=== PATIENT | male | born 1940 | race Caucasian/White ===

== ENCOUNTER 2018-05-26 07:39 | Day surgery (SDC) | payer OTHER ==
[~2018-05-26] VITALS: Ht 185.4 cm; Wt 101.3 kg
[~2018-05-26 07:39] MED LIST: ALBU90OI61 INH; ASPI81CH PO; ATOR40TA PO; BUDE10.22 INH; BUDE6HFA; BUDE6HFA INH; CHOL10002; CLOP75 PO; CLOTRIMAZOLE 1%; Calcium Carbon650 MG PO; FURO20 PO; Fruity C250 MG PO; GABA300 PO; LEVSOD75 PO; LISI20 PO; Lisinopril2.5 MG PO; MECL25 PO; METO50ER PO; OMEP20ER PO; OMEPRAZOLE BIC PO; PANT40 PO; PRED20 PO; ROPI1 PO; ROPI2 PO; SILD50TA PO; SPIR25 PO; Synthroid175 MCG PO; TERA5 PO; TIOT18 INH; TRIA80TC TOP; Terazosin HCl10 MG PO; Ventolin/Prove6.7 GM; Viagra100 MG PO; ferrous sulfate PO
[2018-05-26] MEDS ORDERED: Fruity C250 MG PO (08:40)
[2018-05-26] MEDS ORDERED: ASPI81CH PO (08:40)
[2018-05-26] MEDS ORDERED: Ferrous Sulfat325 M2 PO (08:41)
[2018-05-26] MEDS ORDERED: ATOR40TA PO (08:41)
[2018-05-26] MEDS ORDERED: METO100ER PO (08:42)
[2018-05-26] MEDS ORDERED: LISI5 PO (08:42)
[2018-05-26] MEDS ORDERED: PRAM.5 PO (08:43)
[2018-05-26] MEDS ORDERED: MYCO250 PO (08:45)
[2018-05-26] MEDS ORDERED: PANT40 PO (08:45)
[2018-05-26] MEDS ORDERED: ROPI2 PO (08:46)
[2018-05-26] MEDS ORDERED: SPIR25 PO (08:46)
--- NOTE | 2018-05-26 08:53 | NUR ---
05/26/18 0853 Charline Morrow V PT RESTING WITH HEAD ELEVATED IN BED, SIDE RAILS IN PLACE, CALL LIGHT WITHIN REACH, VSS, PT TEACHING COMPLETED. PT STATES HE IS COMFORTABLE AND DENIES PAIN, DISCOMFORT, AND QUESTIONS AT THIS TIME.
--- NOTE | 2018-05-26 10:10 | NUR ---
05/26/18 1010 Xochilt Hernández DISCUSSED DC INSTRUCTIONS W/PT, ANSWERED ALL QUESTIONS. PT IS NOW WAITING FOR RIDE TO ARRIVE.
== END 2018-05-26 10:10 | disposition home or self-care (01) ==
LOC: ORSCSDS 07:39
PROVIDERS: Ophthalmology
PROC: 08RJ3JZ Replacement of Right Lens with Synthetic Substitute, Percutaneous Approach (ICD-10-PCS; principal; 2018-05-26 09:30)
DX: H25.11 Age-related nuclear cataract, right eye (principal); I10 Essential (primary) hypertension; J44.9 Chronic obstructive pulmonary disease, unspecified; I25.2 Old myocardial infarction; Z79.899 Other long term (current) drug therapy
CPT/HCPCS: J2001; J2250; J3301; J7120; V2632

== ENCOUNTER 2018-06-16 06:04 | Day surgery (SDC) | payer OTHER ==
[~2018-06-16] VITALS: Ht 185.4 cm; Wt 103.5 kg
[~2018-06-16 06:04] MED LIST changes: +Ferrous Sulfat325 M2 PO; +LISI5 PO; +METO100ER PO; +MYCO250 PO; +PRAM.5 PO
--- NOTE | 2018-06-16 06:40 | NUR ---
06/16/18 0640 Ayse Quintero 1 IV ATTEMPT RIGHT HAND BY ORSC.NVP, COULDN'T FEED CATHETER. 1 IV ATTEMPT RIGHT WRSIT BY ORSC.KNM, COULDN'T FEED CATHETER. SUCCESSFUL IV PLACED IN RIGHT FOREARM BY ORSC.KNM. PT TOLERATED ALL ATTEMPTS WELL.
--- NOTE | 2018-06-16 07:54 | NUR ---
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
== END 2018-06-16 08:06 | disposition home or self-care (01) ==
LOC: ORSCSDS 06:04
PROVIDERS: Ophthalmology
PROC: 08RK3JZ Replacement of Left Lens with Synthetic Substitute, Percutaneous Approach (ICD-10-PCS; principal; 2018-06-16 07:30)
DX: H25.12 Age-related nuclear cataract, left eye (principal); I10 Essential (primary) hypertension; I25.2 Old myocardial infarction; K21.9 Gastro-esophageal reflux disease without esophagitis; J44.9 Chronic obstructive pulmonary disease, unspecified; J45.998 Other asthma; E66.9 Obesity, unspecified; Z68.30 Body mass index [BMI] 30.0-30.9, adult; Z79.82 Long term (current) use of aspirin; Z79.899 Other long term (current) drug therapy
CPT/HCPCS: J2001; J2250; J3301; J7120; V2632

== ENCOUNTER 2018-07-02 04:19 | Inpatient (IN) | payer MEDICARE ==
[~2018-07-02] VITALS: Ht 218.4 cm; Wt 93.5 kg
[2018-07-02 04:57] LABS: BASOPHILS ABSOLUTE AUTO 0.05 K/mm3 (0.00-0.23); BASOPHILS PERCENT AUTO 0 % (0-2); EOSINOPHILS ABSOLUTE AUTO 0.02 K/mm3 (0.00-0.68); EOSINOPHILS PERCENT AUTO 0 % (0-6); Hematocrit 38.1 % (37.0-53.0); Hemoglobin 11.5 g/dL (13.5-17.5); IMMATURE GRAN ABSOLUTE AUTO 0.33 K/mm3 (0.00-0.10); IMMATURE GRAN PERCENT AUTO 2 % (0-1); LYMPHOCYTES ABSOLUTE AUTO 1.49 K/mm3 (0.84-5.20); LYMPHOCYTES PERCENT AUTO 7 % (21-46); MONOCYTES ABSOLUTE AUTO 1.25 K/mm3 (0.16-1.47); MONOCYTES PERCENT AUTO 6 % (4-13); Mean Corpuscular HGB 31.9 pg (26.0-34.0); Mean Corpuscular HGB Conc 30.2 g/dL (31.5-36.5); Mean Corpuscular Volume 106 fL (80-100); Mean Platelet Volume 11.1 fL (9.1-12.4); NEUTROPHILS ABSOLUTE AUTO 17.65 K/mm3 (1.96-9.15); NEUTROPHILS PERCENT AUTO 85 % (41-73); NRBC ABSOLUTE 0.06 K/mm3 (0.00-0.02); NRBC Auto 0.3 /100 WBC (0.0-0.2); Platelet Count 236 K/mm3 (150-400); RDW Coefficient Variation 15.2 % (11.7-14.2); RDW Standard Deviation 58.4 fL (35.1-46.3); Red Blood Cell Count 3.61 M/mm3 (4.30-5.90); White Blood Cell Count 20.79 K/mm3 (4.00-11.30)
[2018-07-02] MEDS ORDERED: AMOX250 PO (04:58)
[2018-07-02] MEDS ORDERED: GUAI600T33 PO (05:00)
[2018-07-02] MEDS ORDERED: CODE30 PO (05:00)
[2018-07-02] MEDS ORDERED: Calcium Carbon650 MG PO (05:00)
[2018-07-02] MEDS ORDERED: LISI20 PO (05:01)
[2018-07-02] MEDS ORDERED: LEVSOD75 PO (05:01)
[2018-07-02] MEDS ORDERED: OLOP.1OPSO BOTHEYES (05:02)
[2018-07-02] MEDS ORDERED: PRAM.5 PO (05:02)
[2018-07-02] MEDS ORDERED: METO100ER PO (05:02)
[2018-07-02] MEDS ORDERED: PANT40 PO (05:02)
[2018-07-02] MEDS ORDERED: PRED20 PO (05:03)
[2018-07-02] MEDS ORDERED: TORS10 PO (05:03)
[2018-07-02] MEDS ORDERED: ASPI81CH PO (05:04)
[2018-07-02] MEDS ORDERED: Ferrous Sulfat325 MG PO (05:04)
[2018-07-02] MEDS ORDERED: ASCO500 PO (05:04)
[2018-07-02] MEDS ORDERED: PSYSENPA PO (05:05)
[2018-07-02] MEDS ORDERED: MYCO250 PO (05:05)
[2018-07-02 05:25] LABS: Albumin, Blood 3.7 g/dL (3.4-5.0); Albumin/Globulin Ratio 1.2 (0.8-1.8); Bilirubin, Total 0.9 mg/dL (0.1-1.0); Bun/Creatinine Ratio 27.7 (12.0-20.0); Calcium, Blood 8.9 mg/dL (8.5-10.1); Creatinine, Blood 1.84 mg/dL (0.60-1.20); Globulin, Blood 3.2 g/dL (2.2-4.0); Potassium, Blood 4.8 mmol/L (3.5-5.5); Total Protein, Blood 6.9 g/dL (6.4-8.2); Troponin I 0.032 ng/mL (0.000-0.040)
[2018-07-02 06:11] LABS: PCO2 Arterial 37.7 mmHg (35-45); PO2 Arterial 86.1 mmHg (80-100); pH Blood Arterial 7.45 (7.35-7.45)
--- NOTE | 2018-07-02 18:48 | NUR ---
PT ADMITTED 1500 TODAY. ADMIT DONE. PT STATES NO BM 2 WEEKS ABD FIRM. CALLED DR EARL, ORDERS FOR BOWEL PREP DONE. BROWN COW, MIRALAX, SENNA GIVEN. BSC PLACED. PT THINKS MAY HELP. PT STILL ON 4L O2 AND COARSE T/O. SPUTUM NEEDED. CUP AT BEDSIDE. ++NOTE: IS IV IN RT ANKLE++ NO OTHER CONCERNS AT THIS TIME. WILL PASS TO PREETI SANDOVAL. BED IN LOW POSTION, CALL LITE IN REACH, CALLS APPROP
--- NOTE | 2018-07-02 18:52 | NUR ---
1600 DR EARL CALLED RE LOW BP 95/47 AND STATUS OF L/R'S. OKAY ONE BAG ONLY WITH THE CHF HISTORY. CONTINUE TO MONITOR. 1830 BP 109/53. IVF RUNNING AT 100. WILL BE FOR ONE BAG ABOVE NOTED.
[2018-07-03 01:41] LABS: Adenovirus Not Detected (NOT DETECT); Bordetella pertussis Not Detected (NOT DETECT); Chlamydophila pneumoniae Not Detected (NOT DETECT); Coronavirus 229E Not Detected (NOT DETECT); Coronavirus HKU1 Not Detected (NOT DETECT); Coronavirus NL63 Not Detected (NOT DETECT); Coronavirus OC43 Not Detected (NOT DETECT); Human Metapneumovirus Not Detected (NOT DETECT); Human Rhinovirus/Enterovirus Not Detected (NOT DETECT); Influenza A Not Detected (NOT DETECT); Influenza A/2009-H1 Not Detected (NOT DETECT); Influenza A/H1 Not Detected (NOT DETECT); Influenza A/H3 Not Detected (NOT DETECT); Influenza B Not Detected (NOT DETECT); Mycoplasma pneumoniae Not Detected (NOT DETECT); Parainfluenza Virus 1 Not Detected (NOT DETECT); Parainfluenza Virus 2 Not Detected (NOT DETECT); Parainfluenza Virus 3 Not Detected (NOT DETECT); Parainfluenza Virus 4 Not Detected (NOT DETECT); Respiratory Syncytial Virus Not Detected (NOT DETECT)
--- NOTE | 2018-07-03 07:35 | NUR ---
SHIFT SUMMARY PT WAS UNABLE TO SLEEP DESPITE BEING TIRED. PT CONTINUED TO SIT ON SIDE OF BED. PT ONLY RECIEVED ONE LITER OF LR ORDERED. PT DENIED ANY SOB OR DIFFICULTY BREATHING. PT HAD NO COMPLAINTS OTHER THAN UNABLE TO SLEEP. PT IS CONCERNED ABOUT HIS EYE DROPS FROM HOME. HE STATES HE NEEDS THEM AND CAN NOT REMEMBER THE NAME. HIS IS GOING TO CALL AND GET NAME OF DROPS THIS AM. PT IS BREATHING EAST AND CALL LIGHT IN REACH.
--- NOTE | 2018-07-03 16:30 | NUR ---
INCENTIVE SPIROMETER GIVEN TO PT, PT DEMONSTRATED CORRECT USAGE. PT INSTRUCTED TO USE SEVERAL TIMES EVERY TWO HOURS FROM WAKING TO HOUR OF SLEEP
--- NOTE | 2018-07-03 18:32 | NUR ---
PT ON RA SINCE THIS MORNING, O2 SATS HOLDING IN THE 90'S WITHOUT DIFFICULTY. INCENTIVE SPIROMETER GIVEN TO PT AND HE IS USING APPROPRIATELY. NO C/O PAIN THIS SHIFT. NO ACUTE CHANGES NOTED, WILL CONTINUE TO MONITOR AND REPORT TO ONCOMING RN
--- NOTE | 2018-07-04 04:08 | NUR ---
SHIFT SUMMARY PT HAD SEVERAL SMALL BM'S THIS SHIFT. PT STILL COMPLAINS OF CONSTIPATION. SUPPOSITORY WAS ORDERED BY PROVIDER. LATER IN SHIFT PT BEGAN OF HAVING INCREASED BACK PAIN AND WAS TX PER EMAR. PT CONTINUED TO HAVE DISCOMFORT. PROVIDER CALLED AND ATIVAN WAS ORDERED FOR OT. PT WAS ABLE TO FALL ASLEEP. PT IS CURRENTLY SLEEPING AND BREATHING EASY. CALL LIGHT IN REACH.
[2018-07-04 08:35] LABS: BASOPHILS ABSOLUTE AUTO 0.01 K/mm3 (0.00-0.23); BASOPHILS PERCENT AUTO 0 % (0-2); EOSINOPHILS PERCENT AUTO 0 % (0-6); Hematocrit 35.1 % (37.0-53.0); Hemoglobin 10.9 g/dL (13.5-17.5); IMMATURE GRAN ABSOLUTE AUTO 0.14 K/mm3 (0.00-0.10); IMMATURE GRAN PERCENT AUTO 1 % (0-1); LYMPHOCYTES ABSOLUTE AUTO 0.43 K/mm3 (0.84-5.20); LYMPHOCYTES PERCENT AUTO 3 % (21-46); MONOCYTES ABSOLUTE AUTO 0.56 K/mm3 (0.16-1.47); MONOCYTES PERCENT AUTO 4 % (4-13); Mean Corpuscular HGB 32.2 pg (26.0-34.0); Mean Corpuscular HGB Conc 31.1 g/dL (31.5-36.5); Mean Corpuscular Volume 104 fL (80-100); Mean Platelet Volume 10.6 fL (9.1-12.4); NEUTROPHILS ABSOLUTE AUTO 12.58 K/mm3 (1.96-9.15); NEUTROPHILS PERCENT AUTO 92 % (41-73); Platelet Count 253 K/mm3 (150-400); RDW Coefficient Variation 14.7 % (11.7-14.2); RDW Standard Deviation 56.5 fL (35.1-46.3); Red Blood Cell Count 3.39 M/mm3 (4.30-5.90); White Blood Cell Count 13.72 K/mm3 (4.00-11.30)
[2018-07-04 08:43] LABS: Calcium, Blood 9.4 mg/dL (8.5-10.1); Creatinine, Blood 1.26 mg/dL (0.60-1.20); Potassium, Blood 4.9 mmol/L (3.5-5.5)
--- NOTE | 2018-07-04 17:58 | NUR ---
PT REPORTING SIGNIFICANT PAIN TO HIS UPPER BACK WHEN HE COUGHS, TEARING UP AFTER A COUGHING SPELL. ORDERS RECEIVED FROM DR EARL FOR 1 NORCO PO Q6H PRN PAIN. PT MEDICATED TWICE, HE REPORTS RELIEF THE FIRST TIME, NOT SO MUCH THE SECOND TIME AROUND. HE HAS STAYING ON ROOM AIR WITH SATS IN THE MID TO UPPER 90'S. LOOSE MOSIT SOUNDING COUGH, NON PRODUCTIVE AT THIS TIME. HE IS HOPING TO BE DISCHARGED HOME TOMORROW. NO ACUTE CHANGES NOTED THIS SHIFT, WILL CONTINUE TO MONITOR AND REPORT TO ONCOMING RN.
--- NOTE | 2018-07-05 04:25 | NUR ---
SHIFT SUMMARY PT CONTINUES TO HAVE EPISODES OF BACK PAIN. PT STATES IT COMES AND GOES WITH HIS COUGH. PT TX PER EMAR AND WAS ABLE TO SLEEP. PT DID WAKE UP WITH INCREASED COUGH AND WAS TX PER EMAR. PT IS SLEEPING AND BREATHING EASY. CALL LIGHT IN REACH.
[2018-07-05 06:16] LABS: BASOPHILS ABSOLUTE AUTO 0.01 K/mm3 (0.00-0.23); BASOPHILS PERCENT AUTO 0 % (0-2); EOSINOPHILS PERCENT AUTO 0 % (0-6); IMMATURE GRAN ABSOLUTE AUTO 0.06 K/mm3 (0.00-0.10); IMMATURE GRAN PERCENT AUTO 1 % (0-1); LYMPHOCYTES PERCENT AUTO 4 % (21-46); MONOCYTES PERCENT AUTO 6 % (4-13); Mean Corpuscular HGB 31.4 pg (26.0-34.0); Mean Corpuscular HGB Conc 30.3 g/dL (31.5-36.5); Mean Corpuscular Volume 104 fL (80-100); Mean Platelet Volume 10.5 fL (9.1-12.4); NEUTROPHILS ABSOLUTE AUTO 7.53 K/mm3 (1.96-9.15); NEUTROPHILS PERCENT AUTO 90 % (41-73); NRBC ABSOLUTE 0.02 K/mm3 (0.00-0.02); NRBC Auto 0.2 /100 WBC (0.0-0.2); Platelet Count 195 K/mm3 (150-400); RDW Coefficient Variation 14.6 % (11.7-14.2); RDW Standard Deviation 55.6 fL (35.1-46.3); Red Blood Cell Count 3.18 M/mm3 (4.30-5.90)
[2018-07-05 06:55] LABS: Bun/Creatinine Ratio 27.7 (12.0-20.0); Calcium, Blood 9.1 mg/dL (8.5-10.1); Creatinine, Blood 1.19 mg/dL (0.60-1.20); Potassium, Blood 5.2 mmol/L (3.5-5.5)
--- NOTE | 2018-07-05 13:26 | NUR ---
Per admit trigger, I met with Mr. Ozuna to offer prayer and spiritual support. he spoke at length about his frustration with the [place] health system. He also expressed concerns about his illness. He responded well to emotional affirmation, theraputic listening, and prayer. I will remain available.
--- NOTE | 2018-07-06 05:19 | NUR ---
SHIFT SUMMARY PATIENT HAS HAD AN UNEVENTFUL NIGHT. CONTINUES TO COUGH WHICH CAUSES BACK PAIN. REQUESTED NORCO TWICE THIS SHIFT WITH POSITIVE RESULTS. VITALS HAVE BEEN STABLE. PATIENT TRANSFERS SELF INDEPENDENTLY TO/FROM BSC. SEVERAL BM'S THIS SHIFT. PATIENT HAS BEEN APPROPRIATE WITH STAFF. WILL CONTINUE TO MONITOR.
--- NOTE | 2018-07-06 18:14 | NUR ---
SHIFT SUMMARY PT INDEPENDENT IN ROOM. HAS REQUESTED PAIN MEDS NEEDED FOR BACK PAIN DUE TO COUGHING FROM PNEUMONIA. ON RA AND SOB WITH EXERTION. HAD NAUSEA THIS MORNING WHICH PT REPORTS HE HAS OCCASIONALLY BUT NOT BAD THIS MORNING. ZOFRAN GIVEN AND PT RESTED FOR A WHILE AND IT RESOLVED.
--- NOTE | 2018-07-07 06:25 | NUR ---
*SHIFT SUMMARY* PATIENT IS ALERT AND ORIENTED. PATIENT IS ON ROOM AIR, AND DENIES THE NEED FOR CPAP AT NIGHT. PATIENT HAS SOB WITH EXERTION. PATIENT IS INDEPENDENT TO BATHROOM. PATIENT DISCUSSED WITH STAFF THAT HE IS EAGER TO GET HOME ONCE HE GETS POWER AT HIS HOUSE. PATIENT SLEPT WELL THROUGHOUT THE NIGHT. NO NEW CHANGES TO STATUS. CALL LIGHT WITHIN REACH, BED LOWERED AND LOCKED.
[2018-07-07] MEDS ORDERED: Augmentin 875-1 EACH PO (12:56)
[2018-07-07] MEDS ORDERED: BENZ100A PO (12:56)
[2018-07-07] MEDS ORDERED: DOXY100 PO (12:57)
[2018-07-07] MEDS ORDERED: ROBITUSSIN COU237 ML PO (12:57)
[2018-07-07] MEDS ORDERED: GUAI600T33 PO (12:58)
[2018-07-07] MEDS ORDERED: HYDR-86 PO (12:58)
[2018-07-07] MEDS ORDERED: LIDO700A20 TOP (12:58)
[2018-07-07] MEDS ORDERED: ACIDOPHILUS LA1 EACH PO (12:59)
[2018-07-07] MEDS ORDERED: PANT40 PO (12:59)
[2018-07-07] MEDS ORDERED: GENPREOPSU LEFTEYE (13:00)
--- NOTE | 2018-07-07 13:47 | NUR ---
Met pt. sitting up in his bed and on phone he reports doing well encouraged pt and prayed for him
--- NOTE | 2018-07-07 15:30 | NUR ---
DISCHARGE INSTRUCTIONS COMPLETED AND DISCUSSED WITH PT EXPRESSING UNDERSTANDING. SOMEONE FROM HOSPITAL ASSISTED PT IN OBTAINING MEDS FROM IN [facility] AND A RIDE ARRANGED TO GET HIM HOME. GAS ARRANGED WELL FOR PTS GENERATOR SO PT CAN FILL IT WHEN HE GETS HOME. PT HAS BEEN INDEPENDENT IN ROOM BUT REMAINS WEAK. REPORTS SOB AT BASELINE FOR HIM. TO [facility] VIA W/C WITH RIDE AT [facility] TO TAKE HIM HOME.
== END 2018-07-07 15:03 | disposition home health service (06) | DRG 871 ==
LOC: ER 04:19 → ERHOLD 06:09 → MEDS 14:40
PROVIDERS: Emergency Medicine; Internal Medicine; ADMIT Family Medicine
DX: A41.9 Sepsis, unspecified organism (principal); J18.9 Pneumonia, unspecified organism; J96.01 Acute respiratory failure with hypoxia; J44.1 Chronic obstructive pulmonary disease with (acute) exacerbation; J44.0 Chronic obstructive pulmonary disease with (acute) lower respiratory infection; N17.9 Acute kidney failure, unspecified; R65.20 Severe sepsis without septic shock; Y95 Nosocomial condition; G70.00 Myasthenia gravis without (acute) exacerbation; E86.0 Dehydration; D63.8 Anemia in other chronic diseases classified elsewhere; I50.9 Heart failure, unspecified; I25.10 Atherosclerotic heart disease of native coronary artery without angina pectoris; K21.9 Gastro-esophageal reflux disease without esophagitis; E03.9 Hypothyroidism, unspecified; Z95.5 Presence of coronary angioplasty implant and graft; Z88.1 Allergy status to other antibiotic agents; Z79.52 Long term (current) use of systemic steroids; Z79.899 Other long term (current) drug therapy; Z87.891 Personal history of nicotine dependence
CPT/HCPCS: 36415; 36600; 71046; 80048; 80053; 80202; 82803; 83605; 83735; 83880; 84145; 84484; 85025; 87040; 87070; 87205; 87486; 87581; 87633; 87798; 93005; 93010; 94010; 94640; 94667; 94668; 94760; 96365; 96366; 96367; 96372-59; 96375; 98960; 99285-25; J1650; J1956; J2405; J2543; J2930; J3370; J7050; J7120; J7517

== ENCOUNTER 2018-12-29 19:11 | Observation (INO) | payer OTHER ==
[~2018-12-29] VITALS: Ht 172.7 cm; Wt 84.8 kg
[~2018-12-29 19:11] MED LIST changes: +ACIDOPHILUS LA1 EACH PO; +AMOX250 PO; +ASCO500 PO; +Aspirin EC81 MG PO; +Augmentin 875-1 EACH PO; +BENZ100A PO; +BUME1 PO; +CODE30 PO; +DOCU100 PO; +DOXY100 PO; +Ferrous Sulfat325 MG PO; +GENPREOPSU LEFTEYE; +GUAI600T33 PO; +HYDR-86 PO; +IRON PO; +LIDO700A20 TOP; +OLOP.1OPSO BOTHEYES; +PSYSENPA PO; +ROBITUSSIN COU237 ML PO; +STRIVERDI RESPIM4 GM INH; +TORS10 PO
[2018-12-29 19:36] LABS: BASOPHILS PERCENT AUTO 0 % (0-2); EOSINOPHILS PERCENT AUTO 0 % (0-6); Hematocrit 27.8 % (37.0-53.0); Hemoglobin 8.8 g/dL (13.5-17.5); IMMATURE GRAN ABSOLUTE AUTO 0.08 K/mm3 (0.00-0.10); IMMATURE GRAN PERCENT AUTO 1 % (0-1); LYMPHOCYTES ABSOLUTE AUTO 0.27 K/mm3 (0.84-5.20); LYMPHOCYTES PERCENT AUTO 3 % (21-46); MONOCYTES ABSOLUTE AUTO 0.25 K/mm3 (0.16-1.47); MONOCYTES PERCENT AUTO 3 % (4-13); Mean Corpuscular HGB 31.9 pg (26.0-34.0); Mean Corpuscular HGB Conc 31.7 g/dL (31.5-36.5); Mean Corpuscular Volume 101 fL (80-100); Mean Platelet Volume 11.2 fL (9.1-12.4); NEUTROPHILS ABSOLUTE AUTO 7.58 K/mm3 (1.96-9.15); NEUTROPHILS PERCENT AUTO 93 % (41-73); Platelet Count 196 K/mm3 (150-400); RDW Coefficient Variation 14.3 % (11.7-14.2); RDW Standard Deviation 51.9 fL (35.1-46.3); Red Blood Cell Count 2.76 M/mm3 (4.30-5.90); White Blood Cell Count 8.18 K/mm3 (4.00-11.30)
[2018-12-29 19:51] LABS: Albumin, Blood 3.2 g/dL (3.4-5.0); Albumin/Globulin Ratio 1.3 (0.8-1.8); Bilirubin, Total 0.4 mg/dL (0.1-1.0); Bun/Creatinine Ratio 37.9 (12.0-20.0); Calcium, Blood 8.1 mg/dL (8.5-10.1); Creatinine, Blood 1.9 mg/dL (0.60-1.20); Globulin, Blood 2.5 g/dL (2.2-4.0); Potassium, Blood 3.9 mmol/L (3.5-5.5); Total Protein, Blood 5.7 g/dL (6.4-8.2)
--- NOTE | 2018-12-30 01:03 | NUR ---
PT ARRIVED TO THE FLOOR AROUND 0000. HE COMPLAINS OF 5/10 PAIN IN HIS RIGHT HAMSTRING. VITALS ARE STABLE AT THIS TIME, AND PT WAS TRANSFERRED TO THE BED A 1X. PT EDUCATED TO CALL IF HE NEEDS TO GET OOB AND WAS RECEPTIVE TO EDUCATION. NO OTHER COMPLAINTS AT THIS TIME.
--- NOTE | 2018-12-30 03:37 | NUR ---
SHIFT SUMMARY PT IS ALERT, ORIENTED, AND 1X W/ WALKER. PT AGREED NOT TO STAND WITHOUT ASSISTANCE DUE TO HIS DIZZINESS. PT HAS ADEQUATE URINE OUTPUT AND CONTINUES TO GET ORDERED HYDRATION. PT COMPLAINS OF RIGHT HAMSTRING PAIN AND STATED IT HAS BEED HAPPENING FOR A WHILE. MD AWARE. NO OTHER COMPLAINTS AT THIS TIME VSS. WILL CONTINUE TO MONITOR.
[2018-12-30 05:56] LABS: BASOPHILS ABSOLUTE AUTO 0.01 K/mm3 (0.00-0.23); BASOPHILS PERCENT AUTO 0 % (0-2); EOSINOPHILS ABSOLUTE AUTO 0.01 K/mm3 (0.00-0.68); EOSINOPHILS PERCENT AUTO 0 % (0-6); Hematocrit 25.7 % (37.0-53.0); IMMATURE GRAN ABSOLUTE AUTO 0.06 K/mm3 (0.00-0.10); IMMATURE GRAN PERCENT AUTO 1 % (0-1); LYMPHOCYTES PERCENT AUTO 15 % (21-46); MONOCYTES PERCENT AUTO 7 % (4-13); Mean Corpuscular HGB 31.7 pg (26.0-34.0); Mean Corpuscular HGB Conc 31.1 g/dL (31.5-36.5); Mean Corpuscular Volume 102 fL (80-100); NEUTROPHILS ABSOLUTE AUTO 6.41 K/mm3 (1.96-9.15); NEUTROPHILS PERCENT AUTO 77 % (41-73); Platelet Count 145 K/mm3 (150-400); RDW Coefficient Variation 14.1 % (11.7-14.2); RDW Standard Deviation 52.9 fL (35.1-46.3); Red Blood Cell Count 2.52 M/mm3 (4.30-5.90); White Blood Cell Count 8.29 K/mm3 (4.00-11.30)
[2018-12-30 06:20] LABS: Bun/Creatinine Ratio 48.3 (12.0-20.0); Calcium, Blood 7.9 mg/dL (8.5-10.1); Creatinine, Blood 1.43 mg/dL (0.60-1.20); Potassium, Blood 3.6 mmol/L (3.5-5.5)
[2018-12-30 14:45] LABS: Albumin, Blood 3.2 g/dL (3.4-5.0); Anion Gap 11 mmol/L (6-16); Blood Urea Nitrogen 57 mg/dL (8-24); Bun/Creatinine Ratio 49.6 (12.0-20.0); CO2, Blood 23 mmol/L (21-32); Calcium, Blood 8.1 mg/dL (8.5-10.1); Chloride, Blood 108 mmol/L (98-108); Creatinine, Blood 1.15 mg/dL (0.60-1.20); Glomerular Filtration Rate >60 (60-); Glucose, Blood 102 mg/dL (70-99); Phosphorus, Blood 3.2 mg/dL (2.5-4.9); Potassium, Blood 3.8 mmol/L (3.5-5.5); Sodium, Blood 142 mmol/L (136-145)
[2018-12-30] MEDS ORDERED: FERSU300 PO (16:43)
--- NOTE | 2018-12-30 18:22 | NUR ---
PATIENT DISCHARGED HOME WITH BROTHER WHO PICKED HIM UP. PATIENT WAS EXTREMELY ANXIOUS TO DISCHARGE DUE TO FAMILY ISSUES. PATIENT HAD ABRASIONS NOTED ON HIS ARMS. DRESSED WITH NON ADHESIVE PADS AND TEGADERM. ALSO DRESSED WITH MEPILEX. IV PULLED. SKIN INTACT, CATHETER INTACT. TELE D/C. ORTHO PERFORMED, NOTIFIED PROVIDER, NO SIGNIFICANT CHANGE TO NOTE. NO DIZZINESS UPON STANDING NOTED.
== END 2018-12-30 17:07 | disposition home or self-care (01) ==
LOC: ER 19:11 → MEDS 19:12
PROVIDERS: Emergency Medicine; Family Medicine; ADMIT Hospitalist
DX: N17.9 Acute kidney failure, unspecified (principal); R55 Syncope and collapse; I11.0 Hypertensive heart disease with heart failure; I50.22 Chronic systolic (congestive) heart failure; I25.10 Atherosclerotic heart disease of native coronary artery without angina pectoris; G70.00 Myasthenia gravis without (acute) exacerbation; D64.9 Anemia, unspecified; J44.9 Chronic obstructive pulmonary disease, unspecified; E03.9 Hypothyroidism, unspecified; Z87.891 Personal history of nicotine dependence; Z88.1 Allergy status to other antibiotic agents; Z79.899 Other long term (current) drug therapy; Z79.82 Long term (current) use of aspirin; Z79.51 Long term (current) use of inhaled steroids; Z79.52 Long term (current) use of systemic steroids
CPT/HCPCS: 36415; 73060; 80048; 80053; 80069; 85025; 93005; 93010; 94640; 94760; 96360; 96361; 97110; 97161; 99285-25; A9270-GY; G0378; J7030

== ENCOUNTER 2019-01-18 00:19 | Emergency (ER) | payer OTHER ==
[~2019-01-18] VITALS: Ht 175.3 cm; Wt 84.4 kg
[~2019-01-18 00:19] MED LIST changes: +FERSU300 PO
[2019-01-18] MEDS ORDERED: Cleocin HCl300 MG PO (00:55)
== END 2019-01-18 01:17 | disposition home or self-care (01) ==
LOC: ER 00:19
DX: S60.022A Contusion of left index finger without damage to nail, initial encounter (principal); Z88.1 Allergy status to other antibiotic agents; Z79.82 Long term (current) use of aspirin; Z79.899 Other long term (current) drug therapy; J44.9 Chronic obstructive pulmonary disease, unspecified; I50.9 Heart failure, unspecified; Z87.01 Personal history of pneumonia (recurrent); Z87.891 Personal history of nicotine dependence; W22.8XXA Striking against or struck by other objects, initial encounter
CPT/HCPCS: 73130; 96372; 99283-25; A9270; J1885

== ENCOUNTER 2019-02-09 11:38 | Inpatient (IN) | payer OTHER, MEDICARE ==
[~2019-02-09] VITALS: Ht 172.7 cm; Wt 79.3 kg
[~2019-02-09 11:38] MED LIST changes: +Cleocin HCl300 MG PO
[2019-02-09 12:12] LABS: PCO2 Arterial 27.5 mmHg (35-45)
[2019-02-09 12:13] LABS: pH Blood Arterial 7.09 (7.35-7.45)
[2019-02-09 12:14] LABS: PO2 Arterial >500 mmHg (80-100)
[2019-02-09 12:17] LABS: BASOPHILS ABSOLUTE AUTO 0.03 K/mm3 (0.00-0.23); BASOPHILS PERCENT AUTO 0 % (0-2); EOSINOPHILS PERCENT AUTO 0 % (0-6); Hematocrit 27.6 % (37.0-53.0); IMMATURE GRAN ABSOLUTE AUTO 0.44 K/mm3 (0.00-0.10); IMMATURE GRAN PERCENT AUTO 2 % (0-1); LYMPHOCYTES ABSOLUTE AUTO 0.47 K/mm3 (0.84-5.20); LYMPHOCYTES PERCENT AUTO 2 % (21-46); MONOCYTES ABSOLUTE AUTO 0.72 K/mm3 (0.16-1.47); MONOCYTES PERCENT AUTO 3 % (4-13); Mean Corpuscular HGB 32.5 pg (26.0-34.0); Mean Corpuscular Volume 112 fL (80-100); Mean Platelet Volume 12.5 fL (9.1-12.4); NEUTROPHILS ABSOLUTE AUTO 19.32 K/mm3 (1.96-9.15); NEUTROPHILS PERCENT AUTO 92 % (41-73); NRBC ABSOLUTE 0.03 K/mm3 (0.00-0.02); NRBC Auto 0.1 /100 WBC (0.0-0.2); Platelet Count 147 K/mm3 (150-400); RDW Coefficient Variation 17.5 % (11.7-14.2); RDW Standard Deviation 71.5 fL (35.1-46.3); Red Blood Cell Count 2.46 M/mm3 (4.30-5.90); White Blood Cell Count 20.98 K/mm3 (4.00-11.30)
[2019-02-09 12:32] LABS: Albumin, Blood 2.5 g/dL (3.4-5.0); Albumin/Globulin Ratio 0.8 (0.8-1.8); Bilirubin, Total 1.5 mg/dL (0.1-1.0); Bun/Creatinine Ratio 24.5 (12.0-20.0); Creatinine, Blood 2.12 mg/dL (0.60-1.20); Globulin, Blood 3.2 g/dL (2.2-4.0); Magnesium, Blood 2.4 mg/dL (1.6-2.4); Potassium, Blood 4.1 mmol/L (3.5-5.5); Total Protein, Blood 5.7 g/dL (6.4-8.2); Troponin I 0.219 ng/mL (0.000-0.040)
[2019-02-09 12:44] LABS: International Normalized Ratio 1.69; Prothrombin Time Results 17.1 Sec (9.7-11.5)
--- NOTE | 2019-02-09 15:11 | NUR ---
Echocardiogram using 0.6ml of Definity contrast performed.
[2019-02-09 15:57] LABS: Source, Urine Catheter
[2019-02-09 16:12] LABS: Appearance, Urine Turbid (Clear); Bilirubin, Urine Neg (Neg); Blood, Urine 5+ (Neg); Color, Urine Yellow (P-Yellow); Glucose Qualitative, Urine Neg (Neg); Ketones, Urine 2+ (Neg); Leukocyte Esterase, Urine 3+ (Neg); Nitrite, Urine Pos (Neg); Protein, Urine 4+ (Neg); Urobilinogen, Urine 1+ (Normal)
[2019-02-09 16:30] LABS: Red Blood Cells, Urine TNTC /hpf (0-2); White Blood Cells, Urine TNTC /hpf (0-5)
[2019-02-09 16:31] LABS: Bacteria Many /hpf; Squamous Epithelial Cells Few /hpf (Few)
[2019-02-09 18:27] LABS: PCO2 Arterial 41.2 mmHg (35-45); PO2 Arterial 99.4 mmHg (80-100); pH Blood Arterial 7.29 (7.35-7.45)
--- NOTE | 2019-02-09 20:13 | NUR ---
PT ADMITTED TO ICU AT 1530 FROM ER. PT ARRIVED ON MECH VENT W FENT GTT AT 50MCG/HR. PT NOT RESPONSIVE TO PAIN. DR ROSARIO CONSULTED AND IN UNIT AT TIME OF ADMIT. FENT GTT DC'D UPON ADMIT. NS AT 50CC/HR AND LATER CHNAGED BY DR ROSARIO TO LR AT 125. 1LITER BOLUS ASLO GIVEN PER DR ROSARIO. DR LINCOLN [facility] PT IN SINUS TACH WITH ECTOPY; PAC'S AND SOME PVC'S. RHYTHM APPEARS TO BE AFIB AT TIMES; RATE VARIES FROM 90 TO 150. RATE IMPROVED AFTER BOLUS. PT AWOKE AT 1700; RESTLESS, ATTEMPTED TO FOLLOW SIMPLE COMMAND. PROPOFOL STARTED AT 20MCG W GOOD EFFECT. PT'S S/O NOTIFIED AND UPDATED. DR ROSARIO ALSO UPDATED S/O. PT HAS NO CHILDREN PER S/O. DR LINCOLN CALLED R/T 6 BEAT RUN OF VT. AMIODARONE GTT ORDERED. REPORT GIVEN TO ONCOMING LORI
--- NOTE | 2019-02-09 20:23 | NUR ---
ASSUMED PT CARE AT 1915 PT INTUBATED AND SEDATED. VENT SETTINGS: AC 14, TV 450, PEEP 5, FIO2 30%; RR 14-20. PROPOFOL AT 20MCG/KG/MIN AND PT IS STILL ABLE TO WITHDRAWAL FROM NOXIOUS STIMULI. PT APPEARS TO BE IN SINUS TACHYCARDIA WITH MULITPLE PAC'S AND PVC'S. DR. GALLARDO ORDERED AMIODARONE BOLUS 150MG TO BE GIVEN OVER ONE HOUR; THEN 0.5MG/MIN CONTINUOUS AFTER THAT. ORDERS TO DISCONTINUE AMIODARONE IF BLOOD PRESSURES START TO DROP; BOLUS CURRENTLY INFUSING. LR ALSO INFUSING AT 125MLS/HR. LUNG SOUNDS REMAIN CLEAR T/O ALL LOBES. NO SPUTUM PRODUCED AFTER SUCTIONING; COUGH AND GAG REFLEX INTACT. EXTREMITIES ARE COOL TO THE TOUCH; BILATERAL KNEES AND HEELS ARE NOTED TO BE MOTTLED. HEELS ARE BLANCHABLE WITH AN INTACT SCAB NOTED TO LEFT HEEL. PT HAS SCATTERED BRUISING NOTED TO BUE'S AND EXCORIATION/REDNESS NOTED TO SCROTUM. NO FAMILY AT BEDSIDE AT THIS TIME. VSS REMAIN STABLE AT THIS TIME; WILL CONTINUE TO MONITOR.
--- NOTE | 2019-02-10 00:27 | NUR ---
DR. ROSARIO UPDATE GIVEN IN REGARDS TO BLOOD PRESSURE RUNNING ON THE LOWER SIDE; WITH MAP'S 60'S AND SYSTOLIC BP 70'S-80'S. DR. ROSARIO STATED SHE WOULD BE IN FOR CENTRAL LINE PLACEMENT AND TO GO AHEAD AN ORDER LEVOPHED.
--- NOTE | 2019-02-10 01:00 | NUR ---
DR. ROSARIO AT BEDSIDE
[2019-02-10 03:35] LABS: Hematocrit 20.3 % (37.0-53.0); Hemoglobin 6.3 g/dL (13.5-17.5); Mean Corpuscular HGB 32.3 pg (26.0-34.0); Mean Platelet Volume 12.4 fL (9.1-12.4); Platelet Count 79 K/mm3 (150-400); RDW Coefficient Variation 16.9 % (11.7-14.2); RDW Standard Deviation 64.1 fL (35.1-46.3); Red Blood Cell Count 1.95 M/mm3 (4.30-5.90); White Blood Cell Count 19.96 K/mm3 (4.00-11.30)
[2019-02-10 03:53] LABS: BAND PERCENT MAN 15 % (0-8); BASOPHILS PERCENT MAN 0 % (0-2); EOSINOPHILS PERCENT MAN 0 % (0-6); MONOCYTES PERCENT MAN 1 % (4-13); SEG NEUTROPHILS PERCENT MAN 84 % (41-73); TOTAL CELLS COUNTED 100
[2019-02-10 03:56] LABS: Albumin, Blood 2.1 g/dL (3.4-5.0); Albumin/Globulin Ratio 0.9 (0.8-1.8); Alk Phos 143 U/L (50-136); Anion Gap 13 mmol/L (6-16); Bilirubin, Total 1.4 mg/dL (0.1-1.0); Blood Urea Nitrogen 63 mg/dL (8-24); Bun/Creatinine Ratio 28.3 (12.0-20.0); CO2, Blood 21 mmol/L (21-32); Calcium, Blood 6.8 mg/dL (8.5-10.1); Chloride, Blood 103 mmol/L (98-108); Creatinine, Blood 2.23 mg/dL (0.60-1.20); Globulin, Blood 2.4 g/dL (2.2-4.0); Glomerular Filtration Rate 31 (60-); Glucose, Blood 107 mg/dL (70-99); Magnesium, Blood 1.9 mg/dL (1.6-2.4); Phosphorus, Blood 4.8 mg/dL (2.5-4.9); Potassium, Blood 3.9 mmol/L (3.5-5.5); Sodium, Blood 137 mmol/L (136-145); Total Protein, Blood 4.5 g/dL (6.4-8.2); Vancomycin, Random 15.5 ug/mL
[2019-02-10 03:58] LABS: EOSINOPHILS PERCENT AUTO 0 % (0-6); IMMATURE GRAN ABSOLUTE AUTO 0.72 K/mm3 (0.00-0.10); IMMATURE GRAN PERCENT AUTO 4 % (0-1); Mean Corpuscular Volume 104 fL (80-100); NEUTROPHILS PERCENT AUTO 94 % (41-73)
[2019-02-10 04:16] LABS: Alanine Aminotransfer (ALT/SGP 2648 U/L (12-78); Aspartate Aminotrans (AST/SGOT 3788 U/L (12-37)
[2019-02-10 04:57] LABS: PCO2 Arterial 35.3 mmHg (35-45); PO2 Arterial 101 mmHg (80-100); pH Blood Arterial 7.39 (7.35-7.45)
--- NOTE | 2019-02-10 06:16 | NUR ---
END OF SHIFT SUMMARY PT REMAINS INTUBATED AND SEDATED. PROPOFOL NOW AT 30MCG/KG/MIN AT 20MCG/KG/MIN PT WAS ABLE TO OPEN EYES, TRACK WITH EYES, NOD HEAD YES/NO TO QUESTIONS, AND RESPOND TO PAIN. VENT SETTINGS REMAIN UNCHANGED. CENTRAL LINE WAS PLACED BY DR. ROSARIO TO RIGHT IJ D/T BLOOD PRESSURES DECREASING AND NEEDING TO START LEVOPHED; PT TOLERATED PROCEDURE WELL. LEVOPHED CURRENTLY AT 3MCG/MIN. LR AT 125MLS/HR. PT HAS REMAINED IN SINUS TACHYCARDIA WITH PAC'S AND PVC'S T/O SHIFT; NO RUNS OF VTACH NOTED THIS SHIFT. AMIODARONE CONTINUES AT 0.5MG/MIN. OG REMAINS HOOKED TO LOW INTERMITTENT SUCTION WITH MODERATE AMOUNTS OF DARK BROWN WITH STREAKS OF RED AND UNDIGESTED FOOD NOTED TO CANISTER. HGB CAME BACK LOW AT 6.3; THEREFORE, DR. ROSARIO GAVE ORDERS FOR ONE UNIT OF PRBC'S AND TO RECHECK H&H 30 MINUTES AFTER PRBC'S HAVE INFUSED. NO BM NOTED THIS SHIFT. PATTEN CATH REMAINS PATENT AND DRAINING TO GRAVITY; TEA COLORED WITH RED SEDIMENT NOTED. PT CONTINUES TO BLEED FROM MEATUS AND SCROTUM; CATH CARE AND SKIN CARE PROVIDED. PT IS VERY EDEMATOUS TO BLE'S; MALOU HOSE AND SCD'S APPLIED. PINK HEEL BOOTIES APPLIED TO PROTECT HEELS FROM BREAKDOWN THEY APPEAR RED (BLANCHABLE), AND FRAGILE. WILL CONTINUE TO MONITOR UNTIL REPORT IS HANDED OFF TO ONCOMING RN.
--- NOTE | 2019-02-10 10:07 | NUR ---
PT SEDATED ON PROPOFOL AT 30MCG FOR MECH VENT. PT AROUSES TO VOICE, FOLLOWS DIRECTIONS AND NODS HEAD APPOPRIATELY. DENIES C/O PAIN. DR LINCOLN IN TO SEE PT THIS AM; UPDATE GIVEN. SCID INTEROGATED. DEVICE IN GOOD WORKING ORDER, WILL ONLY SHOCK FOR VFIB/OR SUSTAINED VT WITH RATE >200-220. AMIO GTT AT 0.5MG/MIN. LEVOPHED DECREASED FROM 3MCG TO 2MCG. BLOOD TRANSFUSION COMPLETED WITHOUT ANY ADVERSE REACTIONS. PT'S S/O UPDATED.
--- NOTE | 2019-02-10 11:28 | NUR ---
DR ROSARIO IN TO SEE PT. LABS DRAWN, NEW ORDERS PLACED. LEVOPHED REMAINS AT 2MCGS.
[2019-02-10 11:53] LABS: Hematocrit 24.3 % (37.0-53.0); Hemoglobin 7.7 g/dL (13.5-17.5)
--- NOTE | 2019-02-10 12:00 | NUR ---
NO CHANGES FROM PRIOR ASSESSMENT. PT APPEARS COMFORTABLE ON 30MCG OF PROPOFOL FOR MECH VENT. LEVOPHED AT 2MCG.
--- NOTE | 2019-02-10 12:54 | NUR ---
PT'S SIGNIFICANT OTHER PROVIDED WITH UPDATE ON PT CONDITION BY DR. ROSARIO OVER THE PHONE.
--- NOTE | 2019-02-10 15:18 | NUR ---
VITAL HIGH PROTEIN TUBE FEEDING STARTED AT 20CC/HR W GOAL RATE OF 60CC. PT STILL AROUSES TO VOICE, AND DENIES DISCOMFORT PER HEAD NODS.
--- NOTE | 2019-02-10 19:55 | NUR ---
LEVOPHED TURNED OFF AT 1330. LEVOPHED RESTARTED AT 2MCG AT 1700 FOR MAP <60. PT CONTINUED TO WAKE UP TO VOICE AND DENIED COMPLAINTS VIA HEAD NODS. REPORT GIVEN TO ISAAC SANDOVAL
--- NOTE | 2019-02-10 21:26 | NUR ---
Emmet of Care: Care assumed at 1900hr. Patient intubated and sedated with propofol at 30 mcg/kg/min. Patient easily roused to verbal stimuli, able to follow commands, and non head yes/no. Denies pain/discomfort, appears comfortable. Ventilator to AC 14/450/5/30%, O2-98-100%. Levophed at 2mcg/min, BP stable. Shortly after shift change, patient had 13 beat run of V-tach. Dr. Hudson ordered to D/C Levophed and start Hosea-synephrine gtt. Hosea-synephrine gtt started at 40mcg/min at approx 2000hr, BP remains stable. Central line to rt IJ patent and intact, infusing without difficulty. Power-glide to MAX patent and intact, SL at this time. Bruno cath paten and intact, drain clear dark yellow urine. Will continue to monitor for pain safety comfort.
[2019-02-11 03:47] LABS: Hematocrit 23.6 % (37.0-53.0); Hemoglobin 7.5 g/dL (13.5-17.5); Mean Corpuscular HGB 32.2 pg (26.0-34.0); Mean Corpuscular HGB Conc 31.8 g/dL (31.5-36.5); NRBC ABSOLUTE 0.02 K/mm3 (0.00-0.02); NRBC Auto 0.1 /100 WBC (0.0-0.2); Platelet Count 87 K/mm3 (150-400); RDW Coefficient Variation 17.2 % (11.7-14.2); RDW Standard Deviation 63.5 fL (35.1-46.3); Red Blood Cell Count 2.33 M/mm3 (4.30-5.90); White Blood Cell Count 20.58 K/mm3 (4.00-11.30)
[2019-02-11 03:48] LABS: Mean Corpuscular Volume 101 fL (80-100); Mean Platelet Volume 13.1 fL (9.1-12.4)
[2019-02-11 04:01] LABS: International Normalized Ratio 1.55; Prothrombin Time Results 15.8 Sec (9.7-11.5)
[2019-02-11 04:08] LABS: Albumin/Globulin Ratio 0.8 (0.8-1.8); Bilirubin, Total 1.8 mg/dL (0.1-1.0); Bun/Creatinine Ratio 32.8 (12.0-20.0); Creatinine, Blood 1.83 mg/dL (0.60-1.20); Globulin, Blood 2.5 g/dL (2.2-4.0); Magnesium, Blood 2.2 mg/dL (1.6-2.4); Phosphorus, Blood 4.5 mg/dL (2.5-4.9); Potassium, Blood 3.3 mmol/L (3.5-5.5); Total Protein, Blood 4.5 g/dL (6.4-8.2)
[2019-02-11 04:25] LABS: Troponin I 0.594 ng/mL (0.000-0.040)
[2019-02-11 04:38] LABS: BAND PERCENT MAN 12 % (0-8); BASOPHILS PERCENT MAN 0 % (0-2); EOSINOPHILS PERCENT MAN 0 % (0-6); LYMPHOCYTES ABSOLUTE MAN 0.41 K/mm3 (0.84-5.20); LYMPHOCYTES PERCENT MAN 2 % (21-46); MONOCYTES PERCENT MAN 1 % (4-13); NEUTROPHILS ABSOLUTE MAN 19.96 K/mm3 (1.96-9.15); SEG NEUTROPHILS PERCENT MAN 85 % (41-73); TOTAL CELLS COUNTED 100
--- NOTE | 2019-02-11 06:30 | NUR ---
Shift Summary: Patient remained calm and appeared comfortable on propofol at 30-35mcg/kg/min. Remains able to follow simple commands and nod head yes/no. Spontaneous breathing trial/sedation vacation this morning, tolerated well. RT Gopal left ventilator on spontaneous mode, with 100% tube compensation, PEEP-5, Propofol turned back on at 20mcg/kg/min. Patient appears calm and comfortable. Levophed gtt D/C'd at start of shift and Neosynephrine gtt started at 40mcg/min, titrated arianna to 20mcg/min throughout shift. Systolic BP's 90's, MAP's 60's-70's. Central line to rt IJ remains patent and intact, infusing without difficulty. Bruno cath remains patent and intact, draining clear yellow urine, 1,500ml output. Will continue to monitor until report to day shift RN.
[2019-02-11 07:14] LABS: Vancomycin, Random 13.2 ug/mL
--- NOTE | 2019-02-11 09:18 | NUR ---
ASSUMED CARE OF PT AT 0700. REPORT FROM ISAAC SANDOVAL. PT SEDATED AND INTUBATED. VENT SETTINGS, SPONT 5/30%, 100% TUBE COMPENSATION. LUNGS CLEAR. PT RESPONSES TO VERBAL STIMULI. FOLLOWS SIMPLE DIRECTIONS. GAG AND COUGH PRESENT. TOLERATING TUBE WELL. POWER GLIDE TO LUE, RIGHT IJ CENTRAL LINE. AMINODORONE 0.5 MG/MIN AND PROPOFOL 20 MG/KG/MIN INFUSING. HR 60-70, SR. PATTEN PATENT AND DRAINING TO GRAVITY. CLEAR YELLOW URINE. TUBE FEEDING INCREASED TO 60 ML/HR ORDERED, THIS IS GOAL. NO RESIDUALS. WILL CONTINUE TO MONITOR.
--- NOTE | 2019-02-11 10:50 | NUR ---
DR ROSARIO AT BEDSIDE FOR ASSESSMENT. PROPOFOL D/C'D AT 1027. PLAN FOR EXTUBATION. EXTUBATED AT 1035. PT ABLE TO MANAGE SECRETIONS. PLACED ON 2L O2 VIA NC. PT INSTRUCTED TO LIMIT SPEECH AT THIS TIME. PT c SLURRED SPEECH, DIFFICULT TO UNDERSTAND. CALL LIGHT IN REACH. WILL CONTINUE TO MONITOR.
--- NOTE | 2019-02-11 14:07 | NUR ---
PT LAYING IN BED. PT INTERMITTANTLY CONFUSED AND PULLING ON LINES. LINES CONCEALED AND PT REDIRECTED. PT FIXATED ON HEARING AID AND CALLING SO. CALL PLACED TO SO AND MESSAGE LEFT. PT STATES HE IS MORE COMFORTABLE c LIGHTS OFF D/T CATARACTS. VSS. WILL CONTINUE TO MONITOR.
--- NOTE | 2019-02-11 16:54 | NUR ---
PT GIVEN SMALL SIPS OF WATER, TOLERATED WELL. NO COUGHING OR CHOKING. SPEECH CLEAR. ABLE TO MANAGE SECRETIONS. LUNGS CLEAR. PT ON RA. DR ROSARIO UPDATED. IV FLUIDS D/C'D. FULL LIQUID DIET ORDERED. WILL CONTINUE TO MONITOR.
--- NOTE | 2019-02-11 18:07 | NUR ---
SHIFT SUMMARY PT RESTING IN BED, WATCHING TV. A&OX 3. PT EXTUBATED TODAY. LUNGS CLEAR. ON RA. VSS. SPEAKING IN CLEAR SENTANCES, MANAGING SECRETIONS. SWALLOW EVAL COMPLETE. PT TAKING SMALL SIPS OF WATER AND ENSURE DURING SHIFT. IV FLUIDS D/C'D. PT REMAINS ON AMINODORONE 0.5 MCG/MIN. HR 60-70'S. PT DID NOT REQUIRE PRESSORS THIS SHIFT. PT FOLLOWS COMMANDS, ANSWERS QUESTIONS APPROPRIATELY. GETS INTERMITTANTLY CONFUSED DURING CONVERSATION, EASILY REDIRECTABLE. SO UPDATED DURING SHIFT. REPORT TO ONCOMING NURSE.
--- NOTE | 2019-02-11 19:27 | NUR ---
ASSUMED PT CARE AT 1915 PT SITTING UP IN BED AWAKE AND ALERT. 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 STATES THAT THE STAFF RETRIEVED HIS PHONE OUT OF THE GARBAGE, BUT HE CAN'T GET AHOLD OF HIS AND HE IS MORE WORRIED ABOUT HER WELL BEING THAN HIS AT THE MOMENT. REASSURED PT THAT HIS HAD BEEN CONTACTED EARLIER IN THE DAY AND GIVEN AN UPDATE REGARDING HIM DOING BETTER AND THAT SHE IS MORE AT EASE WITH THAT. ALSO REASSURED PT THAT WE REACHED OUT TO IN REGARDS TO HEARING AIDS IN WHICH WE ARE STILL WAITING ON A PHONE CALL BACK. PT VERBALIZED UNDERSTANDING, BUT WOULD THEN GO BACK TO REPEATING HIS CONCERNS; WILL CONTINUE TO REORIENT AND REASSURE PT. CALL LIGHT IS WITHIN REACH. PT IS ON RA WITH BIOX LOW 90'S AND PT TENDS TO DIP TO HIGH 80'S WHEN HE GETS WORKED UP AND BECOMES A LITTLE SOB WITH TALKING; PLACED ON 2L VIA NC; BIOX 100% WITH GOOD WAVE FORM. PT UPSET THAT HE CAN'T GET OUT OF BED AND THAT HE IS 72 YEARS OLD AND SHOULD BE ABLE TO GET UP IF HE PLEASES. REDIRECTED PT IN WHICH HE WAS FINE WITH STAYING IN BED AT THE MOMENT. CALL LIGHT LEFT WITHIN REACH; VSS AT THE MOMENT. WILL CONTINUE TO MONITOR AND CHECK ON PT T/O SHIFT. NO FAMILY AT BEDSIDE AT THIS TIME.
--- NOTE | 2019-02-11 23:27 | NUR ---
UPDATE PT HAD A NON-SUSTAINED RUN OF VTACH; THREE BEAT RUN. PT WAS FIXATED ON HIS AND HER WELL BEING. ATTEMPTED REASSURANCE WITH STATING THAT HIS 'S SON IS STAYING WITH HER TO ENSURE HER COMFORT AND NEEDS ARE BEING MET. HOWEVER, THIS UPSET PT EVEN MORE; HIS HR INCREASED TO 118 WITH THE RUN OF VTACH. SOFTLY TOUCHED PT'S ARM AND GENTLY ASKED HIM TO TAKE A DEEP BREATH HE WAS GETTING WORKED UP AND HIS HR WAS STARTING TO INCREASE AGAIN; PT ABLE TO FOLLOW DIRECTION AND VERBALIZE UNDERSTANDING. PT STATED HE HAS 17 SOMETHING OR OTHER HID AROUND THE HOUSE AND DIDN'T WANT HIS STEP-SON FINDING THEM HE DOESN'T TRUST HIM. UNABLE TO IDENTIFY WHAT THE 17 SOMETHING OR OTHER WAS I DIDN'T WANT PT GETTING WORKED UP AGAIN. THEREFORE, JUST CONTINUED TO REDIRECT PT. LATER PT CALLED OUT ASKING ME TO CALL HIS DIE ENGRAVING SUPERVISOR FROM A [facility] [place], IN WHICH HE WASN'T ABLE TO RECALL THE NAME, IN ORDER FOR "HERBERT" TO COME IN FOR HIM TO GIVE HIS CONFESSIONS TO. HE STATES HE IS VERY WORRIED FOR HIS WELL-BEING AND IS AFRAID TO FALL ASLEEP HE DOESN'T KNOW IF HE WILL WAKE UP. REASSURED PT THAT HIS VITAL SIGNS ARE STABLE RIGHT NOW AND HE IS PROGRESSING FROM WHEN HE FIRST ADMITTED. ENCOURAGED PT THAT HE WAIT TIL MORNING TO MAKE PHONE CALLS SINCE IT IS LATE AT NIGHT; PT AGREED. REASSURED PT THAT HE IS BEING MONITORED BY STAFF ON AN ONGOING BASIS TO ENSURE PT FELT SAFE. WILL CONTINUE REDIRECTION AND REASSURANCE NEEDED ON A CONTINUAL BASIS.
[2019-02-12 04:11] LABS: Hemoglobin 8.5 g/dL (13.5-17.5); Mean Corpuscular HGB 32.2 pg (26.0-34.0); Mean Corpuscular HGB Conc 31.5 g/dL (31.5-36.5); Mean Corpuscular Volume 102 fL (80-100); NRBC ABSOLUTE 0.11 K/mm3 (0.00-0.02); NRBC Auto 0.5 /100 WBC (0.0-0.2); Platelet Count 87 K/mm3 (150-400); RDW Coefficient Variation 17.5 % (11.7-14.2); RDW Standard Deviation 64.5 fL (35.1-46.3); Red Blood Cell Count 2.64 M/mm3 (4.30-5.90); White Blood Cell Count 20.03 K/mm3 (4.00-11.30)
[2019-02-12 04:14] LABS: Mean Platelet Volume 13.3 fL (9.1-12.4)
[2019-02-12 04:26] LABS: BAND PERCENT MAN 12 % (0-8); BASOPHILS PERCENT MAN 0 % (0-2); EOSINOPHILS PERCENT MAN 0 % (0-6); LYMPHOCYTES PERCENT MAN 1 % (21-46); MONOCYTES PERCENT MAN 0 % (4-13); NEUTROPHILS ABSOLUTE MAN 19.82 K/mm3 (1.96-9.15); SEG NEUTROPHILS PERCENT MAN 87 % (41-73); TOTAL CELLS COUNTED 100
[2019-02-12 04:32] LABS: Albumin, Blood 2.2 g/dL (3.4-5.0); Albumin/Globulin Ratio 0.8 (0.8-1.8); Bilirubin, Total 1.6 mg/dL (0.1-1.0); Bun/Creatinine Ratio 38.2 (12.0-20.0); Calcium, Blood 7.5 mg/dL (8.5-10.1); Creatinine, Blood 1.52 mg/dL (0.60-1.20); Globulin, Blood 2.9 g/dL (2.2-4.0); Magnesium, Blood 2.2 mg/dL (1.6-2.4); Phosphorus, Blood 2.1 mg/dL (2.5-4.9); Potassium, Blood 3.9 mmol/L (3.5-5.5); Total Protein, Blood 5.1 g/dL (6.4-8.2)
[2019-02-12 05:05] LABS: PCO2 Arterial 30.8 mmHg (35-45); PO2 Arterial 98.7 mmHg (80-100); pH Blood Arterial 7.46 (7.35-7.45)
--- NOTE | 2019-02-12 06:16 | NUR ---
END OF SHIFT SUMMARY PT HAS BEEN AWAKE ALL NIGHT; DR. ROSARIO ORDERED A ONE TIME DOSE OF AMBIEN THAT WAS UNEFFECTIVE FOR PT. HE REMAINS CONFUSED AND FORGETFUL AT BASELINE, BUT HE IS ABLE TO MAKE HIS BASIC NEEDS KNOWN. 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 AROUND 0130 PT STARTED HAVING NON-SUSTAINED, THREE BEAT RUNS OF VTACH; BP'S REMAINED STABLE. DR. ROSARIO NOTIFIED AT 0155 WHEN PT HAD 5 EPISODES OF THE NON-SUSTAINED, THREE BEAT RUNS OF VTACH WITH STABLE BP'S. DR. ROSARIO WAS CURIOUS TO WHAT CARDIOLOGY'S INPUT WAS; INFORMED THAT THERE WASN'T A NOTE ENTERED SINCE THE . NO NEW ORDERS FROM DR. ROSARIO. PT HAS REMAINED STABLE T/O NIGHT; WILL PASS OFF TO DAY SHIFT IN REGARDS TO REACHING OUT TO CARDIOLOGY TODAY. LUNG SOUNDS HAVE REMAINED CLEAR T/O; PT HAS REMAINED ON 2L VIA NC WITH OXYGEN SATURATIONS GREATER THAN 91%. ABDOMEN REMAINS MODERATELY DISTENDED WITH HYPOACTIVE BT; NO BM SINCE ADMIT. PATTEN CATH REMAINS PATENT AND DRAINING DARK, YELLOW URINE TO GRAVITY. KNEE HIGH COMPRESSION STOCKINGS IN PLACE TO BILATERAL LE'S. PT HAS PREFERRED REMAINING UPRIGHT TO AID WITH BREATHING; PT TENDS TO BECOMES SOB VERY EASILY. HE IS VERY ANXIOUS TO GET UP TO CHAIR TODAY. VSS AT THIS TIME; WILL CONTINUE TO MONITOR UNTIL REPORT IS HANDED OFF TO DAY SHIFT RN.
--- NOTE | 2019-02-12 08:41 | NUR ---
ASSUMED CARE AT 0700. REPORT FROM KAYLIN SANDOVAL. PT RESTING IN BED. INTERMITTANTLY CONFUSED BUT EASILY REDIRECTABLE. PT ON O2 AT 2L VIA NC. LUNGS CLEAR. INCREASED WORK OF BREATHING, TACHYPNEIC, LABORED RESP c EXERTION. ABD DISTENDED, SLIGHT MOTTLING NOTED. PT DENIES PAIN. SCLERA EDEMA NOTED. AMINODORONE CONTINUED AT 0.5 MG/MIN. INCREASED ECTOPY NOTED DURING WARP YARN SORTER AND THIS AM. JOSE ALBERTO, CARDIOLOGY, CONSULTED AND WILL SEE PT TODAY. NO NEW ORDERS FROM JOSE ALBERTO AT THIS TIME. DR DANIEL TO SEE PT, WILL DIURESIS TODAY AND CHANGE ANTIBIOTICS. PT ABLE TO HELP c REPOSITIONING, FEEDS SELF. APPETITE INCREASING. CALL LIGHT IN REACH. WILL CONTINUE TO MONITOR.
--- NOTE | 2019-02-12 09:52 | NUR ---
PT c INCREASED WORK OF BREATHING, TACHYPNIC, ACCESSORY MUSCLES USED. DR DIAZ CONSULTED. BIPAP ORDERED, RT NOTIFIED. BIPAP IN PLACE. PT TOLERATING WELL. HR INCREASED TO 100'S. WILL CONTINUE TO MONITOR SOB AND DIURESIS.
--- NOTE | 2019-02-12 10:41 | NUR ---
DR DIAZ AND DR ABRAMS AT BEDSIDE FOR ASSESSMENT. BIPAP REMOVED AT THIS TIME. SOB IMPROVED. PT SPEAKING IN FULL SENTANCES. PER DR DIAZ, BIPAP PLACED AT PT COMFORT, WILL ATTEMPT TO SIT IN RECLINER TODAY. EFRAIN IN TO VISIT c PT.
--- NOTE | 2019-02-12 11:30 | NUR ---
Call back - Pt given space to divulge thoughts and emotions re: . Exploration of spiritual pain. Pt requests sacrament of the sick with rn l and d. It appears pt's spiritual pain will not be alleviated until this is fulfilled. Father Arnol contacted and agrees to provide sacrament for the pt. Verbal prayer was extended to the pt with supplemental pastoral children's counselor. Pt verbalized gratitude.
[2019-02-12 12:28] LABS: Albumin, Blood 2.2 g/dL (3.4-5.0); Albumin/Globulin Ratio 0.8 (0.8-1.8); Bilirubin, Indirect 0.3 mg/dL (0.1-0.7); Bilirubin, Total 1.3 mg/dL (0.1-1.0); Globulin, Blood 2.9 g/dL (2.2-4.0); Total Protein, Blood 5.1 g/dL (6.4-8.2)
--- NOTE | 2019-02-12 12:40 | NUR ---
BEDBATH COMPLETE. ASSISTED PT TO DANGLE AT BEDSIDE. MAX ASSIST REQUIRED. PT UNABLE TO SUPPORT UPPER BODY WEIGHT. EXTREME SOB c EXERTION, REQUIRING BIPAP. ONCE BACK TO BED, LIFT USED TO MOVE PT TO RECLINER. REQUESTING BIPAP BE TAKEN OFF AT THIS TIME. PT TIRED c EXERTION. APPEARS TO FALL ASLEEP DURING CARE. CALL LIGHT IN REACH. VSS.
--- NOTE | 2019-02-12 17:58 | NUR ---
SHIFT SUMMARY PT REMAIN ORIENTED DURING SHIFT, AT TIMES CONFUSED, EASILY REDIRECTABLE AND COOPERATIVE c CARE. PT CONTINUES ON AMINODORONE DRIP AT 0.5 MG/MIN. SEEN BY CARDIOLOGY TODAY. ADDITIONAL PO CARDIAC MEDS ADDED. WILL F/U TOMORROW FOR AMINODORONE DRIP. RATE REMAINED BELOW 100 DURING SHIFT. CONTINUES TO DENY CP OR PRESSURE. SHORT RUNS OF 3-6 BEATS MD MYKE AWARE. PT NOTED TO BE SOB THIS AM, PLACED ON BIPAP INTERMITTANTLY DURING SHIFT. PT TOLERATES WELL. RESP RATE AND WORK OF BREATHING IMPROVED POST BIPAP USE. ON 2L NC c BREAKS. LUNGS CLEAR. INITIATED DIURESIS TODAY. 1400ML OF URINE OUT. PT c SMALL FULL LIQUID SNACKS THROUGHOUT DAY. PT UP TO BEDSIDE CHAIR c LIFT. VSS THROUGHOUT SHIFT. REPORT TO ONCOMING NURSE.
--- NOTE | 2019-02-12 23:46 | NUR ---
START OF SHIFT/PT FATIGUE: REPORT FROM GERI SANDOVAL. PT REPOSITIONED AT THAT TIME. VSS. PT SATS 100% AND O2 TITRATED FROM 2L TO 1L. PT LATER REQUESTED, "THE PILL" TO HELP HIM SLEEP. PT GIVEN SCHEDULED CELLCEPT AND AMBIEN. PT CONTINUES TO C/O NOT BEING ABLE TO FALL ASLEEP. PT REPOSITIONED TO STATED PREFERRED POSITION TO SLEEP. PT ALSO GIVEN CUP OF CHAMOMILE TEA. PT VERBALIZES GRATITUDE FOR ALL THE HELP FROM STAFF. PT ALSO TALKED ABOUT HIS FRUSTRATION WITH HIS ILLNESS AND TRYING TO CONTINUE TO CONTINUE ACTIVITY AT HOME IN ADDITION TO HELPING HIS . PT STATED WANTS TO BE ABLE TO GO BACK HOME. PT TRYING TO EXERCISE LEGS IN BED AND, "PLAYS GAMES" WITH HIS EMPTY CUPS ON SIDE TABLE. PT SIPS TEA AND WATER FROM CUPS AND REQUESTS PUDDING ON OCCASION. WILL CONTINUE TO MONITOR AND IF UPHOLSTERY ESTIMATOR CALLED WILL REQUEST A CHANGE IN SLEEP AID MEDICATION.
--- NOTE | 2019-02-13 01:08 | NUR ---
UPDATE: PT USING BED CONTROLS T/O NOC. PT NOT ABLE TO REMEMBER IF HE IS FALLING ASLEEP AND UNSURE OF WHAT IS KEEPING HIM AWAKE. PT OTHERWISE QUIET. VSS. USING PERSONAL LIGHT ON OCCASION. NOC ASSESSMENT UNCHANGED FROM PREVIOUS ASSESSMENT OTHER THAN PT CLOSING EYES DURING THEN FALLING ASLEEP PRIOR TO IV MED GIVEN. PT CURRENTLY CONTINUING TO SLEEP. VSS. WILL CONTINUE TO MONITOR.
--- NOTE | 2019-02-13 02:58 | NUR ---
PT SLEEPING SOUNDLY. VSS. SKIN PWD.
[2019-02-13 03:52] LABS: BASOPHILS ABSOLUTE AUTO 0.03 K/mm3 (0.00-0.23); BASOPHILS PERCENT AUTO 0 % (0-2); EOSINOPHILS PERCENT AUTO 0 % (0-6); Hematocrit 24.6 % (37.0-53.0); Hemoglobin 7.7 g/dL (13.5-17.5); IMMATURE GRAN PERCENT AUTO 6 % (0-1); LYMPHOCYTES ABSOLUTE AUTO 0.36 K/mm3 (0.84-5.20); LYMPHOCYTES PERCENT AUTO 2 % (21-46); MONOCYTES ABSOLUTE AUTO 0.56 K/mm3 (0.16-1.47); MONOCYTES PERCENT AUTO 4 % (4-13); Mean Corpuscular HGB 32.5 pg (26.0-34.0); Mean Corpuscular HGB Conc 31.3 g/dL (31.5-36.5); Mean Corpuscular Volume 104 fL (80-100); NEUTROPHILS PERCENT AUTO 89 % (41-73); NRBC ABSOLUTE 0.16 K/mm3 (0.00-0.02); Platelet Count 88 K/mm3 (150-400); RDW Coefficient Variation 17.4 % (11.7-14.2); RDW Standard Deviation 65.4 fL (35.1-46.3); Red Blood Cell Count 2.37 M/mm3 (4.30-5.90); White Blood Cell Count 16.15 K/mm3 (4.00-11.30)
[2019-02-13 04:07] LABS: Anion Gap 7 mmol/L (6-16); Blood Urea Nitrogen 54 mg/dL (8-24); Bun/Creatinine Ratio 38.8 (12.0-20.0); CO2, Blood 27 mmol/L (21-32); Calcium, Blood 7.4 mg/dL (8.5-10.1); Chloride, Blood 106 mmol/L (98-108); Creatinine, Blood 1.39 mg/dL (0.60-1.20); Glomerular Filtration Rate 53 (60-); Glucose, Blood 142 mg/dL (70-99); Phosphorus, Blood 2.6 mg/dL (2.5-4.9); Potassium, Blood 3.4 mmol/L (3.5-5.5); Sodium, Blood 140 mmol/L (136-145)
--- NOTE | 2019-02-13 07:30 | NUR ---
ASSUMED CARE / DR PUENTE: REPORT RECEIVED FROM JOEL Franz RN. ASSUMED CARE OF THIS PT AT APPROX 0700. ON ASSESSMENT, THE PT IS RESTING QUIETLY. HE STS BEING TIRED & THAT HE HAS NOT RESTED WELL IN NUMEROUS DAYS. PT CURRENTLY ON 2L NC W/ O2 SATS > 92%, LS ARE DIM T/O W/ EXPIRATORY WHEEZES NOTED. MONITOR SHOWS SR W/ BBB, PACs & PVCs, HR 60-70s. AMIO DRIP PER EMAR. BP STABLE. PT HAS NO GI COMPLAINTS, TEMP PATTEN PATENT/ DRAINING FOR STRICT I&O DURING DIURESIS. PROVIDER AT BEDSIDE TO SEE PT. 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 NO OTHER CHANGES AT THIS TIME. WILL CONTINUE TO MONITOR & UPDATE NEEDED.
--- NOTE | 2019-02-13 08:40 | NUR ---
DR DIAZ: PROVIDER AT BEDSIDE, STS HE WILL PLACE ORDERS TO RESUME SOME OF PT's CARDIAC MEDS. NO OTHER CHANGES AT THIS TIME. WILL CONTINUE TO MONITOR & UPDATE NEEDED.
--- NOTE | 2019-02-13 17:49 | NUR ---
DR ABRAMS: CALL TO PROVIDER TO REQUEST CLARIFICATION ON END TIME OF AMIODARONE DRIP. HE STS THAT HE SPOKE W/ DR PUENTE ABOUT ORDERING PO AMIO THIS AM. NOTIFIED PROVIDER THAT NO ORDERS HAD BEEN PLACED AT THIS TIME & HE REQUESTS THIS RN TO PLACE ORDERS FOR PO AMIO TO START TONIGHT. ORDERS PLACED. WILL CONTINUE TO MONITOR & UPDATE NEEDED.
--- NOTE | 2019-02-13 18:20 | NUR ---
SHIFT SUMMARY: NO ACUTE CHANGES SINCE PRIOR UPDATES. PT REMAINS A&O, PLEASANT & COOPERATIVE. CURRENTLY ON 1L NC W/ O2 SATS > 92%. MONITOR SHOWS SR W/ BBB & PACs W/ HR 70s. BP STABLE. BT x4, PT STS HE FEELS LIKE HE MAY NEED TO HAVE A BM THIS EVENING. HE HAS HAD NO DOCUMENTED BM SINCE ADMISSION & STS AT HOME HE GOES "5-6 DAYS" W/O HAVING A BM NORMALLY. HE IS TOLERATING PO INTAKE OF FULL LIQUIDS WELL W/ NO NAUSEA & IS HAVING NO DIFFICULTY SWALLOWING FOOD/ FLUIDS AT THIS TIME. WILFRIDO PATTEN PATENT/ DRAINING FOR STRICT I&O. SKIN OVERALL FRAGILE/ BRUISED T/O. WILL CONTINUE TO MONITOR & REPORT OFF TO ONCOMING RN.
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
--- NOTE | 2019-02-14 01:09 | NUR ---
PT TOLERATING CPAP BUT IN SHORT INCREMENTS. PT SPOKE WITH SPOUSE ON PHONE AND SINCE THEN HAS SEEMED MORE RELAXED. PT, AT TIMES, VERBALIZES CONCERNS AT HOME AND SOUNDS DEPRESSED BUT OTHERWISE COOPERTIVE AND APPRECIATIVE OF CARE. VSS.
[2019-02-14 05:00] LABS: BASOPHILS ABSOLUTE AUTO 0.04 K/mm3 (0.00-0.23); BASOPHILS PERCENT AUTO 0 % (0-2); EOSINOPHILS PERCENT AUTO 0 % (0-6); Hemoglobin 8.2 g/dL (13.5-17.5); IMMATURE GRAN ABSOLUTE AUTO 1.29 K/mm3 (0.00-0.10); IMMATURE GRAN PERCENT AUTO 7 % (0-1); LYMPHOCYTES ABSOLUTE AUTO 0.58 K/mm3 (0.84-5.20); LYMPHOCYTES PERCENT AUTO 3 % (21-46); MONOCYTES ABSOLUTE AUTO 0.82 K/mm3 (0.16-1.47); MONOCYTES PERCENT AUTO 4 % (4-13); Mean Corpuscular HGB 31.8 pg (26.0-34.0); Mean Corpuscular HGB Conc 30.4 g/dL (31.5-36.5); Mean Corpuscular Volume 105 fL (80-100); NEUTROPHILS ABSOLUTE AUTO 16.29 K/mm3 (1.96-9.15); NEUTROPHILS PERCENT AUTO 86 % (41-73); NRBC ABSOLUTE 0.28 K/mm3 (0.00-0.02); NRBC Auto 1.5 /100 WBC (0.0-0.2); Platelet Count 125 K/mm3 (150-400); RDW Coefficient Variation 17.4 % (11.7-14.2); Red Blood Cell Count 2.58 M/mm3 (4.30-5.90); White Blood Cell Count 19.02 K/mm3 (4.00-11.30)
[2019-02-14 05:06] LABS: Mean Platelet Volume 13.4 fL (9.1-12.4)
[2019-02-14 05:17] LABS: Albumin, Blood 2.2 g/dL (3.4-5.0); Albumin/Globulin Ratio 0.9 (0.8-1.8); Bilirubin, Direct 0.7 mg/dL (0.0-0.3); Bilirubin, Indirect 0.5 mg/dL (0.1-0.7); Bilirubin, Total 1.2 mg/dL (0.1-1.0); Bun/Creatinine Ratio 38.6 (12.0-20.0); Calcium, Blood 7.7 mg/dL (8.5-10.1); Creatinine, Blood 1.27 mg/dL (0.60-1.20); Globulin, Blood 2.5 g/dL (2.2-4.0); Phosphorus, Blood 2.8 mg/dL (2.5-4.9); Potassium, Blood 3.8 mmol/L (3.5-5.5); Total Protein, Blood 4.7 g/dL (6.4-8.2)
--- NOTE | 2019-02-14 06:05 | NUR ---
PT ONTO BEDPAN X2. NO BM. ONLY PASSING FLATUS.
--- NOTE | 2019-02-14 09:00 | NUR ---
ASSUMED CARE: REPORT RECEIVED FROM JOEL Franz RN. ASSUMED CARE OF THIS PT AT APPROX 0700. ON ASSESSMENT, THE PT IS A&O. HE STS FEELING VERY FATIGUED THIS AM & IT IS REPORTED THAT HE DID NOT SLEEP LAST NIGHT. LS ARE DIM IN BASES, PT ON RA W/ O2 SATS > 92%. MONITOR SHOWS SR W/ BBB & PACs, HR 70-80s. BP STABLE. NO GI/ COMPLAINTS, DIURESIS PER EMAR. Q2H TURNS STRONGLY ENCOURAGED FOR BLANCHABLE REDNESS TO COCCYX, PT OFTEN REFUSES TO BE REPOSITIONED ON EITHER SIDE. WILL CONTINUE TO MONITOR & UPDATE NEEDED.
--- NOTE | 2019-02-14 11:50 | NUR ---
DR SILVER: PROVIDER AT BEDSIDE TO SEE PT. THIS RN REQUESTS FOR PT/OT ORDERS TO BE PLACED PT IS QUITE DECONDITIONED & FEELING VERY WEAK AT THIS TIME. ORDERS PLACED. WILL CONTINUE TO MONITOR & UPDATE NEEDED.
--- NOTE | 2019-02-14 12:24 | NUR ---
DR CAMPUZANO: PROVIDER AT BEDSIDE TO SEE PT. STS HE WOULD LIKE THE PT's CENTRAL LINE TO R IJ TO BE REMOVED TODAY. ALSO STS HE WILL LIKELY SIGN OFF THE PT's CASE AT THIS TIME. WILL CONTINUE TO MONITOR & UPDATE NEEDED.
[2019-02-14 12:32] LABS: Percent Saturation 21.4 % (20.0-50.0)
--- NOTE | 2019-02-14 13:45 | NUR ---
CENTRAL LINE REMOVAL: CL TO R IJ HAS BEEN REMOVED. AREA CLEANSED W/ CHLORHEXIDINE & SUTURES REMOVED, MANUAL PRESSURE HELD BY THIS RN & AREA COVERED W/ CLEAR OCCLUSIVE TEGADERM DRESSING. VSS. WILL CONTINUE TO MONITOR & UPDATE NEEDED.
--- NOTE | 2019-02-14 18:04 | NUR ---
SHIFT SUMMARY: NO ACUTE CHANGES SINCE PRIOR UPDATES. PT REMAINS A&O, PLEASANT & COOPERATIVE. PT's IS CONCERNED THAT "HE DOESN'T SOUND LIKE HIMSELF." THE PT DOES EXIBIT SOME PARANOIA REGARDING HIS 's SON, TOM, R/T TOM BEING IN THEIR HOME W/O THE PT THERE. ALTHOUGH HE HAS GIVEN THIS RN PERMISSION TO SPEAK W/ TOM NEEDED. NOEMI, MANAGER OF COMPENSATION RN, UNDERSTANDS THIS DYNAMIC & IS WORKING W/ FAMILY. LS ARE DIM IN BASES, PT ON RA W/ O2 SATS > 92%. MONITOR SHOWS SR W/ BBB & PACs, HR 90-100s. BP STABLE. PT HAS NO GI COMPLAINTS, HAD SMALL/ SMEAR BM THIS SHIFT. TEMP SANDOR PATENT/ DRAINING FOR STRICT I&O. SKIN OVERALL FRAGILE. WILL CONTINUE TO MONITOR & REPORT OFF TO ONCOMING RN.
--- NOTE | 2019-02-15 03:27 | NUR ---
SHIFT SUMMARY PT. AGAIN DID NOT SLEEP THROUGH NIGHT, MAYBE AN HOUR IN TOTAL. ATTEMPTED MULTIPLE TIMES REDIRECTION, BREATHING EXERCISES, VISUALIZATION EXERCISES, ATTEMPTED TO PUT IN CONTACT WITH FAMILY, BUT UNABLE TO HEAR OVER PHONE DUE TO LACK OF HEARING AID. DID GIVE X1 AMBIEN @ 21:30, SEEMS INEFFECTIVE. SYMPTOMS EVIDENT, PT. TRYING TO EXIT BED, STATES HE WAS HEADING HOME AROUND 01:00, TRYING TO "FILE" KLEENEXES, BROKEN CUP NOTED IN GOWN POCKET. CONTACTED FAMILY MEMBER TOM YEPEZ, PER PT. REQUEST GAVE INSTRUCTIONS TO BRING GLASSES, R. SIDE HEARING AID, BATTERIES, AND SPA MANAGER. PER TOM'S STATEMENT, WILL "ATTEMPT TO BRING ITEMS TO HOSPITAL TOMORROW MORNING" VSS. NO C/O PAIN THRU NIGHT. WILL CONTINUE TO MONITOR.
[2019-02-15 04:07] LABS: BASOPHILS ABSOLUTE AUTO 0.05 K/mm3 (0.00-0.23); BASOPHILS PERCENT AUTO 0 % (0-2); EOSINOPHILS PERCENT AUTO 0 % (0-6); Hemoglobin 9.1 g/dL (13.5-17.5); IMMATURE GRAN ABSOLUTE AUTO 1.36 K/mm3 (0.00-0.10); IMMATURE GRAN PERCENT AUTO 7 % (0-1); LYMPHOCYTES ABSOLUTE AUTO 0.77 K/mm3 (0.84-5.20); LYMPHOCYTES PERCENT AUTO 4 % (21-46); MONOCYTES ABSOLUTE AUTO 1.04 K/mm3 (0.16-1.47); MONOCYTES PERCENT AUTO 5 % (4-13); Mean Corpuscular HGB 32.3 pg (26.0-34.0); Mean Corpuscular HGB Conc 30.3 g/dL (31.5-36.5); Mean Corpuscular Volume 106 fL (80-100); Mean Platelet Volume 13.5 fL (9.1-12.4); NEUTROPHILS ABSOLUTE AUTO 16.49 K/mm3 (1.96-9.15); NEUTROPHILS PERCENT AUTO 84 % (41-73); NRBC ABSOLUTE 0.18 K/mm3 (0.00-0.02); NRBC Auto 0.9 /100 WBC (0.0-0.2); Platelet Count 147 K/mm3 (150-400); RDW Coefficient Variation 17.9 % (11.7-14.2); RDW Standard Deviation 66.4 fL (35.1-46.3); Red Blood Cell Count 2.82 M/mm3 (4.30-5.90); White Blood Cell Count 19.71 K/mm3 (4.00-11.30)
[2019-02-15 04:24] LABS: Albumin, Blood 2.4 g/dL (3.4-5.0); Anion Gap 6 mmol/L (6-16); Blood Urea Nitrogen 47 mg/dL (8-24); Bun/Creatinine Ratio 38.5 (12.0-20.0); CO2, Blood 31 mmol/L (21-32); Calcium, Blood 8.1 mg/dL (8.5-10.1); Chloride, Blood 106 mmol/L (98-108); Creatinine, Blood 1.22 mg/dL (0.60-1.20); Glomerular Filtration Rate >60 (60-); Glucose, Blood 117 mg/dL (70-99); Phosphorus, Blood 3.5 mg/dL (2.5-4.9); Potassium, Blood 3.8 mmol/L (3.5-5.5); Sodium, Blood 143 mmol/L (136-145)
--- NOTE | 2019-02-15 08:30 | NUR ---
INITIAL ASSESSMENT PATIENT RESTING QUIETLY IN BED UPON ENTERING ROOM. PATIENT VERY [place]. PATIENT A AND O TO SELF, PERSON, PLACE, FAMILY, FOLLOWING DIRECTIONS. PATIENT CONFUSED AND FORGETFUL AT TIMES. PATIENT ANXIOUS AND IRRITABLE THIS AM. PATIENT WANTING TO GO HOME TO . PUPILS REACT SLUGGLISHLY TO LIGHT. L SCLERAL EDEMA NOTED. SCLERAL YELLOW. PATIENT VERY WEAK. PATIENT SATTING 90% AND GREATER ON RA. LUNGS CLEAR IN UPPER LOBES AND DIMINISHED IN LOWER LOBES. SHALLOW BREATHS NOTED. PATIENT HAS NONPRODUCTIVE COUGH. PATIENT IN ST WITH BBB, FREQUENT PACS AND OCCASIONAL PVCS. HR IN THE LOW 100S. SBP IN THE 120S. PATIENT HAS AICD. SCDS IN PLACE. ABDOMEN MILDLY DISTENDED, FIRM, WITH HYPOACTIVE BS. PATIENT'S HAD SMEAR DOCUMENTED YESTERDAY. PATIENT STATES THAT IT IS NORMAL FOR HIM TO HAVE 1 BM EVERY 5-6 DAYS. PATIENT ON FULL LIQUID DIET WITH NO STRAWS. POOR APPETITE. TEMP PROBE PATTEN IN PLACE- DRAINING GOOD AMOUNT OF YELLOW COLORED URINE. SKIN IS FRAGILE AND COOL. SCATTERED BRUISING NOTED. SKIN TEARS NOTED. PG FLUSHED AND SALINE LOCKED. BED LOW, CALL LIGHT IN REACH. WILL CONTINUE TO MONITOR PATIENT FREQUENTLY THROUGHOUT SHIFT.
--- NOTE | 2019-02-15 09:04 | NUR ---
PT HERE TO WORK WITH PATIENT.
--- NOTE | 2019-02-15 10:23 | NUR ---
DR. SILVER HERE TO SEE PATIENT. DOCTOR INFORMED THAT PATIENT IS UPSET THIS AM. STATES THAT HE WANTS TO GO HOME TO HIS . PATIENT STATES THAT HE WILL CONTINUE TO GET BETTER THERE. PATIENT INFORMED BY NURSE THAT IT IS DOCTORS DECISION AND THAT THEY WILL NOT WANT TO SEND HIM HOME UNTIL IT IS SAFE TO DO SO. PATIENT CONTINUED TO BE AGRUMENTATIVE AND DEMANDING THIS AM.
--- NOTE | 2019-02-15 11:44 | NUR ---
SPIRITUAL CARE IN TO SPEAK WITH PATIENT. PATIENT HAS NO COMPLAINTS OF PAIN OR DISCOMFORT AT THIS TIME. VITAL SIGNS STABLE. NO ACUTE CHANGES TO NOTE ON AT THIS TIME. WILL CONTINUE TO MONITOR.
--- NOTE | 2019-02-15 15:09 | NUR ---
SHIFT SUMMARY PATIENT REMAINED REMAINED CONFUSED AND FORGETFUL AT TIMES. PATIENT HAS BECOME LESS IRRITABLE SHIFT HAS PROGRESSED BUT STILL REMAINS ANXIOUS TO GET HOME TO HIS . PATIENT HAS REMAINED AFEBRILE. PATIENT HAS HAD NO COMPLAINTS OF PAIN THIS SHIFT. PATIENT HAS REMAINED SATTING 90% AND GREATER ON RA. PATIENT HAS REMAINED IN SR TO ST WITH BBB, FREQUENT PACS AND OCCASIONAL PVCS. PATIENT HAS AICD. HR AND BP HAVE BEEN STABLE. PATIENT DID NOT HAVE BM THIS SHIFT. PATIENT TOLERATING FULL LIQUID DIET WELL- POOR APPETITE. PATIENT HAS HAD ADEQUATE OUTPUT FROM PATTEN. NO CHANGE IN SKIN. PATIENT UP TO CHAIR THIS SHIFT. PT WORKED WITH PATIENT. PATIENT REMAINS VERY WEAK AND DECONDITIONED. NURSE, JENNIFER MARTIN, ASSUMING PATIENT CARE. REPORT GIVEN.
--- NOTE | 2019-02-15 15:14 | NUR ---
ASSUMED CARE REPORT FROM LORI RICHEY. PATIENT REPOSITIONED IN BED, JABARI CARE PERFORMED, BANDAID ON SKIN TEAR LEFT UPPER ARM. SOUP REWARMED AND PLACED IN CUP TO FACILITATE EATING IT. PATIENT IS VERY SLEETMUTE.
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
--- NOTE | 2019-02-15 19:03 | NUR ---
PATIENT ASKED TO KEEP CATHETER UNTIL MORNING BECAUSE HE JUST RECEIVED LASIX AND DOESN'T WANT TO GET UP DURING THE NIGHT.
--- NOTE | 2019-02-15 23:42 | NUR ---
ASSUMED CARE OF PATIENT AT [facility] FROM JENNIFER Chow RN. PATIENT ALERT AND ORIENTED X4; HARD OF HEARING. PATIENT SITTING IN CHAIR DURING BEDSIDE REPORT AND PATIENT KEPT STATING HE WANTED TO GO HOME; WORRIED ABOUT . PATIENT DENIES PAIN, NUMBNESS, TINGLING, DIZZINESS AND NAUSEA. PATIENT LATER REQUESTED TO BE TRANSFERRED BACK TO BED; DECONDITIONED AND WEAK; EDEMA. URINARY CATH IN PLACE; INCOTNINENT OF SMEAR. SR BBB W/ PAC'S ON HEART MONITOR; OXYGEN SATURAITON ABOVE 90% ON ROOM AIR. PG S/L TO MAX. PATIENT CURRENTLY RESTING IN BED; CALL LIGHT IN REACH; BED IN LOWEST POSISTION; BED ALARM ON; WILL CONTINUE TO MONITOR AND ASSESS UNTIL END OF SHIFT.
[2019-02-16 04:14] LABS: BASOPHILS ABSOLUTE AUTO 0.02 K/mm3 (0.00-0.23); BASOPHILS PERCENT AUTO 0 % (0-2); EOSINOPHILS ABSOLUTE AUTO 0.01 K/mm3 (0.00-0.68); EOSINOPHILS PERCENT AUTO 0 % (0-6); Hematocrit 30.6 % (37.0-53.0); Hemoglobin 9.1 g/dL (13.5-17.5); IMMATURE GRAN ABSOLUTE AUTO 0.92 K/mm3 (0.00-0.10); IMMATURE GRAN PERCENT AUTO 5 % (0-1); LYMPHOCYTES ABSOLUTE AUTO 0.92 K/mm3 (0.84-5.20); LYMPHOCYTES PERCENT AUTO 5 % (21-46); MONOCYTES ABSOLUTE AUTO 0.75 K/mm3 (0.16-1.47); MONOCYTES PERCENT AUTO 4 % (4-13); Mean Corpuscular HGB Conc 29.7 g/dL (31.5-36.5); Mean Corpuscular Volume 108 fL (80-100); Mean Platelet Volume 12.7 fL (9.1-12.4); NEUTROPHILS PERCENT AUTO 85 % (41-73); NRBC ABSOLUTE 0.08 K/mm3 (0.00-0.02); NRBC Auto 0.5 /100 WBC (0.0-0.2); Platelet Count 147 K/mm3 (150-400); RDW Coefficient Variation 18.9 % (11.7-14.2); RDW Standard Deviation 68.8 fL (35.1-46.3); Red Blood Cell Count 2.84 M/mm3 (4.30-5.90); White Blood Cell Count 17.52 K/mm3 (4.00-11.30)
[2019-02-16 04:29] LABS: Albumin, Blood 2.5 g/dL (3.4-5.0); Anion Gap 5 mmol/L (6-16); Blood Urea Nitrogen 42 mg/dL (8-24); Bun/Creatinine Ratio 36.5 (12.0-20.0); CO2, Blood 34 mmol/L (21-32); Calcium, Blood 8.1 mg/dL (8.5-10.1); Chloride, Blood 104 mmol/L (98-108); Creatinine, Blood 1.15 mg/dL (0.60-1.20); Glomerular Filtration Rate >60 (60-); Glucose, Blood 97 mg/dL (70-99); Phosphorus, Blood 3.2 mg/dL (2.5-4.9); Potassium, Blood 4.1 mmol/L (3.5-5.5); Sodium, Blood 143 mmol/L (136-145)
--- NOTE | 2019-02-16 05:56 | NUR ---
PATIENT SLEPT ABOUT EIGHT HOURS LAST NIGHT. PATIENT CONFUSED OFF AND ON THROUGHOUT THE NIGHT. VSS. NO OTHER ACUTE CHANGES TO REPORT. WILL CONTINUE TO MONITOR AND ASSESS UNTIL END OF SHIFT.
--- NOTE | 2019-02-16 07:42 | NUR ---
NURSING ICU DAYSHIFT: Assumed care of pt at approx 0700. A/O, reported forgetful at times, pleasant and cooperative w/care. TLINGIT & HAIDA and speech is mumbled at times though able to communicate needs w/o difficulty. Appears sad about current medical status and inability to care for w/dementia at home, appears anxious for discharge. Denies any pain/discomfort at rest. Skin is fragile w/scattered bruising, redness to pressure areas, boby area red. Cardiac monitoring in place, NSR w/BBB and PAC's, no c/o CP/pressure, BP stable, trace BLE edema. L/S fairly cta t/o w/dim bases, denies dyspnea, O2 sat 98% on RA, c/o cough producing cream colored sputum. Abd mildly distended/firm, pt states this is normal, BT+, c/o intermittent nausea though appetite is intact, incontinent of urine, attends in place. PG present in LUE, s/l. No s/s of acute distress at this time. Discussed w/pt what needs will be required at home, pt states he will be able to care for self and spouse though safety concerns remain present. Will discuss therapy plan w/PT/OT today. Pt denies any current needs or questions, call light in reach. Awaiting rounding from PMD, cont to monitor for any changes.
--- NOTE | 2019-02-16 07:42 | NUR ---
NURSING PCU DAYSHIFT: Assumed care of pt at approx 0700. A/O, reported forgetful at times, pleasant and cooperative w/care. AUGUSTINE and speech is mumbled at times though able to communicate needs w/o difficulty. Appears sad about current medical status and inability to care for w/dementia at home, appears anxious for discharge. Denies any pain/discomfort at rest. Skin is fragile w/scattered bruising, redness to pressure areas, boby area red. Cardiac monitoring in place, NSR w/BBB and PAC's, no c/o CP/pressure, BP stable, trace BLE edema. L/S fairly cta t/o w/dim bases, denies dyspnea, O2 sat 98% on RA, c/o cough producing cream colored sputum. Abd mildly distended/firm, pt states this is normal, BT+, c/o intermittent nausea though appetite is intact, incontinent of urine, attends in place. PG present in LUE, s/l. No s/s of acute distress at this time. Discussed w/pt what needs will be required at home, pt states he will be able to care for self and spouse though safety concerns remain present. Will discuss therapy plan w/PT/OT today. Pt denies any current needs or questions, call light in reach. Awaiting rounding from PMD, cont to monitor for any changes.
--- NOTE | 2019-02-16 13:15 | NUR ---
Pt. is sitting up in bed and the therapist in the room attending the pt. with his needs offered some prayers.
--- NOTE | 2019-02-16 17:50 | NUR ---
NURSING ICU DAYSHIFT SUMMARY: No significant changes noted t/o the shift. VS remained stable, respiratory and cardiac status unchanged. Worked w/PT/OT, tolerated fairly well with the use of gait belt and FWW though continues to experience weakness and requires assistance w/transfers and ADL's. Spent majority of the afternoon OOB in a chair. Remains cooperative though continues to be forgetful at times. Spoke with s/o over the phone. Update provided, s/o verbalized understanding of discharge plan and with SNF placement as pt weakness is too great at this time. S/O requested [facility] for placement if possible d/t good personal experience at the facility in the past, wild animal caretaker notified of request. Pt currently sitting up in chair working on PT/OT exercises demonstrated earlier in shift. Appears in good spirits though continues to state wish for discharge home. Continues to c/o "feeling full" and "hiccups" along w/belching after PO intake, PMD notified. Denies any other current questions/needs, call light in reach, cont to monitor until rpt is given to NOC RN.
--- NOTE | 2019-02-16 23:11 | NUR ---
ASSUMED PT CARE FROM LORI HARRY PT SITTING UP IN BED ALERT AND ORIENTED X4; ABLE TO MAKE HIS NEEDS KNOWN. NOTED TO BE FORGETFUL AND CONFUSED AT TIMES. NO FAMILY AT BEDSIDE. PT IS CURRENTLY SALINE LOCKED. MEDS GIVEN CRUSHED IN APPLESAUCE; PT TOLERATED WELL. PT NOTED TO BE INCONTINENT OF URINE; NEEDS FREQUENT CHECKS AND ATTEND MANAGEMENT. DENIES PAIN. CALL LIGHT LEFT WITHIN REACH.
--- NOTE | 2019-02-16 23:31 | NUR ---
REPORT GIVEN TO LORI JACOBS
--- NOTE | 2019-02-17 00:35 | NUR ---
0015 PT TO ROOM 337 PER BED FROM ICU WITH ALL BELONGINGS.
--- NOTE | 2019-02-17 03:05 | NUR ---
PATIENT TRANSFERRED FROM [facility] DUE TO FREQUENT BED ALARMS SOUNDING OFF HE ATTEMPTS TO GET OUT OF BED, AND IS A FALL RISK. HE IS CONFUSED, ORIENTED ONLY TO SELF. PATIENT LAYING IN BED ON ARRIVAL. STATES NAME BUT DOES NOT KNOW WHERE HE IS. ENCOURAGED TO USE CALL LIGHT, BED ALARM IS ON, BED IN LOWER POSITION.
[2019-02-17 05:13] LABS: BASOPHILS ABSOLUTE AUTO 0.03 K/mm3 (0.00-0.23); BASOPHILS PERCENT AUTO 0 % (0-2); EOSINOPHILS ABSOLUTE AUTO 0.01 K/mm3 (0.00-0.68); EOSINOPHILS PERCENT AUTO 0 % (0-6); Hematocrit 31.4 % (37.0-53.0); Hemoglobin 9.3 g/dL (13.5-17.5); IMMATURE GRAN PERCENT AUTO 5 % (0-1); LYMPHOCYTES PERCENT AUTO 5 % (21-46); MONOCYTES ABSOLUTE AUTO 0.53 K/mm3 (0.16-1.47); MONOCYTES PERCENT AUTO 4 % (4-13); Mean Corpuscular HGB 32.4 pg (26.0-34.0); Mean Corpuscular HGB Conc 29.6 g/dL (31.5-36.5); Mean Corpuscular Volume 109 fL (80-100); Mean Platelet Volume 12.8 fL (9.1-12.4); NEUTROPHILS ABSOLUTE AUTO 11.04 K/mm3 (1.96-9.15); NEUTROPHILS PERCENT AUTO 86 % (41-73); NRBC ABSOLUTE 0.03 K/mm3 (0.00-0.02); NRBC Auto 0.2 /100 WBC (0.0-0.2); Platelet Count 137 K/mm3 (150-400); RDW Coefficient Variation 19.1 % (11.7-14.2); RDW Standard Deviation 72.9 fL (35.1-46.3); Red Blood Cell Count 2.87 M/mm3 (4.30-5.90); White Blood Cell Count 12.91 K/mm3 (4.00-11.30)
[2019-02-17 05:36] LABS: Anion Gap 6 mmol/L (6-16); Blood Urea Nitrogen 35 mg/dL (8-24); Bun/Creatinine Ratio 33.7 (12.0-20.0); CO2, Blood 33 mmol/L (21-32); Calcium, Blood 8.2 mg/dL (8.5-10.1); Chloride, Blood 105 mmol/L (98-108); Creatinine, Blood 1.04 mg/dL (0.60-1.20); Glomerular Filtration Rate >60 (60-); Glucose, Blood 102 mg/dL (70-99); Potassium, Blood 4.1 mmol/L (3.5-5.5); Sodium, Blood 144 mmol/L (136-145)
--- NOTE | 2019-02-17 07:22 | NUR ---
CONFIRMED VIDEO MONITORING CALLED [employer] MANAGER BRIANNA TO CONFIRM VIDEO MONITORING
--- NOTE | 2019-02-17 10:49 | NUR ---
Met pt. in bed relaxed and seems to be doing much better offered prayers and spiritual support.
--- NOTE | 2019-02-17 16:30 | NUR ---
SHIFT SUMMARY PT IS 1 PERSON ASSIST W/FWW AND GAIT BELT (USE VERBAL CUES) TODAY. PLAN IS FOR DC TO [facility] TOMORROW. [facility], AND [facility]. IV ANTIBIOTICS HAVE BEEN ADMINISTERED ORDERED. PICC LINE FLUSHES BUT DOES NOT DRAW. HE IS [place]. HE SEEMS TO BE IN A NEGATIVE MOOD TODAY - HE STATED HE'S TIRED OF BEING SICK. WHEN HE REFUSES TO MOVE, WE HAVE TO USE POSITIVE REINFORCING LANGUAGE TO CONVINCE HIM THAT HE IS - IN FACT - ABLE TO MOVE.
--- NOTE | 2019-02-18 02:11 | NUR ---
PATIENT'S SUNNI CALLED FOR AN UPDATE. UPDATED REQUESTED.
--- NOTE | 2019-02-18 04:14 | NUR ---
SHIFT SUMMARY PATIENT HAD AN UNEVENTFUL NIGHT; SPENT SOME TIME SITTING UPRIGHT IN BEDSIDE CHAIR AND THE REST OF THE NIGHT ASLEEP IN BED. DENIES PAIN AND DISCOMFORT. VITALS STABLE. NO ACUTE CHANGES NOTED ON THIS SHIFT. WILL CONTINUE TO MONITOR AND PROVIDE CARE NEEDED.
[2019-02-18 05:45] LABS: BASOPHILS ABSOLUTE AUTO 0.02 K/mm3 (0.00-0.23); BASOPHILS PERCENT AUTO 0 % (0-2); EOSINOPHILS ABSOLUTE AUTO 0.03 K/mm3 (0.00-0.68); EOSINOPHILS PERCENT AUTO 0 % (0-6); Hematocrit 31.1 % (37.0-53.0); Hemoglobin 9.3 g/dL (13.5-17.5); IMMATURE GRAN ABSOLUTE AUTO 0.22 K/mm3 (0.00-0.10); IMMATURE GRAN PERCENT AUTO 2 % (0-1); LYMPHOCYTES ABSOLUTE AUTO 0.61 K/mm3 (0.84-5.20); LYMPHOCYTES PERCENT AUTO 6 % (21-46); MONOCYTES ABSOLUTE AUTO 0.49 K/mm3 (0.16-1.47); MONOCYTES PERCENT AUTO 5 % (4-13); Mean Corpuscular HGB 32.1 pg (26.0-34.0); Mean Corpuscular HGB Conc 29.9 g/dL (31.5-36.5); Mean Corpuscular Volume 107 fL (80-100); Mean Platelet Volume 12.2 fL (9.1-12.4); NEUTROPHILS ABSOLUTE AUTO 9.34 K/mm3 (1.96-9.15); NEUTROPHILS PERCENT AUTO 87 % (41-73); Platelet Count 120 K/mm3 (150-400); RDW Coefficient Variation 18.6 % (11.7-14.2); RDW Standard Deviation 69.1 fL (35.1-46.3); White Blood Cell Count 10.71 K/mm3 (4.00-11.30)
[2019-02-18 06:06] LABS: Anion Gap 3 mmol/L (6-16); Blood Urea Nitrogen 29 mg/dL (8-24); Bun/Creatinine Ratio 31.2 (12.0-20.0); CO2, Blood 38 mmol/L (21-32); Calcium, Blood 8.1 mg/dL (8.5-10.1); Chloride, Blood 101 mmol/L (98-108); Creatinine, Blood 0.93 mg/dL (0.60-1.20); Glomerular Filtration Rate >60 (60-); Glucose, Blood 83 mg/dL (70-99); Potassium, Blood 3.8 mmol/L (3.5-5.5); Sodium, Blood 142 mmol/L (136-145)
--- NOTE | 2019-02-18 17:16 | NUR ---
PT HAS BEEN WITHDRAWN DURING THIS SHIFT. PT ALERT WHEN AWAKE, BUT DROWSY THROUGHOUT THE SHIFT. PT UP IN CHAIR FOR BREAKFAST THEN BACK TO BED FOR THE REST OF THE SHIFT. PT RESTING IN BED WITH CALL LIGHT IN REACH. WILL CONTINUE TO MONITOR.
--- NOTE | 2019-02-18 18:45 | NUR ---
PT NOTED TO HAVE INCREASED BLE EDEMA THIS EVENING. PT REFUSED HIS ORAL FUROSEMIDE DUE TO DIFFICULTY SWOLLOWING. DR CHAMPIONTRATE NOTIFIED. ORDER CHANGED TO IV LASIX.
[2019-02-19 05:02] LABS: BASOPHILS ABSOLUTE AUTO 0.01 K/mm3 (0.00-0.23); BASOPHILS PERCENT AUTO 0 % (0-2); EOSINOPHILS ABSOLUTE AUTO 0.02 K/mm3 (0.00-0.68); EOSINOPHILS PERCENT AUTO 0 % (0-6); Hematocrit 32.1 % (37.0-53.0); Hemoglobin 9.6 g/dL (13.5-17.5); IMMATURE GRAN ABSOLUTE AUTO 0.14 K/mm3 (0.00-0.10); IMMATURE GRAN PERCENT AUTO 2 % (0-1); LYMPHOCYTES ABSOLUTE AUTO 0.44 K/mm3 (0.84-5.20); LYMPHOCYTES PERCENT AUTO 5 % (21-46); MONOCYTES ABSOLUTE AUTO 0.42 K/mm3 (0.16-1.47); MONOCYTES PERCENT AUTO 5 % (4-13); Mean Corpuscular HGB Conc 29.9 g/dL (31.5-36.5); Mean Corpuscular Volume 107 fL (80-100); Mean Platelet Volume 11.7 fL (9.1-12.4); NEUTROPHILS PERCENT AUTO 89 % (41-73); Platelet Count 119 K/mm3 (150-400); RDW Coefficient Variation 18.1 % (11.7-14.2); RDW Standard Deviation 68.2 fL (35.1-46.3); White Blood Cell Count 9.13 K/mm3 (4.00-11.30)
[2019-02-19 05:37] LABS: Anion Gap 5 mmol/L (6-16); Blood Urea Nitrogen 25 mg/dL (8-24); Bun/Creatinine Ratio 24.5 (12.0-20.0); CO2, Blood 35 mmol/L (21-32); Chloride, Blood 102 mmol/L (98-108); Creatinine, Blood 1.02 mg/dL (0.60-1.20); Glomerular Filtration Rate >60 (60-); Glucose, Blood 88 mg/dL (70-99); Potassium, Blood 4.1 mmol/L (3.5-5.5); Sodium, Blood 142 mmol/L (136-145)
--- NOTE | 2019-02-19 06:17 | NUR ---
SHIFT SUMMARY PATIENT REFUSED MEDICATIONS FOR THIS RN DURING 2100 MED PASS STATING THAT IT DIDNT MATTER IF HE TOOK THEM OR NOT. PATIENT APPEARED WITHDRAWN AND DEPRESSED. PATEINT INCONTINENT OF BLADDER AND REQUIRED A LINEN CHANGE. PATIENT CLEANED OFF AND LINENS CHANGED. AFTERWARD PATIENT APPEARED LESS WITHDRAWN. PATIENT B/P ON THE LOWER SIDE OVERNIGHT AT 98/54. NURSE RECHECKED AND CONFIRMED. BLE EDEMA APPEARS TO HAVE GONE DOWN SFROM 3+ TO 2+. PATIENT STATED THAT HE HAD BEEN DEPRESSED THAT IT WAS HIS BIRTHDAY BUT THAT HE HAD DECIDED TO GET OVER IT. PATIENT ABLE TO TURN SELF IN BED WITH MINIMAL ASSIST AND VERBAL CUES. WILL CONTINUE TO MONITOR AND REPORT TO ONCOMING SHIFT.
--- NOTE | 2019-02-19 15:05 | NUR ---
BROTHER AND SISTER IN LAW FROM [place] CALLED TO CHECK ON PT. SISTER IN LAW REPORTS PT HAS ALZHEIMERS AND LAST THEY HEARD HER SONS WERE WORKING ON PLACEMENT FOR HER. SHE REPORTS THAT ZANDRA WAS NOT TAKING VERY GOOD CARE OF HIMSELF PRIOR TO COMING TO THE HOSPITAL. [facility] AT THIS [facility]. SON IN LAW TOM ALSO CALLED AND MESSAGE LEFT TO BRING IN [place]ALLET, PHONE AND DENTURES PER HIS REQUEST.
--- NOTE | 2019-02-19 15:18 | NUR ---
PT SBP THIS AM OF 102, PER DR RODNEY HOLD CARDIAC MEDS FOR SBP LESS THAN 90, MEDS GIVEN. PT WAS SLIGHTLY DIZZY UPON STANDING. BP THIS AFTERNOON OF 77/53, DR RODNEY NOTIFIED. 500ML BOLUS ORDERED AND CARDIAC MEDS PARAMETERS CHANGED TO HOLD FOR SBP LESS THAN 110.
--- NOTE | 2019-02-19 17:37 | NUR ---
SHIFT SUMMARY- PT A/OX3, 1 ASSIST UP TO CHAIR. PT DENIES ANY PAIN T/O THE DAY. PT ON RA, LS COARSE WITH OCC PRODUCTIVE COUGH. 3+ BLE EDEMA NOTED. PT INCONT AT TIMES, NEEDS ASSISTANCE WITH URINAL. BRUISING T/O. PT HYPOTENSIVE AT 77/53 THIS AFTERNOON, 500ML BOLUS GIVEN. PT REPORTS DIZZINESS UPON STANDING. PT WITH VERY POOR APETITE, REPORTS THROAT IS SORE. MESSAGE LEFT WITH SON IN LAW TO BRING IN TEETH FOR PT TO EAT. PT DEPRESSED, SPOKE WITH PT IN LENGTH ABOUT FEAR OF THIS HAPPENING AGAIN AND NOT SEEING HIS AND CATS AGAIN. PT [facility]GE [facility]. NO OTHER ACUTE CHANGES THIS SHIFT.
--- NOTE | 2019-02-19 22:45 | NUR ---
SPOKE TO ANALYST MARKET INTELLIGENCE PHYSICIAN ABOUT PATIENTS B/P OF 78/37. PHYSICIAN ORDERED FOR 500 ML BOLUS TO BE GIVEN OVER 4 HOURS. ORDERS PUT IN AND FLUIDS STARTED AT 125ML/HR. LUNG SOUNDS COARSE WITH EXP. WHEEZE IN BASES. WILL CONTINUE TO MONITOR B/P AND LUNG SOUNDS.
--- NOTE | 2019-02-19 22:47 | NUR ---
Patient wanted his dentures, he stated they were in personal belonging bags. I assisted him and we found them. Patient also found a wad of chin rubberbanded together, he didn't want to put it back. He has the wad of chin with him, somewhere in his bed. I am concerned he may loose it. I am cleaning his dentures as the solution in the denture cup with thick. Pt also wants Fixadent for his dentures and does Not like the hospital denture paste. Patient is sitting bedside.
--- NOTE | 2019-02-20 05:31 | NUR ---
SHIFT SUMMARY PATIENT APPEARS MORE LUCID AND UPBEAT THAN PREVIOUS NIGHT. PATIENT STATES HE JUST NEEDS TO DEAL WITH IT AND IS TIRED OF BEING SO WEAK. HELD ALL CARDIAC MEDS D/T LOW BLOOD PRESSURE. SPOKE TO DIRECTOR OF HEALTH CARE MARKETING PHYSICIAN AND A 500ML BOLUS GIVEN OVER 4 HOURS WAS ORDERED. PATIENT BLOOD PRESSURE RESPONDED WELL TO BOLUS. PATIENT SOUNDS SLIGHTLY CONGESTED AFTER BOLUS BUT SWELLING OF EXTREMITIES UNCHANGED. PATIENT UP 1-2 PERSON ASSIST TO CHAIR. INCONTINENT OF BLADDER. LINENS CHANGED. WILL CONTINUE TO MONITOR AND REPORT TO ONCOMING SHIFT.
--- NOTE | 2019-02-20 08:10 | NUR ---
PT PLEASANT COOP A/O. DENIES PIAN. H/R IRREG, NO MURMER NOTED. NO TELE. HAS PACER/DEFIB LOCATED ON LEFT OUTER TRUNK. MIDLINE. LUNGS CLEAR, RESP EASY UNLABORED. ON R.A. BT X4 STATES LAST BM 3 DAYS, STATES BUT NOT EATING MUCH. VOIDS PER BSC. 1 ASST. EDEMA LEGS +3, ARMS NONPITTING.
--- NOTE | 2019-02-20 12:11 | NUR ---
SPOKE TO DR RODNEY RE BP MEDS. OKAY GIVE AMIODORONE, METOPROLOL LASIX HOLD LISINOPRIL. D/C CELLCEPT
--- NOTE | 2019-02-20 15:14 | NUR ---
PT C/O SMALL DRIBBLING WITH NO GOOD URINE OUTPUT. FEELS LIKE HAS TO URINATE. BLADDER SCAN DISCOVERS 936 FLUID AFTER UR[address]ATION. [address] DR RODNEY. PATTEN CATH PLACED FOR RETENTION. STERILE TECHNIQUE MAINTINED DURING INSERTION. 900 FLUID OUT AT INSERTION. PT DENIES PAIN OR DISCOMFORT DURING AND AFTER INSERTION. BED IN LOW POSITION, CALL LITE IN REACH, CALLS APPRP
--- NOTE | 2019-02-20 17:44 | NUR ---
PT PLEASANT TODAY. PLACED PATTEN CATH FOR >900 IN BLADDER. PT FEELS FEET IMPROVING SOME. STATES FEELS SLOW IMPROVEMENT. FEET UP ON PILLOWS THIS AFT WITH PBC PLACED. BED IN LOW POSITION, CALL LITE IN REACH, CALLS APPROP
--- NOTE | 2019-02-21 03:56 | NUR ---
SHIFT SUMMARY AOX4. LS COARSE IN BASES. SOB W/ACTIVITY. NO C/O PAIN OR NAUSEA. COUGHING UP MODERATE AMOUNT OF THICK MUÑOZ SPUTUM. MEPILEX TO ELBOWS, COCCYX, AND HEELS. PT REFUSED TO WEAR HEEL BOOTS AT NIGHT, TOO HOT. 1 ASSIST TO BSC. 2+ EDEMA IN BLE AND CASH CLERK IN BUE. POWERGLIDE IN MAX IS SL. SCDS OFF DURING THE NIGHT B/C PT COULDN'T SLEEP AND THEY WERE TOO HOT. PATTEN HAS CLEAR YELLOW OUTPUT. PILLS WHOLE IN APPLESAUCE. BP MEDICATIONS HELD. BP 143/116, RECHECKED AND BP WAS 101/47 SO BP MEDICATIONS WERE OUTSIDE VS PARAMETER. PT AND OT. [facility] OR HOME WITH HOME HEALTH WHEN READY, UNSURE OF WHEN THAT WILL BE.
[2019-02-21 05:56] LABS: BASOPHILS ABSOLUTE AUTO 0.02 K/mm3 (0.00-0.23); BASOPHILS PERCENT AUTO 0 % (0-2); EOSINOPHILS ABSOLUTE AUTO 0.01 K/mm3 (0.00-0.68); EOSINOPHILS PERCENT AUTO 0 % (0-6); Hemoglobin 8.9 g/dL (13.5-17.5); IMMATURE GRAN ABSOLUTE AUTO 0.09 K/mm3 (0.00-0.10); IMMATURE GRAN PERCENT AUTO 1 % (0-1); LYMPHOCYTES PERCENT AUTO 6 % (21-46); MONOCYTES ABSOLUTE AUTO 0.76 K/mm3 (0.16-1.47); MONOCYTES PERCENT AUTO 7 % (4-13); Mean Corpuscular HGB 31.9 pg (26.0-34.0); Mean Corpuscular HGB Conc 29.7 g/dL (31.5-36.5); Mean Corpuscular Volume 108 fL (80-100); Mean Platelet Volume 11.6 fL (9.1-12.4); NEUTROPHILS ABSOLUTE AUTO 9.08 K/mm3 (1.96-9.15); NEUTROPHILS PERCENT AUTO 86 % (41-73); Platelet Count 132 K/mm3 (150-400); RDW Coefficient Variation 17.5 % (11.7-14.2); RDW Standard Deviation 66.5 fL (35.1-46.3); Red Blood Cell Count 2.79 M/mm3 (4.30-5.90); White Blood Cell Count 10.56 K/mm3 (4.00-11.30)
--- NOTE | 2019-02-21 08:00 | NUR ---
PT PLEASANT COOP A/O. DENIES PAIN. LEGS STILL BLE +3, ARMS NON PITTING. H/R IRREG, NO MURMER NOTED. AICD LOCATED LEFT RIB AREA. NO TELE. LUNGS CLEAR UPPER, COARSE WHEEZY LOWER. MUÑOZ SPUTUM MODERATE WITH COUGH. ON R.A. RESP EASY, UNLABORED. BT X4 ALST BM 2-3 DAYS PER PT. ABD HERNIA PER PT. VOIDS PATTEN CATH. YELLOW FLUID DRAINING. FEET ON PILLOWS BED IN LOW OPSITION, CALL LITE IN REACH, CALLS APPROP
--- NOTE | 2019-02-21 09:32 | NUR ---
PER CALL TO DR RODNEY RE B/P, HOLD CARDIAC MEDS, GIVE LASIX
--- NOTE | 2019-02-21 12:12 | NUR ---
IN TO SEE PT LAST HOUR. REQUESTED RECHECK B/P AT NOON. GIVE AMIODORONE IF BP > 95.
--- NOTE | 2019-02-21 12:44 | NUR ---
DR RODNEY OKAYED SOFT BITE CARDIAC DIET
--- NOTE | 2019-02-21 14:29 | NUR ---
1400 IN CAME TO ROOM. JUST STRUGGLING BREATHING, CALLED RT. STATES PRESENTS STRIDOR. LIKELY ASPIRATED SOME ON LIQUID. PT DID HAVE BREATHING TX. O2 AVAIL IF NEED. CALLED DR RODNEY, PT ANX. ORDERS GIVEN FOR ATIVAN. VSS. O2 > 94% SAT WITH PT TO GET TO FOCUS ON RESP AND RELAXATION.
--- NOTE | 2019-02-21 15:53 | NUR ---
PT IN BED RESTING, EYES CLOSED, DID NOT AWAKEN. RESP EASY, UNLABORED AT THIS TIME .
--- NOTE | 2019-02-21 16:37 | NUR ---
Mr. Ozuna was working very hard to breathe and RT had been diligently working to provide relief. His is currently in the ED and this appears to be adding to his anxiety. I provided prayer, but there was too much else going on in the room for much more than this. Yash is Confucianist and has made it clear to me in the past that he prefers Father Arnol. Informed him that Father will be here tomorrow.
--- NOTE | 2019-02-21 18:39 | NUR ---
PT PLEASANT TODAY. DID HAVE RESP ISSUES TODAY. MOSTLY APPEARS ANX OVER BEING ADMITTED. TRYING TO GET HER TO SAME FLOOR, NOW IN #[id number]. UNSUCCESSFUL SO FAR. PT BREATHING BETTER LEILANI AFTER SEEING THIS LIBAN. NO OTHER CONCERNS AT THIS TIME. BED IN LOW POSITION, CALL LITE IN [facility], CALLS APPROP
--- NOTE | 2019-02-22 04:39 | NUR ---
SHIFT SUMMARY AOX4. LS COARSE IN BASES. SOB W/ACTIVITY. NO C/O NAUSEA OR PAIN. NO PRNS GIVEN. PT STILL COUGHING UP MUÑOZ SPUTUM. MEPILEX TO ELBOWS, HEELS, AND COCCYX. WEARS HEEL BOOTS ON AND OFF. 1 ASSIST TO BSC. 3+ EDEMA IN BLE, PARALEGAL LEGAL SECRETARY IN UPPER EXT. PG IN MAX IS SL AND DOESN'T DRAW BLOOD. PATTEN HAS CLEAR YELLOW OUTPUT. CAME TO VISIT FROM HER ROOM LAST NIGHT, CALMED PT DOWN. PILLS WITH APPLESAUCE. BP 103/65 SO BP MEDS HELD D/T BEING OUTSIDE VS PARAMETER. [facility] WITH [facility] HEALTH. UNSURE OF WHEN THAT WILL BE.
[2019-02-22] MEDS ORDERED: FURO20 PO (11:13)
[2019-02-22] MEDS ORDERED: METO25 PO (11:15)
[2019-02-22] MEDS ORDERED: ACET325 PO (11:17)
[2019-02-22] MEDS ORDERED: Amiodarone HCl200 MG PO (11:18)
[2019-02-22] MEDS ORDERED: BENMENLOZ PO (11:18)
[2019-02-22] MEDS ORDERED: LORA.5 PO (11:19)
[2019-02-22] MEDS ORDERED: CEFP200 PO (11:19)
[2019-02-22] MEDS ORDERED: ONDA4ODT SL (11:20)
[2019-02-22] MEDS ORDERED: POTA10T PO (11:20)
[2019-02-22] MEDS ORDERED: TRAZ50 PO (11:22)
[2019-02-22] MEDS ORDERED: Florastor250 MG PO (11:22)
[2019-02-22] MEDS ORDERED: PRED20 (11:22)
--- NOTE | 2019-02-22 13:26 | NUR ---
PT TRANSFERED TO [facility] AT 1200 TODAY. PT WAS TRANSPORTED BY STRETCHER. PT AOX3 AND COOPERATIVE OF CARE. PT WAS UP IN CHAIR FOR BREAKFAST AND READY TO GO TO [facility]. PT HAD MONEY KEEP IN HOSPITAL SAFE RETURNED PRIOR TO DISCHARGE. REPORT WAS GIVEN TO [facility] AFTER PT LEFT NO ONE WOULD ANSWER THE PHONE OR CALL BACK. PACKET WITH SCRIPTS SENT WITH PT. NO DISTRESS NOTED.
--- NOTE | 2019-02-22 13:58 | NUR ---
Pt. is doing better and is transfered to Rehab,prayed for the pt.
== END 2019-02-22 12:05 | DRG 871 ==
LOC: ER 11:38 → ICUW 14:56 → ICUE 14:56 → MEDS 02-17 00:10 → ENPENDDIS 02-22 11:30 → EDPENDDIS 02-22 11:30 → MEDS 02-22 12:05
PROVIDERS: Emergency Medicine; Family Medicine; Internal Medicine; Internal Medicine Critical Care Medicine; ADMIT Internal Medicine
PROC: 0BH17EZ Insertion of Endotracheal Airway into Trachea, Via Natural or Artificial Opening (ICD-10-PCS; 2019-02-09)
PROC: 5A1945Z Respiratory Ventilation, 24-96 Consecutive Hours (ICD-10-PCS; 2019-02-09)
PROC: 5A2204Z Restoration of Cardiac Rhythm, Single (ICD-10-PCS; 2019-02-09)
PROC: 02HV33Z Insertion of Infusion Device into Superior Vena Cava, Percutaneous Approach (ICD-10-PCS; principal; 2019-02-10)
DX: A41.51 Sepsis due to Escherichia coli [E. coli] (principal); K72.00 Acute and subacute hepatic failure without coma; J96.01 Acute respiratory failure with hypoxia; I50.23 Acute on chronic systolic (congestive) heart failure; R65.21 Severe sepsis with septic shock; J69.0 Pneumonitis due to inhalation of food and vomit; I50.22 Chronic systolic (congestive) heart failure; N17.9 Acute kidney failure, unspecified; I47.2 Ventricular tachycardia; E87.1 Hypo-osmolality and hyponatremia; E87.2 Acidosis; I42.9 Cardiomyopathy, unspecified; N10 Acute pyelonephritis; J44.9 Chronic obstructive pulmonary disease, unspecified; G70.00 Myasthenia gravis without (acute) exacerbation; I25.10 Atherosclerotic heart disease of native coronary artery without angina pectoris; E03.9 Hypothyroidism, unspecified; Z87.891 Personal history of nicotine dependence; Z79.82 Long term (current) use of aspirin; I34.0 Nonrheumatic mitral (valve) insufficiency; I95.9 Hypotension, unspecified; D69.6 Thrombocytopenia, unspecified; I11.0 Hypertensive heart disease with heart failure
CPT/HCPCS: 31500; 31720; 36415; 36430; 36556; 36600; 51702; 71045; 76770; 80048; 80053; 80069; 80076; 80202; 81001; 82248; 82728; 82803; 82947; 83540; 83550; 83605; 83735; 83880; 84100; 84132; 84484; 85014; 85018; 85025; 85610; 85730; 86850; 86900; 86901; 86923; 87040; 87070; 87077; 87086; 87186; 87205; 92960; 93005; 93010; 93260; 94002; 94003; 94640; 94660; 94760; 96365-59; 96366-59; 96368; 96376-59; 97110; 97116; 97162; 97166; 97530; 97535; 99291-25; 99292; A9270-GY; C1751; C8929; C9113; J0282; J0696; J1650; J1720; J1940; J1956; J2370; J2543; J2704; J3010; J3370; J3480; J7030; J7040; J7050; J7060; J7120; J7512; J7517; P9016; Q9957

== ENCOUNTER 2019-03-17 00:13 | Emergency (ER) | payer OTHER ==
[~2019-03-17] VITALS: Ht 172.7 cm; Wt 79.4 kg
[~2019-03-17 00:13] MED LIST changes: +ACET325 PO; +Amiodarone HCl200 MG PO; +BENMENLOZ PO; +CEFP200 PO; +Florastor250 MG PO; +LEVSOD112 PO; +LORA.5 PO; +METO25 PO; +ONDA4ODT SL; +POTA10T PO; +PRED20; +TRAZ50 PO
[2019-03-17] MEDS ORDERED: FURO40 PO (00:30)
[2019-03-17] MEDS ORDERED: LEVSOD100 PO (00:33)
[2019-03-17] MEDS ORDERED: Florastor250 MG PO (00:36)
[2019-03-17] MEDS ORDERED: GUAI600T33 PO (00:36)
[2019-03-17] MEDS ORDERED: Pacerone400 MG PO (00:37)
[2019-03-17 00:38] LABS: BASOPHILS ABSOLUTE AUTO 0.03 K/mm3 (0.00-0.23); BASOPHILS PERCENT AUTO 1 % (0-2); EOSINOPHILS ABSOLUTE AUTO 0.06 K/mm3 (0.00-0.68); EOSINOPHILS PERCENT AUTO 1 % (0-6); Hematocrit 26.6 % (37.0-53.0); IMMATURE GRAN ABSOLUTE AUTO 0.05 K/mm3 (0.00-0.10); IMMATURE GRAN PERCENT AUTO 1 % (0-1); LYMPHOCYTES PERCENT AUTO 21 % (21-46); MONOCYTES ABSOLUTE AUTO 0.61 K/mm3 (0.16-1.47); MONOCYTES PERCENT AUTO 10 % (4-13); Mean Corpuscular HGB 32.8 pg (26.0-34.0); Mean Corpuscular HGB Conc 30.1 g/dL (31.5-36.5); Mean Corpuscular Volume 109 fL (80-100); Mean Platelet Volume 10.3 fL (9.1-12.4); NEUTROPHILS ABSOLUTE AUTO 4.16 K/mm3 (1.96-9.15); NEUTROPHILS PERCENT AUTO 67 % (41-73); Platelet Count 136 K/mm3 (150-400); RDW Coefficient Variation 16.2 % (11.7-14.2); RDW Standard Deviation 65.7 fL (35.1-46.3); Red Blood Cell Count 2.44 M/mm3 (4.30-5.90); White Blood Cell Count 6.21 K/mm3 (4.00-11.30)
[2019-03-17] MEDS ORDERED: Midodrine HCl5 MG PO (00:38)
[2019-03-17] MEDS ORDERED: MIDO5 PO (00:39)
[2019-03-17] MEDS ORDERED: CEPACOL SORE T1 EACH MM (00:41)
[2019-03-17] MEDS ORDERED: BISA10S PR (00:42)
[2019-03-17] MEDS ORDERED: Milk Of Ma400 MG/5 M PO (00:43)
[2019-03-17 00:52] LABS: Alanine Aminotransfer (ALT/SGP 24 U/L (12-78); Albumin, Blood 2.6 g/dL (3.4-5.0); Alk Phos 84 U/L (50-136); Anion Gap 5 mmol/L (6-16); Aspartate Aminotrans (AST/SGOT 20 U/L (12-37); Bilirubin, Total 0.6 mg/dL (0.1-1.0); Blood Urea Nitrogen 16 mg/dL (8-24); Bun/Creatinine Ratio 14.8 (12.0-20.0); CO2, Blood 29 mmol/L (21-32); Calcium, Blood 7.9 mg/dL (8.5-10.1); Chloride, Blood 107 mmol/L (98-108); Creatinine, Blood 1.08 mg/dL (0.60-1.20); Globulin, Blood 2.7 g/dL (2.2-4.0); Glomerular Filtration Rate >60 (60-); Glucose, Blood 85 mg/dL (70-99); Potassium, Blood 3.9 mmol/L (3.5-5.5); Sodium, Blood 141 mmol/L (136-145); Total Protein, Blood 5.3 g/dL (6.4-8.2); Troponin I 0.016 ng/mL (0.000-0.040)
== END 2019-03-17 02:51 | disposition home or self-care (01) ==
LOC: ER 00:13
PROVIDERS: Emergency Medicine
DX: R07.9 Chest pain, unspecified (principal); L89.152 Pressure ulcer of sacral region, stage 2; J44.9 Chronic obstructive pulmonary disease, unspecified; I50.9 Heart failure, unspecified; Z87.891 Personal history of nicotine dependence; Z88.1 Allergy status to other antibiotic agents; Z88.8 Allergy status to other drugs, medicaments and biological substances; Z79.899 Other long term (current) drug therapy; Z79.82 Long term (current) use of aspirin
CPT/HCPCS: 71046; 80053; 83880; 84484; 85025; 93005; 93010; 99285-25; A9270-GY

== ENCOUNTER 2019-05-17 12:42 | Inpatient (IN) | payer OTHER, MEDICARE, SELFPAY ==
[~2019-05-17] VITALS: Ht 172.7 cm; Wt 68.6 kg
[~2019-05-17 12:42] MED LIST changes: +ALBU90OI INH; -ALBU90OI61 INH; +BISA10S PR; +CEPACOL SORE T1 EACH MM; +FEROSUL220 MG/51 PT; -FERSU300 PO; +FURO40 PO; +LEVSOD100 PO; +MIDO5 PO; +Midodrine HCl5 MG PO; +Milk Of Ma400 MG/5 M PO; +Pacerone400 MG PO
[2019-05-17 13:42] LABS: BASOPHILS ABSOLUTE AUTO 0.01 K/mm3 (0.00-0.23); BASOPHILS PERCENT AUTO 0 % (0-2); EOSINOPHILS ABSOLUTE AUTO 0.01 K/mm3 (0.00-0.68); EOSINOPHILS PERCENT AUTO 0 % (0-6); Hemoglobin 10.1 g/dL (13.5-17.5); IMMATURE GRAN ABSOLUTE AUTO 0.04 K/mm3 (0.00-0.10); IMMATURE GRAN PERCENT AUTO 1 % (0-1); LYMPHOCYTES PERCENT AUTO 8 % (21-46); MONOCYTES ABSOLUTE AUTO 0.41 K/mm3 (0.16-1.47); MONOCYTES PERCENT AUTO 7 % (4-13); Mean Corpuscular HGB 29.9 pg (26.0-34.0); Mean Corpuscular HGB Conc 30.6 g/dL (31.5-36.5); Mean Corpuscular Volume 98 fL (80-100); Mean Platelet Volume 10.5 fL (9.1-12.4); NEUTROPHILS ABSOLUTE AUTO 5.15 K/mm3 (1.96-9.15); NEUTROPHILS PERCENT AUTO 84 % (41-73); Platelet Count 156 K/mm3 (150-400); RDW Coefficient Variation 17.5 % (11.7-14.2); RDW Standard Deviation 62.8 fL (35.1-46.3); Red Blood Cell Count 3.38 M/mm3 (4.30-5.90); White Blood Cell Count 6.12 K/mm3 (4.00-11.30)
[2019-05-17 13:54] LABS: Alanine Aminotransfer (ALT/SGP 14 U/L (12-78); Albumin, Blood 2.7 g/dL (3.4-5.0); Albumin/Globulin Ratio 0.9 (0.8-1.8); Alk Phos 97 U/L (50-136); Anion Gap 12 mmol/L (6-16); Aspartate Aminotrans (AST/SGOT 18 U/L (12-37); Bilirubin, Total 1.1 mg/dL (0.1-1.0); Blood Urea Nitrogen 29 mg/dL (8-24); Bun/Creatinine Ratio 32.8 (12.0-20.0); CO2, Blood 26 mmol/L (21-32); Calcium, Blood 8.2 mg/dL (8.5-10.1); Chloride, Blood 102 mmol/L (98-108); Creatinine, Blood 0.88 mg/dL (0.60-1.20); Glomerular Filtration Rate >60 (60-); Glucose, Blood 68 mg/dL (70-99); Potassium, Blood 2.8 mmol/L (3.5-5.5); Sodium, Blood 140 mmol/L (136-145); Total Protein, Blood 5.7 g/dL (6.4-8.2)
[2019-05-17 14:39] LABS: Bilirubin, Urine Neg (Neg); Blood, Urine 1+ (Neg); Glucose Qualitative, Urine Neg (Neg); Ketones, Urine 1+ (Neg); Nitrite, Urine Neg (Neg); Protein, Urine 1+ (Neg); Urobilinogen, Urine NORM (Normal); pH, Urine 6.5 (5.0-8.0)
[2019-05-17 15:03] LABS: Appearance, Urine Clear (Clear); Color, Urine Yellow (P-Yellow)
[2019-05-17 15:08] LABS: Leukocyte Esterase, Urine 1+ (Neg)
[2019-05-17 15:09] LABS: Bacteria Few /hpf; Hyaline Casts 0-2 /lpf (0-2); Squamous Epithelial Cells Few /hpf (Few)
--- NOTE | 2019-05-17 18:17 | NUR ---
PT ARRIVED FROM ED VIA GURNEY WITH IVF AND POTASSIUM RIDER INFUSING. TRANSFERRED TO BED USING SLIDER SHEET. VS AND WEIGHT OBTAINED, PT ORIENTED TO ROOM AND CALL SYSTEM. COMFORTABLE AND WATCHING TV AT THIS TIME. CALL LYNN IN REACH.
[2019-05-18] MEDS ORDERED: ELIQUIS5 MG PO (00:18)
[2019-05-18] MEDS ORDERED: ELIQUIS5 MG PT (00:21)
[2019-05-18] MEDS ORDERED: METO50 PO (00:25)
[2019-05-18] MEDS ORDERED: MIRT15 PO (00:27)
[2019-05-18] MEDS ORDERED: MYCO250 PO (00:32)
--- NOTE | 2019-05-18 00:36 | NUR ---
BEGINNING SHIFT SUMMARY ASSUMED CARE OF PT AT 1900. PT WAS LYING IN BED RESTING. PT IS A/O X4, PT IS A GOOD HISTORIAN. HEART SOUNDS REGULAR, PT HAS IMPLANTED PACEMAKER ON L ABDOMEN, ON TELE AT SINUS WITH BBB AT 60. INSPIRATORY AND EXPIRATORY WHEEZES HEARD ON AUSCALTATION, PT DENIES SOB/ DYSPNEA. PT IS GETTIN POTASSIUM IV DUE TO HYPOKALEMIA, REPEAT LAB AFTER FIRST BAG SHOWED LITTLE PROGRESS, 2.8 TO 2.7, HOSPITALIST CALLED, SAID TO ORDER LABS AFTER ALL THE BAGS ARE COMPLETED AND TO REPORT BACK. PT STATED THAT HE LOST OVER 40LB OVER THE PAST COUPLE MONTHS DUE TO ONLY BEING ABOUT TO EAT A COUPLE TABLESPOONS OF FOOD A DAY, PT REFUSED ALL ORAL MEDICATIONS DUE TO RISK OF CHOKING. PT IS EXPECTED TO GO INTO SURGERY IN THE AM FOR PEG TUBE INCERSION. CALL LIGHT IN REACH, BED IN LOWEST POSITION, WILL CONTINUE TO MONITOR.
[2019-05-18] MEDS ORDERED: PRED20 PO (00:37)
[2019-05-18] MEDS ORDERED: PRAM.5 PO (00:37)
[2019-05-18 01:39] LABS: BASOPHILS PERCENT AUTO 0 % (0-2); EOSINOPHILS ABSOLUTE AUTO 0.01 K/mm3 (0.00-0.68); EOSINOPHILS PERCENT AUTO 0 % (0-6); Hematocrit 29.6 % (37.0-53.0); Hemoglobin 9.2 g/dL (13.5-17.5); IMMATURE GRAN ABSOLUTE AUTO 0.01 K/mm3 (0.00-0.10); IMMATURE GRAN PERCENT AUTO 0 % (0-1); LYMPHOCYTES ABSOLUTE AUTO 0.48 K/mm3 (0.84-5.20); LYMPHOCYTES PERCENT AUTO 12 % (21-46); MONOCYTES ABSOLUTE AUTO 0.26 K/mm3 (0.16-1.47); MONOCYTES PERCENT AUTO 6 % (4-13); Mean Corpuscular HGB 30.1 pg (26.0-34.0); Mean Corpuscular HGB Conc 31.1 g/dL (31.5-36.5); Mean Corpuscular Volume 97 fL (80-100); Mean Platelet Volume 11.2 fL (9.1-12.4); NEUTROPHILS ABSOLUTE AUTO 3.39 K/mm3 (1.96-9.15); NEUTROPHILS PERCENT AUTO 82 % (41-73); Platelet Count 124 K/mm3 (150-400); RDW Coefficient Variation 17.4 % (11.7-14.2); RDW Standard Deviation 61.5 fL (35.1-46.3); Red Blood Cell Count 3.06 M/mm3 (4.30-5.90); White Blood Cell Count 4.15 K/mm3 (4.00-11.30)
[2019-05-18 01:50] LABS: Anion Gap 9 mmol/L (6-16); Blood Urea Nitrogen 24 mg/dL (8-24); Bun/Creatinine Ratio 34.4 (12.0-20.0); CO2, Blood 26 mmol/L (21-32); Calcium, Blood 7.4 mg/dL (8.5-10.1); Chloride, Blood 107 mmol/L (98-108); Glomerular Filtration Rate >60 (60-); Glucose, Blood 71 mg/dL (70-99); Magnesium, Blood 1.2 mg/dL (1.6-2.4); Sodium, Blood 142 mmol/L (136-145)
[2019-05-18 01:54] LABS: International Normalized Ratio 1.14; Prothrombin Time Results 12.1 Sec (9.7-11.5)
--- NOTE | 2019-05-18 06:32 | NUR ---
END SHIFT SUMMARY HOSPITALIST NOTIFIED OF POTASSIUM LEVEL AT 3.0 AFTER 60 MEQ OF POTASSIUM, DR. EDWARD ORDERED ANOTHER 40MEQ TO BE ADMINISTERED BEFORE SURGURY TODAY. PT FELL ASLEEP EARLY THIS MORNING. PT IS CURRENTLY SLEEPING, PT REFUSED MORNING MEDICATES DUE TO ASPIRATION RISK. PT HAS BEEN NPO SINCE 0200. CALL LIGHT IN REACH, BED IN LOWEST POSTION, WILL CONTINUE TO MONITOR UNTIL DAYSHIFT NURSE ARRIVES.
--- NOTE | 2019-05-18 13:20 | NUR ---
History, Chart, Medications and Allergies reviewed before start of procedure.
--- NOTE | 2019-05-18 17:56 | NUR ---
PT. LYING QUIETLY NS INFUSING, ASKS WHEN IS DINNER, INFORM HIM THAT HE CAN'T EAT BECAUSE HE CAN'T SWALLOW AND THAT HIS TUBE FEEDINGS WILL START AT EIGHT. PT. HAS NOT GOTTEN OUT OF BED TODAY BECAUSE HE SAYS HE'S TO WEAK. PT. HAS REFUSED ALL MEDS TODAY BECAUSE HE SAAYS " I CAN'T SWALLOW AND I HAVE LOST 40 POUNDS."
--- NOTE | 2019-05-19 01:36 | NUR ---
BEGINNING SHIFT SUMMARY ASSUMED CARE OF PT AT 1900. PT WAS LYING IN BED RESTING. PT APOLIGIZED TO DAYSHIFT NURSE ABOUT BEING FUSTRATED EARLIER DUE TO BEING NPO STATUS. SPEECH THERAPY IN THE AM. PT IS A/O X4, PT IS HAVING DIFFICULTY COPING WITH CONDITION T/O THE SHIFT. PT C/O TENDERNESS IN HIS ABDOMEN, PEGTUBE SITE IS FREE OF REDNESS, SCANT DISCHARGE AT SITE, NUTRITION INFUSING, 30ML RESIDUAL AFTER 3 HOURS, MEDICATIONS CHANGED TO COMPENSATE NPO STATUS. HEART SOUNDS IRREGULAR, TELE REPORTS SINUS WITH BBB @ 67, 3+ PITTING EDEMA BLE, DENIES CP AT THIS TIME. LUNG SOUNDS DIMINISHED WITH EXPIRATORY WHEEZING AT BASES, DENIES SOB/DYSPNEA AT THIS TIME. CONDOM CATHETER PLACED FOR PT COMFORT. PT IS CURRENTLY SLEEPING, CALL LIGHT IN REACH, BED IN LOWEST POSTION, WILL CONTINUE TO MONITOR.
--- NOTE | 2019-05-19 05:33 | NUR ---
END SHIFT SUMMARY PT SLEPT LITTLE LAST NIGHT. PT IS UNCOMFORTABLE SITTING AT 30 DEGREE POSITION WHILE BEING CONTINUEOUSLY FED THROUGH THE FEEDING TUBE. RISIDUAL CHECK AT 0430, PT HAD MORE THAN 60ML, THIS NURSE WILL HOLD OFF INCREASING THE FEEDING AND WILL NOTIFY DAYSHIFT NURSE TO ADJUST ACCORDINGLY. PT IS CURRENTLY SLEEPING, CALL LIGHT IN REACH, BED IN LOWEST POSTION, WILL CONTINUE TO MONITOR NTIL DAYSHIFT NURSE ARRIVES.
[2019-05-19 05:39] LABS: Alanine Aminotransfer (ALT/SGP 11 U/L (12-78); Albumin, Blood 2.3 g/dL (3.4-5.0); Albumin/Globulin Ratio 0.8 (0.8-1.8); Alk Phos 94 U/L (50-136); Anion Gap 9 mmol/L (6-16); Aspartate Aminotrans (AST/SGOT 15 U/L (12-37); Bilirubin, Total 0.9 mg/dL (0.1-1.0); Blood Urea Nitrogen 19 mg/dL (8-24); Bun/Creatinine Ratio 25.5 (12.0-20.0); CO2, Blood 24 mmol/L (21-32); Calcium, Blood 7.5 mg/dL (8.5-10.1); Chloride, Blood 107 mmol/L (98-108); Creatinine, Blood 0.75 mg/dL (0.60-1.20); Globulin, Blood 2.9 g/dL (2.2-4.0); Glomerular Filtration Rate >60 (60-); Glucose, Blood 121 mg/dL (70-99); Magnesium, Blood 2.3 mg/dL (1.6-2.4); Phosphorus, Blood 3.7 mg/dL (2.5-4.9); Potassium, Blood 3.8 mmol/L (3.5-5.5); Sodium, Blood 140 mmol/L (136-145); Total Protein, Blood 5.2 g/dL (6.4-8.2)
--- NOTE | 2019-05-19 13:53 | NUR ---
Pt. in bed resting , may go to Rehab today prayed for pt.
--- NOTE | 2019-05-19 18:12 | NUR ---
SHIFT SUMMARY- PT A/O. PT REFUSING PHYSICAL THERAPY AND OT. HE SAID HE WILL WORK WITH THEM TOMORROW HE IS JUST SORE FROM SURGERY. PT SAID HE WOULD BE WILLING TO GO TO REHAB IF NECESSARY TO REGAIN HIS STRENGTH. PT CONTINUE ON TUBE FEEDINGS AND IS TOLERATING WELL WITH NO RESIDUAL.
--- NOTE | 2019-05-19 19:23 | NUR ---
Several meeting with pt to review his care needs and a plan pt fatigued, and some discomfort. He is agitated and worried about his . Review of pt with care managers speech therapist and nursing. [facility] pt did not want to do PT or OT today to fatigued. was agreeable to try tomorrow. will review polst with patient
--- NOTE | 2019-05-19 23:03 | NUR ---
BEGINNING SHIFT SUMMARY ASSUMED CARE OF PT AT 1900. PT IS A/O X4 PT IS HAVING DIFFICULTY COPING WITH HIS CONDITION. HEART SOUNDS IRREGULAR, LUNG SOUNDS DIMINISHED. PT DENIES SOB/DYSPNEA/CP AT THIS TIME. PT HAS 3+ PITTING EDEMA IN BLE'S. PT BOTTOM HIS SLIGHTY RED, MEPILEX DRESSING APPLIED. PT DOES NOT TOLERATE WELL HAVING HIS HEAD AT 30 DEGREES DUE TO CONTNIOUS FEEDINGS, COMPENSATED BY BEING ON HIS SIDE WHILE AT 30 DEGREES. PT STATED THAT HE WANTED SOMETHING ORDERED FOR SLEEP, NOTIFIED AND ORDERED [facility], PT HAS BEEN SLEEPING AND DIDNT NEED IT. PT IS CURRENTLY SLEEPING STILL, CALL LIGHT IN REACH, BED IN LOWEST POSTION, WILL CONTINUE TO MONITOR.
--- NOTE | 2019-05-20 04:38 | NUR ---
END SHIFT SUMMARY PT C/O PAIN IN HIS ABDOMEN FROM THE PEG TUBE, MEDICATED PER EMAR AND REPOSITIONED. LESS THAN 10ML OF RESIDUAL IN PEG TUBE BEFORE MEDICATION ADMINISTRATION. CALL LIGHT IN REACH, BED IN LOWEST POSTION, WILL CONTINUE TO MONITOR UNTIL DAYSHIFT NURSE ARRIVES.
[2019-05-20 05:46] LABS: Magnesium, Blood 1.9 mg/dL (1.6-2.4)
[2019-05-20 05:47] LABS: Anion Gap 7 mmol/L (6-16); Blood Urea Nitrogen 20 mg/dL (8-24); Bun/Creatinine Ratio 30.2 (12.0-20.0); CO2, Blood 25 mmol/L (21-32); Calcium, Blood 7.4 mg/dL (8.5-10.1); Chloride, Blood 108 mmol/L (98-108); Creatinine, Blood 0.66 mg/dL (0.60-1.20); Glomerular Filtration Rate >60 (60-); Glucose, Blood 142 mg/dL (70-99); Phosphorus, Blood 1.7 mg/dL (2.5-4.9); Potassium, Blood 3.9 mmol/L (3.5-5.5); Sodium, Blood 140 mmol/L (136-145)
--- NOTE | 2019-05-20 09:22 | NUR ---
Met with Yash this morning briefly before PT/OT worked with him. 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 He states he has had HH support from [facility] in the past and feels that this would be beneficial again once he completes his stay at rehab. Spoke with him about POLST form. He states he is interested in filling this form out prior to being discharged to rehab however PT would like to work with him this morning. Pt agreeable to fill out POLST form once he is finished working with PT/OT.
[2019-05-20] MEDS ORDERED: Docusate S50 MG/5 ML PT (12:01)
[2019-05-20] MEDS ORDERED: THERA1 EACH PT (12:02)
--- NOTE | 2019-05-20 17:44 | NUR ---
SHIFT SUMMARY- PT A/O, PLESANT AND COOPERATIVE. PT DISCONTINUED CONTINIOUS TUBE FEEDINGS, SWITCHED TO BOLUS FEEDING SCHEDULE EVERY TWO HOUR. GAVE TWO HALF CARTON FEEDINGS AND ONE WHOLE CARTON FEEDING WITH NO RESIDUAL. PT SWITCHED TO MECHANICAL SOFT DIET PER SPEECH THERAPY AND IS TOLERATING WELL. PT WAS HOPEFUL TO BE TRANSFERED TO A SNF TODAY, BUT THERE WERE NO AVAILABLE BEDS AND DIETARY WANTED TO MONITOR BOLUS FEEDINGS.
[2019-05-21 06:30] LABS: Anion Gap 7 mmol/L (6-16); Blood Urea Nitrogen 21 mg/dL (8-24); CO2, Blood 23 mmol/L (21-32); Chloride, Blood 111 mmol/L (98-108); Glomerular Filtration Rate >60 (60-); Glucose, Blood 87 mg/dL (70-99); Magnesium, Blood 1.6 mg/dL (1.6-2.4); Phosphorus, Blood 1.9 mg/dL (2.5-4.9); Potassium, Blood 3.8 mmol/L (3.5-5.5); Sodium, Blood 141 mmol/L (136-145)
--- NOTE | 2019-05-21 08:01 | NUR ---
SHIFT SUMMARY: PT NAUSEATED IN BEGINNING OF SHIFT AFTER EVENING BOLUS FEED. GIVEN ZOFRAN PER EMAR. ABD DISTENDED WITH TYMPANIC BOWEL TONES. PT FEELING MUCH BETTER THIS MORNING. GIVEN MORNING BOLUS OF 1/2 CARTION WHICH PT TOLERATED WELL. BBB ON TELE WITH HR AT 59. AWAITING SNF PLACEMENT.
--- NOTE | 2019-05-21 16:44 | NUR ---
SHIFT SUMMARY PT TOLERATING LITTLE PO INTAKE. TUBE FEEDS TOLERATING WELL. LAST FEED WAS 3/4 CAN. PT STATES HE DOESN'T FEEL TOO FULL ANYMORE. PT MEDICATED FOR PAIN TWICE THIS SHIFT. PT PLANNED TO DC TO SNF. AWAITING BED. CONT FLUIDS DC'ED. OT POTASSIUM PHOSPHORUS INFUSING CURRENTLY. PT RECIEVED BED BATH THIS SHIFT. NO OTHER CHANGES IN ASSESSMENT AT THIS TIME. VSS. WILL CONTINUE TO MONITOR UNTIL TURNOVER IS COMPLETE.
--- NOTE | 2019-05-22 00:26 | NUR ---
RESTING. TUBE FEEDING TOLERATED. COSMETIC COUNSELOR REPORTS NSR,BBB AT 75. DENIES PAIN, SOB, AND N/V. REQUESTED SLEEP AID AND TRAZADONE 50 MG PO GIVEN FOR INSOMNIA PER EMAR. CALL LIGHT IN REACH.
--- NOTE | 2019-05-22 04:43 | NUR ---
SHIFT SUMMARY PATIENT HAD NO ACUTE CHANGES OBSERVED. AXOX 3 AND BEDREST. PEG TUBE FEEDINGS TOLERATED WELL. DENIES PAIN, SOB, AND N/V. PIV REMAINS INTACT. ROCK WOOL APPLICATOR REPORTS NSR,BBB @75. TRAZADONE 50 MG GIVEN FOR INSOMNIA PER EMAR. COOPERATIVE WITH CARE. CALL LIGHT IN REACH. BED IN LOWEST POSITION. WILL CONTINUE TO MONITOR UNTIL DAY SHIFT NURSE ASSUMES CARE.
[2019-05-22 05:48] LABS: Albumin, Blood 2.1 g/dL (3.4-5.0); Anion Gap 5 mmol/L (6-16); Blood Urea Nitrogen 19 mg/dL (8-24); Bun/Creatinine Ratio 25.1 (12.0-20.0); CO2, Blood 27 mmol/L (21-32); Calcium, Blood 7.7 mg/dL (8.5-10.1); Chloride, Blood 106 mmol/L (98-108); Creatinine, Blood 0.76 mg/dL (0.60-1.20); Glomerular Filtration Rate >60 (60-); Glucose, Blood 94 mg/dL (70-99); Phosphorus, Blood 3.2 mg/dL (2.5-4.9); Potassium, Blood 4.8 mmol/L (3.5-5.5); Sodium, Blood 138 mmol/L (136-145)
--- NOTE | 2019-05-22 06:11 | NUR ---
BOLUS FEEDING OF 140mL WITH 90 mL RESIDUALS PRIOR TO FEEDING. TOLERATED WELL. CALL LIGHT IN REACH.
--- NOTE | 2019-05-22 07:30 | NUR ---
PT OFF O2 PT TAKEN OFF O2 PRIOR TO AM VITALS. PT SATING AT 97-99 ON RA. WILL CONTINUE TO MONITOR.
--- NOTE | 2019-05-22 09:40 | NUR ---
0900 DANIEL HELD PT STATES HE IS FEELING FULL. 190 RESIDUAL REINSTILLED. MEDS GIVEN WITH WATER FLUSHES. WILL CONTINUE TO MONITOR.
--- NOTE | 2019-05-22 16:42 | NUR ---
SHIFT SUMMARY PT HAS WEAK PRODUCTIVE COUGH. IS AND FLUTTER VALVE STARTED THIS SHIFT. CHEST XRAY TAKEN. PT HYPOTENSIVE. MIDODRINE GIVEN ORDERED. OTHER VITALS STABLE. PT MEDICATED FOR PAIN ONCE THIS SHIFT. PT TOLERTATING LITTLE PO INTAKE. PEG TUBE FOR SUPPLIMENTATION. NO OTHER CHANGES IN ASSESSMENT AT THIS TIME. WILL CONTINUE TO MONITOR UNTIL TURNOVER IS COMPLETE.
--- NOTE | 2019-05-22 22:08 | NUR ---
PATIENT REQUEST MEDICATION FOR INSOMNIA. TRAZADONE 50 MG GIVEN PER EMAR. MEDICATIONS CRUSHED AND THROUGH PEG TUBE. DENIES PAIN, SOB, AND N/V. CALL LIGHT IN REACH.
--- NOTE | 2019-05-23 04:08 | NUR ---
SHIFT SUMMARY PATIENT HAD NO ACUTE CHANGES OBSERVED. AXOX 3 AND BEDREST AT NIGHT. PEG TUBE FOR CRUSHED MEDICATION AND SUPPLEMENTS. TOLERATED WELL. PIV REMAINS INTACT. IV ABX INFUSED. VSS/AFBERILE. DENIES PAIN, SOB, AND N/V. TRAZADONE 50 MG GIVEN FOR INSOMNIA. COOPERATIVE WITH CARE. CALL LIGHT IN REACH. BED IN LOWEST POSITION. WILL CONTINUE TO MONITOR UNTIL DAY SHIFT NURSE ASSUMES CARE.
[2019-05-23 05:28] LABS: BASOPHILS PERCENT AUTO 0 % (0-2); EOSINOPHILS PERCENT AUTO 0 % (0-6); Hemoglobin 8.3 g/dL (13.5-17.5); IMMATURE GRAN ABSOLUTE AUTO 0.05 K/mm3 (0.00-0.10); IMMATURE GRAN PERCENT AUTO 1 % (0-1); LYMPHOCYTES PERCENT AUTO 8 % (21-46); MONOCYTES ABSOLUTE AUTO 0.36 K/mm3 (0.16-1.47); MONOCYTES PERCENT AUTO 7 % (4-13); Mean Corpuscular HGB 29.7 pg (26.0-34.0); Mean Corpuscular HGB Conc 29.6 g/dL (31.5-36.5); NEUTROPHILS ABSOLUTE AUTO 4.42 K/mm3 (1.96-9.15); NEUTROPHILS PERCENT AUTO 85 % (41-73); Platelet Count 126 K/mm3 (150-400); RDW Coefficient Variation 18.1 % (11.7-14.2); RDW Standard Deviation 67.1 fL (35.1-46.3); Red Blood Cell Count 2.79 M/mm3 (4.30-5.90); White Blood Cell Count 5.23 K/mm3 (4.00-11.30)
[2019-05-23 05:31] LABS: Mean Corpuscular Volume 100 fL (80-100)
[2019-05-23 05:55] LABS: Albumin, Blood 2.1 g/dL (3.4-5.0); Anion Gap 7 mmol/L (6-16); Blood Urea Nitrogen 18 mg/dL (8-24); Bun/Creatinine Ratio 22.2 (12.0-20.0); CO2, Blood 28 mmol/L (21-32); Calcium, Blood 8.1 mg/dL (8.5-10.1); Chloride, Blood 103 mmol/L (98-108); Creatinine, Blood 0.81 mg/dL (0.60-1.20); Glomerular Filtration Rate >60 (60-); Glucose, Blood 97 mg/dL (70-99); Phosphorus, Blood 2.7 mg/dL (2.5-4.9); Potassium, Blood 4.8 mmol/L (3.5-5.5); Sodium, Blood 138 mmol/L (136-145)
--- NOTE | 2019-05-23 06:25 | NUR ---
BOLUS TUBE FEEDING 180 mL WITH LESS THAN 20 mL RESIDUAL. TOLERATED WELL. REPORTED BACK PAIN AND FENTANYL 25 MCG IV GIVEN PER EMAR. CALL LIGHT IN REACH.
--- NOTE | 2019-05-23 09:16 | NUR ---
05/23/19 0916 Gretta Carter (LATE ENTRY) 05/18/19 1313 History, Chart, Medications and Allergies reviewed before start of procedure. PATIENT CONFIRMS NPO STATUS AND AGREES WITH SCHEDULED PROCEDURE. MONITOR INTACT WITH CONTINUOUS PULSE OXIMETRY AND INTERMITTENT BP.O2 VIA N/C INTACT THROUGHOUT SEDATION/PROCEDURE. 3-LEAD EKG REVIEWED WITH PHYSICIAN PRIOR TO START OF PROCEDURE. MAC PROVIDED BY DR. GARZA.
[2019-05-23] MEDS ORDERED: Vsl#3 Capsule1 EACH PO (11:29)
[2019-05-23] MEDS ORDERED: AMOCLA875 PT (11:30)
--- NOTE | 2019-05-23 14:37 | NUR ---
PATIENT WILL BE DISCHARGING TO [facility] FOR REHAB. IV REMOVED.
--- NOTE | 2019-05-23 16:32 | NUR ---
SHIFT SUMMARY PATIENTS DISCHARGE PLACED ON HOLD. IV ACCESS ALREADY DISCONTINUED SO DR CANTU PROVIDED ORDERS TO CHANGE IV MEDICATIONS TO MEDICATIONS ORDERED FOR TRANSFER. CHANGES MADE. PATIENT DISAPPOINTED ABOUT NOT MAKING THE TRANSFER TODAY, HOWEVER IS STILL VERY PLEASANT AND COOPERATIVE. VITALS ARE STABLE. CONTINUES ON IV ABX WITHOUT ANY S/SX OF ADVERSE REACTIONS NOTED OR REPORTED. PATIENT CALLS FOR STAFF ASSIST NEEDED. WILL CONTINUE TO MONITOR AND PROVIDE CARE NEEDED.
--- NOTE | 2019-05-24 06:39 | NUR ---
pt tolerating tube feed via gtube placed 05/18/19. room air denies sob. [employer] awaiting placement at SNF. Underlying myasthenia gravis.
--- NOTE | 2019-05-24 13:02 | NUR ---
Pt. is lying in bed resting he reports to be doing well encouraged pt. and prayed for him.
--- NOTE | 2019-05-24 16:37 | NUR ---
Permission Patient consented care on 05/24/19 at 1630. Patient was alert and oriented x4.
--- NOTE | 2019-05-24 19:17 | NUR ---
HE IS RESTING ON HIS L SIDE IN BED. HE TRIES TO EAT BUT IT IS DIFFICULT FOR HIM TO EAT LARGE AMTS FOR A FEW DIFERENT REASONS. TUBE FEEDING ORDERS CHANGED THIS AFTERNOON. HE MOST LIKELY DID NOT GET ENOUGH CALORIES TODAY. NO RESIDUALS THOUGH. HE IS ALSO FRUSTRATED ABOUT WHEN AND WHERE HE'LL GO FROM HERE. HE AMBULATED THE SARAVIA WITH OT AND LATER WITH PT. HE SAT UP A LOT. HE HAS LOWER LEG EDEMA. CONDOM CATH STAYED IN PLACE TODAY. NO OTHER PROBLEMS.
--- NOTE | 2019-05-25 07:32 | NUR ---
79 year old Male [employer] appears older than actual age. Has Myasthenia Gravis on antirejection rx cellcept. PT has aspiration pneumonia and on room air. PT not up out of bed, has new powerchair from [facility]. Pt was in rehab after prolonged recent prolonged illness and had been home with for less than 1 month before return to hospital. He had peg tube placed 05/18/19 here and has 4 time daily bolus of Jevity 1.5 samm and tolerated 1 bolus at 2030. He has meds crushed via tube. Pt has pacemaker of unknown staus, fullcode. 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 PT very weak deconditioned, immobile was to sit up during and after tube feeds. Has condom cath drains large amts of alberto cloudy urine. PT has placement pending at [facility] and said he had outstanding bill at [facility], was to be covered by [facility] and insurance. DC planning involved.
--- NOTE | 2019-05-25 13:34 | NUR ---
Pt. resting pastoral visit taken care nof .
--- NOTE | 2019-05-25 17:41 | NUR ---
PT ARRIVED TO THE UNIT VIA WHEEL CHAIR. PT TO RECIEVE ULTRASOUND OF THE LEG WHICH WILL DETERMINE TREATMENT. PT ORIENTATED TO THE ROOM. REPORTS NO NEEDS AT THIS TIME
--- NOTE | 2019-05-25 17:43 | NUR ---
SHIFT SUMMARY- PT A/O PLESANT AND COOPERATIVE. PT RECIEVING FEEDING BOLUS THROUGH PEG TUBE. PT TOLERATING FEEDINGS WELL WITH NO RESIDUAL. PEG TUBE DRESSING CLEANED AND CHANGED. PT AWAITING DISCHARGE SCHEDULED FOR TOMORROW TO SNF.
--- NOTE | 2019-05-25 23:58 | NUR ---
PATIENT TOLERATED CRUSHED MEDICATION THROUGH PEG TUBE. REPORTED INSOMNIA AND TRAZADONE 50 MG GIVEN PER EMAR. CALL LIGHT IN REACH.
--- NOTE | 2019-05-26 04:07 | NUR ---
SHIFT SUMMARY PATIENT HAD NO ACUTE CHANGES OBSERVED. AXOX 3 AND BEDREST. CONDOM CATHETER DRAINING. MEDS CRUSHED VIA PEG TUBE AND SUPPLEMENT NUTRITION PER ORDERS. TOLERATED WELL. REPORTED INSOMNIA AND TRAZADONE 50 MG GIVEN PER EMAR. REPORTED ANXIETY LATER IN SHIFT AND ATIVAN GIVEN PER EMAR. PATIENT ABLE TO GO BACK TO SLEEP. NO IV ACCESS. BM THIS SHIFT. VSS/AFBERILE. DENIES SOB AND N/V. CALL LIGHT IN REACH. BED IN LOWEST POSITION. WILL CONTINUE TO MONITOR UNTIL DAY SHIFT NURSE ASSUMES CARE.
--- NOTE | 2019-05-26 12:46 | NUR ---
DISCHARGE PT STABLE TRANSFERING TO [facility] IN [facility], REPORT CALLED TO SULAIMAN SANDOVAL AT [facility]. PT TRANSPORTED BY MEDICAL TRANSPORT VIA GURNEY. BELONGINS SENT BY PT.
--- NOTE | 2019-05-26 13:01 | NUR ---
Pt. is doing well and may go to Rehab today offered prayers
== END 2019-05-26 11:43 | DRG 56 ==
LOC: ER 12:42 → MEDS 16:42 → ENPENDDIS 05-23 11:31 → MEDS 05-26 11:43
PROVIDERS: Emergency Medicine; Internal Medicine; Surgery; ADMIT Internal Medicine
PROC: 3E0G76Z Introduction of Nutritional Substance into Upper GI, Via Natural or Artificial Opening (ICD-10-PCS; 2019-05-18)
PROC: 0DH68UZ Insertion of Feeding Device into Stomach, Via Natural or Artificial Opening Endoscopic (ICD-10-PCS; principal; 2019-05-18 12:45)
DX: G70.00 Myasthenia gravis without (acute) exacerbation (principal); E43 Unspecified severe protein-calorie malnutrition; J69.0 Pneumonitis due to inhalation of food and vomit; I50.22 Chronic systolic (congestive) heart failure; Z79.82 Long term (current) use of aspirin; J44.9 Chronic obstructive pulmonary disease, unspecified; Z87.891 Personal history of nicotine dependence; E87.6 Hypokalemia; Z90.49 Acquired absence of other specified parts of digestive tract; E83.39 Other disorders of phosphorus metabolism; E83.42 Hypomagnesemia; E03.9 Hypothyroidism, unspecified; I25.10 Atherosclerotic heart disease of native coronary artery without angina pectoris; I95.89 Other hypotension
CPT/HCPCS: 36415; 71046; 80048; 80053; 80069; 81001; 83735; 84100; 84132; 85025; 85610; 85730; 87086; 92526; 92610; 93005; 93010; 94640; 94667; 94760; 96365; 97110; 97116; 97162; 97166; 97530; 97535; 99285-25; C1769; C9113; J1644; J2250; J2405; J2543; J2704; J3010; J3475; J3480; J7030; J7050; J7060; J7120; J7512; J7517

== ENCOUNTER 2019-06-02 17:31 | Emergency (ER) | payer OTHER, MEDICARE, SELFPAY ==
[~2019-06-02] VITALS: Ht 172.7 cm; Wt 64.0 kg
[~2019-06-02 17:31] MED LIST changes: +AMOCLA875 PT; +Docusate S50 MG/5 ML PT; +ELIQUIS5 MG PO; +ELIQUIS5 MG PT; +METO50 PO; +MIRT15 PO; +THERA1 EACH PT; +Vsl#3 Capsule1 EACH PO
== END 2019-06-02 20:45 | disposition home or self-care (01) ==
LOC: ER 17:31
DX: K40.90 Unilateral inguinal hernia, without obstruction or gangrene, not specified as recurrent (principal); J44.9 Chronic obstructive pulmonary disease, unspecified; I50.9 Heart failure, unspecified; Z79.899 Other long term (current) drug therapy; Z87.891 Personal history of nicotine dependence
CPT/HCPCS: 76870; 99284-25

== ENCOUNTER 2020-01-18 17:02 | Emergency (ER) | payer OTHER, MEDICARE, SELFPAY ==
[~2020-01-18] VITALS: Ht 172.7 cm; Wt 74.8 kg
[2020-01-18 17:45] LABS: BASOPHILS ABSOLUTE AUTO 0.04 K/mm3 (0.00-0.23); BASOPHILS PERCENT AUTO 1 % (0-2); EOSINOPHILS ABSOLUTE AUTO 0.06 K/mm3 (0.00-0.68); EOSINOPHILS PERCENT AUTO 1 % (0-6); Hematocrit 44.7 % (37.0-53.0); Hemoglobin 13.7 g/dL (13.5-17.5); IMMATURE GRAN ABSOLUTE AUTO 0.03 K/mm3 (0.00-0.10); IMMATURE GRAN PERCENT AUTO 0 % (0-1); LYMPHOCYTES ABSOLUTE AUTO 1.05 K/mm3 (0.84-5.20); LYMPHOCYTES PERCENT AUTO 13 % (21-46); MONOCYTES ABSOLUTE AUTO 0.97 K/mm3 (0.16-1.47); MONOCYTES PERCENT AUTO 12 % (4-13); Mean Corpuscular HGB 32.3 pg (26.0-34.0); Mean Corpuscular HGB Conc 30.6 g/dL (31.5-36.5); Mean Corpuscular Volume 105 fL (80-100); NEUTROPHILS ABSOLUTE AUTO 5.76 K/mm3 (1.96-9.15); NEUTROPHILS PERCENT AUTO 73 % (41-73); NRBC ABSOLUTE 0.02 K/mm3 (0.00-0.02); NRBC Auto 0.3 /100 WBC (0.0-0.2); Platelet Count 132 K/mm3 (150-400); RDW Standard Deviation 69.1 fL (35.1-46.3); Red Blood Cell Count 4.24 M/mm3 (4.30-5.90); White Blood Cell Count 7.91 K/mm3 (4.00-11.30)
[2020-01-18 18:03] LABS: Alanine Aminotransfer (ALT/SGP 196 U/L (12-78); Albumin, Blood 3.4 g/dL (3.4-5.0); Albumin/Globulin Ratio 1.1 (0.8-1.8); Alk Phos 79 U/L (50-136); Anion Gap 5 mmol/L (6-16); Aspartate Aminotrans (AST/SGOT 132 U/L (12-37); Bilirubin, Total 2.3 mg/dL (0.1-1.0); Blood Urea Nitrogen 43 mg/dL (8-24); Bun/Creatinine Ratio 40.2 (12.0-20.0); CO2, Blood 27 mmol/L (21-32); Calcium, Blood 9.2 mg/dL (8.5-10.1); Chloride, Blood 111 mmol/L (98-108); Creatinine, Blood 1.07 mg/dL (0.60-1.20); Glomerular Filtration Rate >60 (60-); Glucose, Blood 123 mg/dL (70-99); Potassium, Blood 4.5 mmol/L (3.5-5.5); Sodium, Blood 143 mmol/L (136-145); Total Protein, Blood 6.4 g/dL (6.4-8.2)
== END 2020-01-18 18:55 | disposition home or self-care (01) ==
LOC: ER 17:02
PROVIDERS: Emergency Medicine
DX: K94.22 Gastrostomy infection (principal); I25.10 Atherosclerotic heart disease of native coronary artery without angina pectoris; J44.9 Chronic obstructive pulmonary disease, unspecified
CPT/HCPCS: 36415; 80053; 83690; 85025; 93005; 93010; 99283-25

== ENCOUNTER 2020-03-03 13:09 | Emergency (ER) | payer OTHER, MEDICARE ==
[~2020-03-03] VITALS: Ht 167.6 cm; Wt 52.2 kg
[~2020-03-03 13:09] MED LIST changes: +MULTI VITAMIN1 EACH PO; -THERA1 EACH PT
[2020-03-03 13:42] LABS: BASOPHILS ABSOLUTE AUTO 0.05 K/mm3 (0.00-0.23); BASOPHILS PERCENT AUTO 1 % (0-2); EOSINOPHILS ABSOLUTE AUTO 0.09 K/mm3 (0.00-0.68); EOSINOPHILS PERCENT AUTO 2 % (0-6); Hematocrit 45.4 % (37.0-53.0); Hemoglobin 14.2 g/dL (13.5-17.5); IMMATURE GRAN ABSOLUTE AUTO 0.02 K/mm3 (0.00-0.10); IMMATURE GRAN PERCENT AUTO 0 % (0-1); LYMPHOCYTES PERCENT AUTO 17 % (21-46); MONOCYTES ABSOLUTE AUTO 0.45 K/mm3 (0.16-1.47); MONOCYTES PERCENT AUTO 9 % (4-13); Mean Corpuscular HGB 32.4 pg (26.0-34.0); Mean Corpuscular HGB Conc 31.3 g/dL (31.5-36.5); Mean Corpuscular Volume 104 fL (80-100); Mean Platelet Volume 10.6 fL (9.1-12.4); NEUTROPHILS ABSOLUTE AUTO 3.69 K/mm3 (1.96-9.15); NEUTROPHILS PERCENT AUTO 71 % (41-73); Platelet Count 91 K/mm3 (150-400); RDW Coefficient Variation 19.3 % (11.7-14.2); RDW Standard Deviation 73.7 fL (35.1-46.3); Red Blood Cell Count 4.38 M/mm3 (4.30-5.90)
[2020-03-03 13:57] LABS: Alanine Aminotransfer (ALT/SGP 21 U/L (12-78); Albumin/Globulin Ratio 0.9 (0.8-1.8); Alk Phos 78 U/L (50-136); Anion Gap 5 mmol/L (6-16); Aspartate Aminotrans (AST/SGOT 21 U/L (12-37); Bilirubin, Total 2.5 mg/dL (0.1-1.0); Blood Urea Nitrogen 25 mg/dL (8-24); Bun/Creatinine Ratio 28.4 (12.0-20.0); CO2, Blood 27 mmol/L (21-32); Calcium, Blood 8.9 mg/dL (8.5-10.1); Chloride, Blood 111 mmol/L (98-108); Creatinine, Blood 0.88 mg/dL (0.60-1.20); Globulin, Blood 3.3 g/dL (2.2-4.0); Glomerular Filtration Rate >60 (60-); Glucose, Blood 74 mg/dL (70-99); Potassium, Blood 3.8 mmol/L (3.5-5.5); Sodium, Blood 143 mmol/L (136-145); Total Protein, Blood 6.3 g/dL (6.4-8.2)
[2020-03-03 16:24] LABS: Source, Urine Clean Catch
[2020-03-03 16:56] LABS: Appearance, Urine Clear (Clear); Blood, Urine 1+ (Neg); Color, Urine Amber (P-Yellow); Glucose Qualitative, Urine Neg (Neg); Ketones, Urine 1+ (Neg); Leukocyte Esterase, Urine Neg (Neg); Nitrite, Urine Neg (Neg); Protein, Urine 2+ (Neg); Specific Gravity, Urine 1.025 (1.003-1.022); Urobilinogen, Urine 3+ (Normal)
[2020-03-03 17:12] LABS: Bilirubin, Urine 2+ (Neg)
[2020-03-03 17:14] LABS: Bacteria Rare /hpf; Squamous Epithelial Cells Rare /hpf (Few); White Blood Cells, Urine 0-2 /hpf (0-5)
== END 2020-03-03 18:30 | disposition home or self-care (01) ==
LOC: ER 13:09
PROVIDERS: Emergency Medicine
DX: R53.1 Weakness (principal); Z87.39 Personal history of other diseases of the musculoskeletal system and connective tissue; Z93.1 Gastrostomy status; J44.9 Chronic obstructive pulmonary disease, unspecified; F32.9 Major depressive disorder, single episode, unspecified; I25.10 Atherosclerotic heart disease of native coronary artery without angina pectoris; I50.9 Heart failure, unspecified; K21.9 Gastro-esophageal reflux disease without esophagitis; Z88.1 Allergy status to other antibiotic agents; Z79.899 Other long term (current) drug therapy; Z79.52 Long term (current) use of systemic steroids; Z79.01 Long term (current) use of anticoagulants; Z95.5 Presence of coronary angioplasty implant and graft; Z87.891 Personal history of nicotine dependence; Z95.810 Presence of automatic (implantable) cardiac defibrillator
CPT/HCPCS: 36415; 71046; 80053; 81001; 82947; 83605; 85025; 87070; 87075; 87077; 87147; 87186; 87205; 93005; 93010; 96374; 99285-25; J2405

== ENCOUNTER 2020-03-16 17:02 | Emergency (ER) | payer OTHER, MEDICARE ==
[~2020-03-16] VITALS: Ht 172.7 cm; Wt 49.9 kg
[2020-03-16 19:41] LABS: Source, Urine Catheter
[2020-03-16 19:48] LABS: Blood, Urine 5+ (Neg); Glucose Qualitative, Urine Neg (Neg); Ketones, Urine 1+ (Neg); Leukocyte Esterase, Urine 2+ (Neg); Nitrite, Urine Neg (Neg); Protein, Urine 3+ (Neg); Urobilinogen, Urine 2+ (Normal)
[2020-03-16 19:58] LABS: Appearance, Urine Cloudy (Clear); Bilirubin, Urine 2+ (Neg); Color, Urine Brown (P-Yellow)
[2020-03-16 20:00] LABS: Bacteria Few /hpf; Red Blood Cells, Urine TNTC /hpf (0-2)
[2020-03-16 20:01] LABS: Squamous Epithelial Cells Not Seen /hpf (Few)
[2020-03-16 21:06] LABS: BASOPHILS ABSOLUTE AUTO 0.02 K/mm3 (0.00-0.23); BASOPHILS PERCENT AUTO 0 % (0-2); EOSINOPHILS ABSOLUTE AUTO 0.04 K/mm3 (0.00-0.68); EOSINOPHILS PERCENT AUTO 1 % (0-6); Hematocrit 42.1 % (37.0-53.0); Hemoglobin 13.2 g/dL (13.5-17.5); IMMATURE GRAN ABSOLUTE AUTO 0.02 K/mm3 (0.00-0.10); IMMATURE GRAN PERCENT AUTO 0 % (0-1); LYMPHOCYTES ABSOLUTE AUTO 0.74 K/mm3 (0.84-5.20); LYMPHOCYTES PERCENT AUTO 15 % (21-46); MONOCYTES ABSOLUTE AUTO 0.37 K/mm3 (0.16-1.47); MONOCYTES PERCENT AUTO 8 % (4-13); Mean Corpuscular HGB Conc 31.4 g/dL (31.5-36.5); Mean Corpuscular Volume 102 fL (80-100); Mean Platelet Volume 10.2 fL (9.1-12.4); NEUTROPHILS ABSOLUTE AUTO 3.66 K/mm3 (1.96-9.15); NEUTROPHILS PERCENT AUTO 76 % (41-73); Platelet Count 78 K/mm3 (150-400); RDW Coefficient Variation 19.5 % (11.7-14.2); Red Blood Cell Count 4.13 M/mm3 (4.30-5.90); White Blood Cell Count 4.85 K/mm3 (4.00-11.30)
== END 2020-03-17 01:17 | disposition home or self-care (01) ==
LOC: ER 17:02
PROVIDERS: Emergency Medicine
DX: T83.83XA Hemorrhage due to genitourinary prosthetic devices, implants and grafts, initial encounter (principal); J44.9 Chronic obstructive pulmonary disease, unspecified; I50.9 Heart failure, unspecified; I25.10 Atherosclerotic heart disease of native coronary artery without angina pectoris; K21.9 Gastro-esophageal reflux disease without esophagitis; F32.9 Major depressive disorder, single episode, unspecified; Z95.5 Presence of coronary angioplasty implant and graft; Z87.891 Personal history of nicotine dependence; Z88.1 Allergy status to other antibiotic agents; Z79.899 Other long term (current) drug therapy; Z79.52 Long term (current) use of systemic steroids; Z79.01 Long term (current) use of anticoagulants
CPT/HCPCS: 36415; 51702; 81001; 85025; 87086; 99284

== ENCOUNTER 2020-05-01 10:38 | Inpatient (IN) | payer OTHER, MEDICARE ==
[~2020-05-01] VITALS: Ht 172.7 cm; Wt 78.9 kg
[2020-05-01 11:11] LABS: BASOPHILS ABSOLUTE AUTO 0.03 K/mm3 (0.00-0.23); BASOPHILS PERCENT AUTO 0 % (0-2); EOSINOPHILS PERCENT AUTO 0 % (0-6); Hematocrit 32.9 % (37.0-53.0); Hemoglobin 10.2 g/dL (13.5-17.5); IMMATURE GRAN ABSOLUTE AUTO 0.05 K/mm3 (0.00-0.10); IMMATURE GRAN PERCENT AUTO 0 % (0-1); LYMPHOCYTES ABSOLUTE AUTO 0.38 K/mm3 (0.84-5.20); LYMPHOCYTES PERCENT AUTO 3 % (21-46); MONOCYTES PERCENT AUTO 7 % (4-13); Mean Corpuscular HGB 34.3 pg (26.0-34.0); Mean Corpuscular Volume 111 fL (80-100); Mean Platelet Volume 9.5 fL (9.1-12.4); NEUTROPHILS ABSOLUTE AUTO 11.27 K/mm3 (1.96-9.15); NEUTROPHILS PERCENT AUTO 89 % (41-73); Platelet Count 128 K/mm3 (150-400); RDW Coefficient Variation 17.2 % (11.7-14.2); RDW Standard Deviation 69.9 fL (35.1-46.3); Red Blood Cell Count 2.97 M/mm3 (4.30-5.90); White Blood Cell Count 12.63 K/mm3 (4.00-11.30)
[2020-05-01 11:25] LABS: Alanine Aminotransfer (ALT/SGP 19 U/L (12-78); Alk Phos 62 U/L (50-136); Anion Gap 7 mmol/L (6-16); Aspartate Aminotrans (AST/SGOT 19 U/L (12-37); Bilirubin, Total 2.6 mg/dL (0.1-1.0); Blood Urea Nitrogen 28 mg/dL (8-24); Bun/Creatinine Ratio 38.2 (12.0-20.0); CO2, Blood 26 mmol/L (21-32); Calcium, Blood 8.6 mg/dL (8.5-10.1); Chloride, Blood 105 mmol/L (98-108); Creatinine, Blood 0.73 mg/dL (0.60-1.20); Glomerular Filtration Rate >60 (60-); Glucose, Blood 91 mg/dL (70-99); Potassium, Blood 4.2 mmol/L (3.5-5.5); Sodium, Blood 138 mmol/L (136-145)
[2020-05-01 11:54] LABS: Source, Urine Urostomy Bag
[2020-05-01 11:59] LABS: Blood, Urine 5+ (Neg); Glucose Qualitative, Urine Neg (Neg); Ketones, Urine Neg (Neg); Leukocyte Esterase, Urine 3+ (Neg); Nitrite, Urine Pos (Neg); Protein, Urine 3+ (Neg); Urobilinogen, Urine 2+ (Normal)
[2020-05-01 12:13] LABS: Appearance, Urine Hazy (Clear); Color, Urine Yellow (P-Yellow)
[2020-05-01 12:14] LABS: Bilirubin, Urine 1+ (Neg)
[2020-05-01 12:15] LABS: Source, Urine Urostomy Bag
[2020-05-01 12:25] LABS: Amorphous Mod (0-Heavy); Bacteria Few /hpf; Mucus Light (0-Heavy); Red Blood Cells, Urine TNTC /hpf (0-2); Squamous Epithelial Cells Not Seen /hpf (Few); White Blood Cells, Urine TNTC /hpf (0-5)
[2020-05-01 13:31] LABS: Influenza A, PCR Negative (NEGATIVE); Influenza B, PCR Negative (NEGATIVE); Resp Syncytial Virus, PCR Negative (NEGATIVE); SARS-Cov-2 (COVID-19) PCR, MMC Negative (NEGATIVE)
[2020-05-01] MEDS ORDERED: ELIQUIS5 MG PO (15:48)
[2020-05-01] MEDS ORDERED: ASCO500 PO (15:49)
[2020-05-01] MEDS ORDERED: Aspirin EC81 MG PO (15:49)
[2020-05-01] MEDS ORDERED: BUME1 PO (15:50)
[2020-05-01] MEDS ORDERED: FINA5 PO (15:50)
[2020-05-01] MEDS ORDERED: DOCU LIQUI50 MG/5 ML PO (15:50)
[2020-05-01] MEDS ORDERED: FERSU300 PO (15:50)
[2020-05-01] MEDS ORDERED: METO25 PO (15:51)
[2020-05-01] MEDS ORDERED: Synthroid200 MCG PO (15:51)
[2020-05-01] MEDS ORDERED: DAILY-VITE1 EACH PO (15:52)
[2020-05-01] MEDS ORDERED: MIRT15 PO (15:52)
[2020-05-01] MEDS ORDERED: MIDO5 PO (15:52)
[2020-05-01] MEDS ORDERED: MYCO250 PO (15:53)
[2020-05-01] MEDS ORDERED: STIOLTO RESPIMAT4 G1 INH (15:54)
[2020-05-01] MEDS ORDERED: PANT40 PO (15:54)
[2020-05-01] MEDS ORDERED: PRED20 PO (15:55)
[2020-05-01] MEDS ORDERED: PRAM.5 PO (15:55)
[2020-05-01] MEDS ORDERED: Flomax0.4 MG PO (15:55)
[2020-05-01] MEDS ORDERED: TRAZ50 PO (15:55)
--- NOTE | 2020-05-02 06:16 | NUR ---
Shift Summary Yash is alert to self, birthday and event. He is forgetful at times and slow to respond, quickly looses thoughts. Hard of hearing, request hearing aids be kept in personal container in plastic bag at bedside. Vitals remain stable with slightly elevated temp. On tele - sinus tach with HR in the 90's-100's. IV on L forarm, saline locked and flushing well. On room air. Peg tube flushed and tubing remained brown stained, site is slightly red. Large hernia in left quadrant, pt states "it is not painful". Bruising/scabs scattered throughout with scratches to the right groin. Slight redness noted on coccyx when changing patient. Bruno cath is draining to gravity, with clear alberto urine. Refused to turn throughout the night but was able to re-adjust with pillows. Patient calling appropriatly and very pleasent. Slept most of the night waking for cares.
--- NOTE | 2020-05-02 07:25 | NUR ---
ASSUMED CARE: PT RESTING QUIETLY IN BED AT THIS TIME. NSR IN THE 90S AT THIS TIME. NO ACUTE NEEDS OR CONCERNS AT PRESENT
--- NOTE | 2020-05-02 17:09 | NUR ---
REPORT GIVEN TO LORI YU. PT TRANSFERRED TO MEDICAL FLOOR VIA WHEEL CHAIR. NO FURTHER NEEDS OR CONCERNS AT THIS TIME.
--- NOTE | 2020-05-02 17:14 | NUR ---
PT ARRIVED TO THE UNIT VIA WHEEL CHAIR. ORIENTED TO THE ROOM. PT SITTING IN A CHAIR CALL LIGHT WITHIN REACH.
--- NOTE | 2020-05-02 21:08 | NUR ---
DR KLEIN notified PT requests tylenol 650 mg for lt shoulder pain PRN takes at home. Order obtained. PT alert active up to chair earlier. Has myasthenia Gravis COPD CHF CAD UTI with chronic pierre cath. Was a PCU transfer earlier today. PT says possible Dc home next few days. EF noted be 10%. Tele monitor SR rate 90 BBB. PT hard of hearing wears bilat hearing aides communicates well. recieving tx for UTI pylonephritis with c & s final results pending.
[2020-05-03] MEDS ORDERED: MIRALAX17 GM PO (02:21)
[2020-05-03] MEDS ORDERED: POTA10T PO (02:22)
[2020-05-03] MEDS ORDERED: VITAMIN E PO (02:24)
[2020-05-03] MEDS ORDERED: ACET325 PO (02:28)
[2020-05-03] MEDS ORDERED: ALBU3IS INH (02:29)
[2020-05-03] MEDS ORDERED: ALBU90OI INH (02:32)
[2020-05-03] MEDS ORDERED: Amiodarone HCl200 MG PO (02:33)
[2020-05-03] MEDS ORDERED: Ginger500 MG PO (02:36)
[2020-05-03] MEDS ORDERED: FURO40 PO (02:36)
--- NOTE | 2020-05-03 04:31 | NUR ---
80 year old [facility] PT with multiple medical problems was PCU transfer yesterday. Hard of hearing wears bilat hearing aides. Difficult to communicate with when hearing aides out. He has myasthenia gravis & copd, chronic indwelling pierre & current UTI with sepsis on admission 05/01/20. He is vague about if he has help at home if needed. DC planning involvement needed for safe DC.
[2020-05-03 05:08] LABS: Hematocrit 29.8 % (37.0-53.0); Hemoglobin 9.2 g/dL (13.5-17.5); Mean Corpuscular HGB 33.6 pg (26.0-34.0); Mean Corpuscular HGB Conc 30.9 g/dL (31.5-36.5); Mean Corpuscular Volume 109 fL (80-100); Mean Platelet Volume 9.9 fL (9.1-12.4); Platelet Count 103 K/mm3 (150-400); RDW Coefficient Variation 16.6 % (11.7-14.2); RDW Standard Deviation 66.9 fL (35.1-46.3); Red Blood Cell Count 2.74 M/mm3 (4.30-5.90); White Blood Cell Count 4.75 K/mm3 (4.00-11.30)
[2020-05-03 05:36] LABS: Anion Gap 6 mmol/L (6-16); Blood Urea Nitrogen 25 mg/dL (8-24); Bun/Creatinine Ratio 34.1 (12.0-20.0); CO2, Blood 27 mmol/L (21-32); Chloride, Blood 107 mmol/L (98-108); Creatinine, Blood 0.73 mg/dL (0.60-1.20); Glomerular Filtration Rate >60 (60-); Glucose, Blood 82 mg/dL (70-99); Potassium, Blood 3.4 mmol/L (3.5-5.5); Sodium, Blood 140 mmol/L (136-145)
--- NOTE | 2020-05-03 12:28 | NUR ---
Spiritual care visit conducted. Patient is sitting on a chair and alert. PAtient shares about his in rehab. , his medical issues and his desire for prayer. I provide therapeutic listening and prayer. Patient responds well and shows signs of an elevated mood. I will continue to remain available to patient and family.
--- NOTE | 2020-05-03 16:41 | NUR ---
SHIFT SUMMARY- PT A/O, PLESANT AND COOPERATIVE. HE IS EATING AND DRINKING WELL. HE WAS EVALUATED BY PT AND OT THIS SHIFT AND TOLERATED WELL. HE WAS UP TO THE CHAIR FOR SEVERAL HOURS THIS SHIFT. HIS PATTEN IS PATIENT AND DRAINING WELL. HE WAS VISITED BY SPIRITUAL CARE TODAY. HIS BED IS IN THE LOW POSITION AND CALL LIGHT IS WITHIN REACH.
--- NOTE | 2020-05-04 04:33 | NUR ---
SHIFT SUMMARY ASSUMED CARE OF PT AT 1900. PT IS A/OX4. HEART SOUNDS REGULAR, TELE SHOWS SINUS W/ BBB @ 72. LUNG SOUNDS REGULAR. ABD IS DISTENDED, PT HAS PEG TUBE, PT ONLY USES WHEN HE HAS TROUBLE EATING. PT HAS CHRONIC CATH, URINE CLEAR AND DARK YELLOW. PT HAS PITTING EDEMA IN HIS LEGS. PT IS 1P ASSIST TRANSFERS. NO ACUTE EVENTS DURING THE NIGHT. PT SLEPT T/O THE NIGHT. CALL LIGHT IN REACH, BED IN LOWEST POSTITION.
[2020-05-04 04:38] LABS: BASOPHILS ABSOLUTE AUTO 0.02 K/mm3 (0.00-0.23); BASOPHILS PERCENT AUTO 0 % (0-2); EOSINOPHILS ABSOLUTE AUTO 0.03 K/mm3 (0.00-0.68); EOSINOPHILS PERCENT AUTO 1 % (0-6); Hematocrit 29.3 % (37.0-53.0); Hemoglobin 9.1 g/dL (13.5-17.5); IMMATURE GRAN ABSOLUTE AUTO 0.02 K/mm3 (0.00-0.10); IMMATURE GRAN PERCENT AUTO 0 % (0-1); LYMPHOCYTES ABSOLUTE AUTO 0.42 K/mm3 (0.84-5.20); LYMPHOCYTES PERCENT AUTO 8 % (21-46); MONOCYTES PERCENT AUTO 14 % (4-13); Mean Corpuscular HGB 34.3 pg (26.0-34.0); Mean Corpuscular HGB Conc 31.1 g/dL (31.5-36.5); Mean Corpuscular Volume 111 fL (80-100); NEUTROPHILS PERCENT AUTO 77 % (41-73); Platelet Count 109 K/mm3 (150-400); RDW Coefficient Variation 16.3 % (11.7-14.2); RDW Standard Deviation 66.5 fL (35.1-46.3); Red Blood Cell Count 2.65 M/mm3 (4.30-5.90); White Blood Cell Count 5.09 K/mm3 (4.00-11.30)
[2020-05-04 05:06] LABS: Anion Gap 4 mmol/L (6-16); Blood Urea Nitrogen 24 mg/dL (8-24); Bun/Creatinine Ratio 32.5 (12.0-20.0); CO2, Blood 28 mmol/L (21-32); Calcium, Blood 8.3 mg/dL (8.5-10.1); Chloride, Blood 108 mmol/L (98-108); Creatinine, Blood 0.74 mg/dL (0.60-1.20); Glomerular Filtration Rate >60 (60-); Glucose, Blood 90 mg/dL (70-99); Potassium, Blood 3.7 mmol/L (3.5-5.5); Sodium, Blood 140 mmol/L (136-145)
[2020-05-04] MEDS ORDERED: CEFD300 PO (11:20)
[2020-05-04] MEDS ORDERED: VISBIOME PROBI1 EACH PO (11:21)
[2020-05-04] MEDS ORDERED: Lisinopril2.5 MG PO (11:21)
[2020-05-04] MEDS ORDERED: VITAMIN D5000 UNIT PO (11:22)
--- NOTE | 2020-05-04 12:25 | NUR ---
SHIFT SUMMARY. PT DISCHARGED HOME VIA PERSONAL VEHICLE DRIVEN BY CAREGIVER. PT ESCORTED VIA W/C TO ENTRANCE BY CERTIFIED MASTER LOCKSMITH. IV REMOVED. D/C INSTRUCTIONS REVIEWED WITH PT AND COPY PROVIDED. NEW RX FAXED TO [facility] PER PT REQUEST. NO NEW CHANGES OR CONCERNS.
== END 2020-05-04 12:24 | disposition home health service (06) | DRG 698 ==
LOC: ER 10:38 → PCU 14:24 → MEDS 15:20 → PCU 15:26 → MEDS 05-02 17:01 → ENPENDDIS 05-04 10:24 → MEDS 05-04 12:24
PROVIDERS: Emergency Medicine; ADMIT Internal Medicine
DX: T83.592A Infection and inflammatory reaction due to indwelling ureteral stent, initial encounter (principal); A41.9 Sepsis, unspecified organism; R65.20 Severe sepsis without septic shock; I42.9 Cardiomyopathy, unspecified; I50.22 Chronic systolic (congestive) heart failure; N10 Acute pyelonephritis; Z20.828 Contact with and (suspected) exposure to other viral communicable diseases; I25.10 Atherosclerotic heart disease of native coronary artery without angina pectoris; J44.9 Chronic obstructive pulmonary disease, unspecified; K21.9 Gastro-esophageal reflux disease without esophagitis; F32.9 Major depressive disorder, single episode, unspecified; G70.00 Myasthenia gravis without (acute) exacerbation; Z93.3 Colostomy status; Z87.891 Personal history of nicotine dependence; R54 Age-related physical debility; Z95.5 Presence of coronary angioplasty implant and graft; E86.0 Dehydration; E03.2 Hypothyroidism due to medicaments and other exogenous substances
CPT/HCPCS: 0241U; 36415; 51701; 71045; 80048; 80053; 81001; 83605; 84443; 84484; 85025; 85027; 87040; 87077; 87086; 87186; 93005; 93010; 94760; 96361-59; 96365-59; 97116; 97161; 97165; 97535; 99285-25; A9270; A9270-GY; G0008; J0696; J0744; J7030; J7512; J7517; Q2038

== ENCOUNTER 2020-06-14 10:15 | Emergency (ER) | payer OTHER, MEDICARE ==
[~2020-06-14] VITALS: Ht 172.7 cm; Wt 66.2 kg
[~2020-06-14 10:15] MED LIST changes: +ALBU3IS INH; +CEFD300 PO; +DAILY-VITE1 EACH PO; +DOCU LIQUI50 MG/5 ML PO; +FERSU300 PO; +FINA5 PO; +Flomax0.4 MG PO; +Ginger500 MG PO; +MIRALAX17 GM PO; +STIOLTO RESPIMAT4 G1 INH; +Synthroid200 MCG PO; +VISBIOME PROBI1 EACH PO; +VITAMIN D5000 UNIT PO; +VITAMIN E PO
[2020-06-14 10:45] LABS: BASOPHILS ABSOLUTE AUTO 0.03 K/mm3 (0.00-0.23); BASOPHILS PERCENT AUTO 0 % (0-2); EOSINOPHILS ABSOLUTE AUTO 0.01 K/mm3 (0.00-0.68); EOSINOPHILS PERCENT AUTO 0 % (0-6); Hematocrit 36.2 % (37.0-53.0); Hemoglobin 11.5 g/dL (13.5-17.5); IMMATURE GRAN ABSOLUTE AUTO 0.04 K/mm3 (0.00-0.10); IMMATURE GRAN PERCENT AUTO 0 % (0-1); LYMPHOCYTES ABSOLUTE AUTO 0.59 K/mm3 (0.84-5.20); LYMPHOCYTES PERCENT AUTO 6 % (21-46); MONOCYTES ABSOLUTE AUTO 0.77 K/mm3 (0.16-1.47); MONOCYTES PERCENT AUTO 8 % (4-13); Mean Corpuscular HGB Conc 31.8 g/dL (31.5-36.5); Mean Corpuscular Volume 104 fL (80-100); Mean Platelet Volume 9.8 fL (9.1-12.4); NEUTROPHILS PERCENT AUTO 85 % (41-73); Platelet Count 115 K/mm3 (150-400); RDW Coefficient Variation 13.9 % (11.7-14.2); RDW Standard Deviation 52.7 fL (35.1-46.3); Red Blood Cell Count 3.48 M/mm3 (4.30-5.90); White Blood Cell Count 9.64 K/mm3 (4.00-11.30)
[2020-06-14 11:06] LABS: Source, Urine Catheter
[2020-06-14 11:27] LABS: Alanine Aminotransfer (ALT/SGP 14 U/L (12-78); Albumin, Blood 2.9 g/dL (3.4-5.0); Albumin/Globulin Ratio 0.9 (0.8-1.8); Alk Phos 89 U/L (50-136); Anion Gap 6 mmol/L (6-16); Aspartate Aminotrans (AST/SGOT 30 U/L (12-37); Bilirubin, Total 1.4 mg/dL (0.1-1.0); Blood Urea Nitrogen 26 mg/dL (8-24); CO2, Blood 27 mmol/L (21-32); Calcium, Blood 8.3 mg/dL (8.5-10.1); Chloride, Blood 98 mmol/L (98-108); Creatinine, Blood 0.84 mg/dL (0.60-1.20); Globulin, Blood 3.4 g/dL (2.2-4.0); Glomerular Filtration Rate >60 (60-); Glucose, Blood 79 mg/dL (70-99); Potassium, Blood 4.2 mmol/L (3.5-5.5); Sodium, Blood 131 mmol/L (136-145); Total Protein, Blood 6.3 g/dL (6.4-8.2)
[2020-06-14 11:29] LABS: Bilirubin, Urine Neg (Neg); Blood, Urine 5+ (Neg); Glucose Qualitative, Urine Neg (Neg); Ketones, Urine Neg (Neg); Leukocyte Esterase, Urine 3+ (Neg); Nitrite, Urine Pos (Neg); Protein, Urine 3+ (Neg); Specific Gravity, Urine 1.015 (1.003-1.022); Urobilinogen, Urine 2+ (Normal)
[2020-06-14 11:34] LABS: Appearance, Urine Hazy (Clear); Color, Urine Yellow (P-Yellow)
[2020-06-14 11:35] LABS: White Blood Cells, Urine 25-50 /hpf (0-5)
[2020-06-14 11:36] LABS: Bacteria Many /hpf; Squamous Epithelial Cells Rare /hpf (Few)
[2020-06-14 11:39] LABS: Free Thyroxine 1.46 ng/dL (0.70-1.60); Magnesium, Blood 1.7 mg/dL (1.6-2.4); Thyroid Stimulating Hormone 1.54 uIU/mL (0.360-4.800)
[2020-06-14] MEDS ORDERED: CIPR500 PO (12:10)
== END 2020-06-14 13:04 | disposition home or self-care (01) ==
LOC: ER 10:15
PROVIDERS: Emergency Medicine
DX: N39.0 Urinary tract infection, site not specified (principal); J44.9 Chronic obstructive pulmonary disease, unspecified; E03.9 Hypothyroidism, unspecified; Z88.1 Allergy status to other antibiotic agents; Z79.01 Long term (current) use of anticoagulants; Z79.82 Long term (current) use of aspirin; Z79.899 Other long term (current) drug therapy; Z79.52 Long term (current) use of systemic steroids; Z95.5 Presence of coronary angioplasty implant and graft
CPT/HCPCS: 36415; 71045; 80053; 81001; 83735; 84439; 84443; 84484; 85025; 87077; 87086; 87186; 96360; 99285-25; A9270; J7030

== ENCOUNTER 2020-07-03 13:51 | Emergency (ER) | payer OTHER, MEDICARE ==
[~2020-07-03] VITALS: Ht 172.7 cm; Wt 66.2 kg
[~2020-07-03 13:51] MED LIST changes: +CIPR500 PO
[2020-07-03] MEDS ORDERED: FURO20 (14:07)
[2020-07-03 14:35] LABS: Hematocrit 33.3 % (37.0-53.0); Hemoglobin 10.9 g/dL (13.5-17.5); Mean Corpuscular HGB 31.9 pg (26.0-34.0); Mean Corpuscular HGB Conc 32.7 g/dL (31.5-36.5); Mean Corpuscular Volume 97 fL (80-100); Mean Platelet Volume 10.5 fL (9.1-12.4); Platelet Count 136 K/mm3 (150-400); RDW Coefficient Variation 14.2 % (11.7-14.2); RDW Standard Deviation 51.2 fL (35.1-46.3); Red Blood Cell Count 3.42 M/mm3 (4.30-5.90); White Blood Cell Count 6.61 K/mm3 (4.00-11.30)
[2020-07-03 14:58] LABS: Albumin, Blood 2.9 g/dL (3.4-5.0); Albumin/Globulin Ratio 0.9 (0.8-1.8); Bilirubin, Total 1.5 mg/dL (0.1-1.0); Bun/Creatinine Ratio 27.3 (12.0-20.0); Calcium, Blood 8.7 mg/dL (8.5-10.1); Creatinine, Blood 1.5 mg/dL (0.60-1.20); Globulin, Blood 3.2 g/dL (2.2-4.0); Potassium, Blood 4.1 mmol/L (3.5-5.5); Total Protein, Blood 6.1 g/dL (6.4-8.2)
[2020-07-03 15:30] LABS: BAND PERCENT MAN 3 % (0-8); BASOPHILS PERCENT MAN 0 % (0-2); EOSINOPHILS PERCENT MAN 0 % (0-6); LYMPHOCYTES ABSOLUTE MAN 0.66 K/mm3 (0.84-5.20); LYMPHOCYTES PERCENT MAN 10 % (21-46); MONOCYTES ABSOLUTE MAN 0.39 K/mm3 (0.16-1.47); MONOCYTES PERCENT MAN 6 % (4-13); NEUTROPHILS ABSOLUTE MAN 5.55 K/mm3 (1.96-9.15); SEG NEUTROPHILS PERCENT MAN 81 % (41-73); TOTAL CELLS COUNTED 100
[2020-07-03 15:34] LABS: Source, Urine Catheter
[2020-07-03 15:40] LABS: Appearance, Urine Cloudy (Clear); Blood, Urine 5+ (Neg); Color, Urine Yellow (P-Yellow); Glucose Qualitative, Urine Neg (Neg); Ketones, Urine 1+ (Neg); Leukocyte Esterase, Urine 3+ (Neg); Nitrite, Urine Neg (Neg); Protein, Urine 3+ (Neg); Specific Gravity, Urine 1.025 (1.003-1.022); Urobilinogen, Urine 2+ (Normal)
[2020-07-03 15:45] LABS: Bilirubin, Urine 1+ (Neg)
[2020-07-03 15:46] LABS: Bacteria Many /hpf; Squamous Epithelial Cells Not Seen /hpf (Few); White Blood Cells, Urine 25-50 /hpf (0-5)
[2020-07-03] MEDS ORDERED: ESZO2 PO (16:28)
[2020-07-03] MEDS ORDERED: Cipro500 MG PO (16:28)
== END 2020-07-03 16:51 | disposition home or self-care (01) ==
LOC: ER 13:51
PROVIDERS: Emergency Medicine
DX: N39.0 Urinary tract infection, site not specified (principal); G47.00 Insomnia, unspecified; Z88.1 Allergy status to other antibiotic agents; Z79.899 Other long term (current) drug therapy; Z79.82 Long term (current) use of aspirin; Z79.52 Long term (current) use of systemic steroids; J44.9 Chronic obstructive pulmonary disease, unspecified; I50.9 Heart failure, unspecified; Z87.891 Personal history of nicotine dependence
CPT/HCPCS: 36415; 51702; 80053; 81001; 85025; 87077; 87086; 87186; 99283; A9270

== ENCOUNTER 2020-12-08 11:10 | Observation (INO) | payer OTHER, MEDICARE ==
[~2020-12-08] VITALS: Ht 182.9 cm; Wt 74.5 kg
[~2020-12-08 11:10] MED LIST changes: +Cipro500 MG PO; +ESZO2 PO; +FURO20
[2020-12-08 11:43] LABS: Albumin, Blood 3.1 g/dL (3.4-5.0); Albumin/Globulin Ratio 0.8 (0.8-1.8); Bilirubin, Total 1.4 mg/dL (0.1-1.0); Bun/Creatinine Ratio 17.6 (12.0-20.0); Calcium, Blood 8.5 mg/dL (8.5-10.1); Creatinine, Blood 1.48 mg/dL (0.60-1.20); Globulin, Blood 3.7 g/dL (2.2-4.0); Total Protein, Blood 6.8 g/dL (6.4-8.2)
[2020-12-08 11:47] LABS: BASOPHILS ABSOLUTE AUTO 0.05 K/mm3 (0.00-0.23); BASOPHILS PERCENT AUTO 1 % (0-2); EOSINOPHILS ABSOLUTE AUTO 0.04 K/mm3 (0.00-0.68); EOSINOPHILS PERCENT AUTO 1 % (0-6); Hematocrit 34.2 % (37.0-53.0); Hemoglobin 10.7 g/dL (13.5-17.5); IMMATURE GRAN ABSOLUTE AUTO 0.13 K/mm3 (0.00-0.10); IMMATURE GRAN PERCENT AUTO 2 % (0-1); LYMPHOCYTES ABSOLUTE AUTO 0.96 K/mm3 (0.84-5.20); LYMPHOCYTES PERCENT AUTO 12 % (21-46); MONOCYTES ABSOLUTE AUTO 0.69 K/mm3 (0.16-1.47); MONOCYTES PERCENT AUTO 9 % (4-13); Mean Corpuscular HGB Conc 31.3 g/dL (31.5-36.5); Mean Corpuscular Volume 96 fL (80-100); Mean Platelet Volume 10.6 fL (9.1-12.4); NEUTROPHILS ABSOLUTE AUTO 5.96 K/mm3 (1.96-9.15); NEUTROPHILS PERCENT AUTO 76 % (41-73); Platelet Count 188 K/mm3 (150-400); RDW Coefficient Variation 14.8 % (11.7-14.2); RDW Standard Deviation 51.7 fL (35.1-46.3); Red Blood Cell Count 3.57 M/mm3 (4.30-5.90); White Blood Cell Count 7.83 K/mm3 (4.00-11.30)
[2020-12-08 11:53] LABS: International Normalized Ratio 2.06; Prothrombin Time Results 21.4 Sec (9.7-11.5)
--- NOTE | 2020-12-08 20:01 | NUR ---
SHIFT SUMMARY PT AWAKE, ALERT, ANSWERS QUESTIONS APPROPRIATELY, PAIN TREATED WITH TYLENOL AND DILAUDID PER EMAR. LAURI PO INTAKE OF MEDS AND ENSURE. CHRONIC PATTEN, NEW BAG - AWAITING ENOUGH URINE TO SEND TOX SCREEN AND UA. PLAN FOR PT TO BE NPO AT MIDNIGHT FOR EEG TOMORROW. SURGEON CALLED FOR PEG TUBE FEEDINGS: OK TO PROVIDE THE PT WITH ENSURE TONIGHT AND TUBE FEEDING ORDERS WILL BE ADDRESSED IN AM. PT SLEEPING OFF AND ON, AND INTAKING ENSURE WITH ENCOURAGEMENT, LAURI PO INTAKE. GAVE REPORT TO ROGELIO SANDOVAL.
[2020-12-08 23:29] LABS: Source, Urine Catheter
[2020-12-08 23:35] LABS: Bilirubin, Urine Neg (Neg); Blood, Urine 4+ (Neg); Glucose Qualitative, Urine Neg (Neg); Ketones, Urine Neg (Neg); Leukocyte Esterase, Urine 1+ (Neg); Nitrite, Urine Neg (Neg); Protein, Urine 2+ (Neg); Specific Gravity, Urine 1.015 (1.003-1.022); Urobilinogen, Urine 1+ (Normal)
[2020-12-08 23:42] LABS: Appearance, Urine Clear (Clear); Bacteria Rare /hpf; Color, Urine Yellow (P-Yellow); Red Blood Cells, Urine 0-2 /hpf (0-2); Squamous Epithelial Cells Not Seen /hpf (Few)
[2020-12-08 23:46] LABS: U Amphetamine Screen Not Detected; U Barbituate Screen Not Detected; U Benzodiazapine Screen Not Detected; U Buprenorphine Screen Not Detected; U Cannabinoids Screen Not Detected; U Cocaine Screen Not Detected; U Methadone Screen Not Detected; U Methamphetamine Screen Not Detected; U Opiates Screen DETECTED; U Oxycodone Screen Not Detected; U Phencyclidine Screen Not Detected; U Propoxyphene Screen Not Detected
[2020-12-09 07:18] LABS: Hematocrit 34.5 % (37.0-53.0); Hemoglobin 11.1 g/dL (13.5-17.5); Mean Corpuscular HGB 30.8 pg (26.0-34.0); Mean Corpuscular HGB Conc 32.2 g/dL (31.5-36.5); Mean Corpuscular Volume 96 fL (80-100); Mean Platelet Volume 10.4 fL (9.1-12.4); Platelet Count 176 K/mm3 (150-400); RDW Coefficient Variation 14.8 % (11.7-14.2); RDW Standard Deviation 52.4 fL (35.1-46.3); White Blood Cell Count 9.41 K/mm3 (4.00-11.30)
--- NOTE | 2020-12-09 07:37 | NUR ---
PT A/OX4. VSS ON 2-3L O2. PT FREQUENTLY TAKING NASAL CANNULA OFF STATING "HIS OXYGEN DROPS LOW AND ALWAYS GOES BACK UP". EDUCATION PROVIDED, PT RESISTANT TO EDUCATION AT THIS TIME. PULSE OXIMETER PLACED FOR CLOSER MONITORING. SPO2 DROPPING TO 79-80% ON RA. DRESSING REDRESSED. PATTEN IN PLACE, PATENT AND DRAINING. UA COLLECTED. PT DENIED PAIN ALL NIGHT, C/O MOCTEZUMA THIS AM. IV DILAUDID GIVEN. NPO SINCE MIDNIGHT.
[2020-12-09 07:40] LABS: Alanine Aminotransfer (ALT/SGP 18 U/L (12-78); Albumin, Blood 2.8 g/dL (3.4-5.0); Albumin/Globulin Ratio 0.8 (0.8-1.8); Alk Phos 65 U/L (50-136); Anion Gap 8 mmol/L (6-16); Aspartate Aminotrans (AST/SGOT 15 U/L (12-37); Blood Urea Nitrogen 27 mg/dL (8-24); CO2, Blood 27 mmol/L (21-32); Calcium, Blood 8.3 mg/dL (8.5-10.1); Chloride, Blood 105 mmol/L (98-108); Creatinine, Blood 1.35 mg/dL (0.60-1.20); Globulin, Blood 3.7 g/dL (2.2-4.0); Glomerular Filtration Rate 51 (60-); Glucose, Blood 128 mg/dL (70-99); Potassium, Blood 3.2 mmol/L (3.5-5.5); Sodium, Blood 140 mmol/L (136-145); Total Protein, Blood 6.5 g/dL (6.4-8.2); Troponin I <0.015 ng/mL (0.000-0.040)
--- NOTE | 2020-12-09 16:22 | NUR ---
SHIFT SUMMARY PT A&OX4, 2LNC AFTER HOME EVAL, PT RIDE HOME FELL THROUGH FOR MANAGER CONTENT AND RESCHEDULED FOR THURSDAY PM. NO IV ACCESS NEEDED. BED BATH ASSIST, SHAMPOOED HAIR, CLEANED AND REDRESSED ABRASIONS. AMB SBA/FWW TO BRP/UP IN ROOM/HALLWAY; UP TO CHAIR T/O SHIFT. CHRONIC PATTEN PATENT & DRAINING YELLOW URINE, STAT LOCK ON, OFF FLOOR; BM TODAY. LAURI PO INTAKE, REG DIET, MEDS WITH WATER. PLAN FOR PT TO DC THURSDAY HOME W/[facility] ORDER NEEDS TO BE CONFIRMED RECEIVED SO THEY WILL BRING OXYGEN TO HOSPITAL PRIOR TO DC AND THEN MEET PT AT HIS HOME, [facility] SEE [facility] AND GET OUTPT EEG AND EYE DR APPT. PT AND HOME HEALTH RN LEONID AWARE OF PLAN. WILL REPORT TO ONCOMING ROGELIO RN.
--- NOTE | 2020-12-09 21:45 | NUR ---
URINE OUTPUT FOR DAY AT 100ML. BP SOFT, SYSTOLIC IN MID 80'S. PT ASYMPTOMATIC. STRONG PULSES. POOR FLUID PO INTAKE. ENGINE CLEANER BASIL NOTIFIED. PER MD, PT ALREADY IN FLUID OVERLOAD. INSTRUCTED TO MINITOR PT AND HOLD BP MEDS.
--- NOTE | 2020-12-10 03:00 | NUR ---
PT A/OX4. BP AT 86/62, PT ASYMPTOMATIC. URINE OUTPUT NOTED TO BE ONLY 100ML DURING DAY. MD NOTIFIED. PER MD MONITOR VS NO NEEDED INTERVENTION AT THIS TIME. METOPROLOL HELD. OTHER VSS ON 2L NC. PT DENIES CP/PRESSURE, AND SOB. SR W/ 1ST DEGREE AND BBB ON TELE. PER CHARGE NURSE THERE IS NO ONE IN HOUSE TO INTERROGATE ICD OVER NIGHT, WILL NOTIFY DAY RN. PT FREQUENTLY REMOVING NC, 79-85% ON RA. EDUCATION PROVIDED. PT ANGRY WHEN EDUCATED REGARDING OXYGEN, STATES "I DO NOT NEED IT, IT ALWAYS GOES UP AND DOWN AND I AM FINE". DRESSINGS CDI, NO SIGNS OF BLEEDING ANYWHERE. PATTEN IN PLACE AND PATENT. USING CALL LIGHT TO MAKE NEEDS KNOWN. USING CALL LIGHT TO MAKE NEEDS KNOWN.
[2020-12-10 04:57] LABS: BASOPHILS ABSOLUTE AUTO 0.01 K/mm3 (0.00-0.23); BASOPHILS PERCENT AUTO 0 % (0-2); EOSINOPHILS PERCENT AUTO 0 % (0-6); Hemoglobin 10.2 g/dL (13.5-17.5); IMMATURE GRAN ABSOLUTE AUTO 0.04 K/mm3 (0.00-0.10); IMMATURE GRAN PERCENT AUTO 0 % (0-1); LYMPHOCYTES ABSOLUTE AUTO 0.58 K/mm3 (0.84-5.20); LYMPHOCYTES PERCENT AUTO 6 % (21-46); MONOCYTES ABSOLUTE AUTO 0.63 K/mm3 (0.16-1.47); MONOCYTES PERCENT AUTO 6 % (4-13); Mean Corpuscular HGB 30.4 pg (26.0-34.0); Mean Corpuscular HGB Conc 31.9 g/dL (31.5-36.5); Mean Corpuscular Volume 95 fL (80-100); Mean Platelet Volume 10.4 fL (9.1-12.4); NEUTROPHILS ABSOLUTE AUTO 9.04 K/mm3 (1.96-9.15); NEUTROPHILS PERCENT AUTO 88 % (41-73); Platelet Count 148 K/mm3 (150-400); RDW Standard Deviation 51.4 fL (35.1-46.3); Red Blood Cell Count 3.36 M/mm3 (4.30-5.90)
[2020-12-10 05:28] LABS: Albumin, Blood 2.8 g/dL (3.4-5.0); Albumin/Globulin Ratio 0.9 (0.8-1.8); Bilirubin, Total 0.9 mg/dL (0.1-1.0); Bun/Creatinine Ratio 25.8 (12.0-20.0); Calcium, Blood 8.4 mg/dL (8.5-10.1); Creatinine, Blood 1.2 mg/dL (0.60-1.20); Globulin, Blood 3.2 g/dL (2.2-4.0); Potassium, Blood 3.5 mmol/L (3.5-5.5)
--- NOTE | 2020-12-10 14:10 | NUR ---
PT AND CAREGIVER PROVIDED WITH DISCHARGE INSTRUCTIONS AND PRINTED MATERIAL. DEMONSTRATED TO CAREGIVER DRESSING CHANGING PROCESSES, WHICH SHE STATES UNDERSTANDING OF. PERIPHERAL IV REMOVED WNL. PT'S BELONGINGS TRANSFERRED TO AWAITING VEHICLE BY CAREGIVER, PT TRANSFERRED TO AWAITING VEHICLE VIA WHEELCHAIR.
== END 2020-12-10 13:20 | disposition home or self-care (01) ==
LOC: ER 11:10 → ERHOLD 11:11 → SURS 11:11 → ERHOLD 11:11 → SURS 16:21
PROVIDERS: Internal Medicine; Student in an Organized Health Care Education/Training Program; ADMIT Surgery
DX: S20.213A Contusion of bilateral front wall of thorax, initial encounter (principal); S22.43XA Multiple fractures of ribs, bilateral, initial encounter for closed fracture; S27.329A Contusion of lung, unspecified, initial encounter; S01.81XA Laceration without foreign body of other part of head, initial encounter; S01.21XA Laceration without foreign body of nose, initial encounter; J44.9 Chronic obstructive pulmonary disease, unspecified; K21.9 Gastro-esophageal reflux disease without esophagitis; I49.1 Atrial premature depolarization; I49.3 Ventricular premature depolarization; I44.7 Left bundle-branch block, unspecified; M50.30 Other cervical disc degeneration, unspecified cervical region; M48.02 Spinal stenosis, cervical region; M80.88XA Other osteoporosis with current pathological fracture, vertebra(e), initial encounter for fracture; E03.9 Hypothyroidism, unspecified; I25.10 Atherosclerotic heart disease of native coronary artery without angina pectoris; G70.00 Myasthenia gravis without (acute) exacerbation; N40.0 Benign prostatic hyperplasia without lower urinary tract symptoms; I13.0 Hypertensive heart and chronic kidney disease with heart failure and stage 1 through stage 4 chronic kidney disease, or unspecified chronic kidney disease; N18.9 Chronic kidney disease, unspecified; I50.22 Chronic systolic (congestive) heart failure; R09.02 Hypoxemia; I42.9 Cardiomyopathy, unspecified; R04.0 Epistaxis; I95.9 Hypotension, unspecified; M47.816 Spondylosis without myelopathy or radiculopathy, lumbar region; V47.0XXA Car driver injured in collision with fixed or stationary object in nontraffic accident, initial encounter; Y92.89 Other specified places as the place of occurrence of the external cause; Z88.8 Allergy status to other drugs, medicaments and biological substances; Z95.5 Presence of coronary angioplasty implant and graft; Z87.891 Personal history of nicotine dependence; Z79.01 Long term (current) use of anticoagulants; Z93.1 Gastrostomy status; Z95.810 Presence of automatic (implantable) cardiac defibrillator
CPT/HCPCS: 12011; 36415; 70450; 71045; 71260; 72125; 72170; 74177; 80053; 81001; 83880; 84484; 85025; 85027; 85610; 87086; 93005; 93010; 94640; 94760; 94761; 96374-59; 96375; 96376; 97110; 97162; 97165; 97535; 99285-25; A9270; G0378; G0480; J1170; J1720; J3010; J7030; J7517; Q9967

== ENCOUNTER 2021-01-13 19:54 | Inpatient (IN) | payer OTHER, MEDICARE ==
[~2021-01-13] VITALS: Ht 167.6 cm; Wt 70.2 kg
[2021-01-13 20:27] LABS: Source, Urine Catheter
[2021-01-13 20:31] LABS: Appearance, Urine Cloudy (Clear); Bilirubin, Urine Neg (Neg); Blood, Urine 4+ (Neg); Color, Urine Yellow (P-Yellow); Glucose Qualitative, Urine Neg (Neg); Hematocrit 32.9 % (37.0-53.0); Hemoglobin 10.6 g/dL (13.5-17.5); Ketones, Urine Neg (Neg); Leukocyte Esterase, Urine 3+ (Neg); Mean Corpuscular HGB 30.1 pg (26.0-34.0); Mean Corpuscular HGB Conc 32.2 g/dL (31.5-36.5); Mean Corpuscular Volume 94 fL (80-100); Mean Platelet Volume 10.8 fL (9.1-12.4); Nitrite, Urine Pos (Neg); Platelet Count 78 K/mm3 (150-400); Protein, Urine 3+ (Neg); RDW Coefficient Variation 18.4 % (11.7-14.2); RDW Standard Deviation 63.2 fL (35.1-46.3); Red Blood Cell Count 3.52 M/mm3 (4.30-5.90); Specific Gravity, Urine 1.015 (1.003-1.022); Urobilinogen, Urine 1+ (Normal); White Blood Cell Count 3.43 K/mm3 (4.00-11.30)
[2021-01-13 20:37] LABS: Amorphous Heavy (0-Heavy); Bacteria Many /hpf; Red Blood Cells, Urine 0-2 /hpf (0-2); Squamous Epithelial Cells Rare /hpf (Few); Triple Phosphate Crystals Mod /hpf; White Blood Cells, Urine 50-100 /hpf (0-5)
[2021-01-13 20:42] LABS: Alanine Aminotransfer (ALT/SGP 17 U/L (12-78); Albumin/Globulin Ratio 0.9 (0.8-1.8); Alk Phos 116 U/L (50-136); Anion Gap 11 mmol/L (6-16); Aspartate Aminotrans (AST/SGOT 24 U/L (12-37); Bilirubin, Total 0.7 mg/dL (0.1-1.0); Blood Urea Nitrogen 18 mg/dL (8-24); Bun/Creatinine Ratio 19.7 (12.0-20.0); CO2, Blood 22 mmol/L (21-32); Calcium, Blood 8.5 mg/dL (8.5-10.1); Chloride, Blood 101 mmol/L (98-108); Creatinine, Blood 0.92 mg/dL (0.60-1.20); Globulin, Blood 3.5 g/dL (2.2-4.0); Glomerular Filtration Rate >60 (60-); Glucose, Blood 105 mg/dL (70-99); Potassium, Blood 3.8 mmol/L (3.5-5.5); Sodium, Blood 134 mmol/L (136-145); Total Protein, Blood 6.5 g/dL (6.4-8.2)
[2021-01-13 20:50] LABS: BAND PERCENT MAN 12 % (0-8); BASOPHILS PERCENT MAN 0 % (0-2); EOSINOPHILS PERCENT MAN 0 % (0-6); LYMPHOCYTES ABSOLUTE MAN 0.37 K/mm3 (0.84-5.20); LYMPHOCYTES PERCENT MAN 11 % (21-46); MONOCYTES ABSOLUTE MAN 0.27 K/mm3 (0.16-1.47); MONOCYTES PERCENT MAN 8 % (4-13); NEUTROPHILS ABSOLUTE MAN 2.77 K/mm3 (1.96-9.15); SEG NEUTROPHILS PERCENT MAN 69 % (41-73); TOTAL CELLS COUNTED 100
[2021-01-13 21:18] LABS: Troponin I 0.016 ng/mL (0.000-0.040)
[2021-01-13 21:37] LABS: SARS-Cov-2 (COVID-19) PCR, MMC POSITIVE (NEGATIVE)
[2021-01-13 22:28] LABS: Ferritin, Serum 628 ng/mL (26-388); Lactate Dehydrogenase (Ld),Bld 289 U/L (100-240)
--- NOTE | 2021-01-14 00:30 | NUR ---
RECEIVED HAND OFF FROM Rambo GARCIA RN USING SBAR. TRANSPORTED TO ROOM PCU12 VIA STRETCHER. TRANSFERED TO BED USING SLIDER SHEET AND FULL STAFF ASSISTANCE, TOLERATED WELL. AAO X2, MILD TARDIVE MOVEMENT NOTED. PT REPORTEDLY HAS RLS. ORIENTED TO ROOM, POC, AND CALL LYNN. STATES HE IS VERY [place], AND WAS ABLE TO MAKE IT KNOWN WHEN HE UNDERSTOOD. DENIES QUESTIONS AT THIS TIME. BEDSIDE MONITORING APPLIED, ELEVATED HR AND RESP NOTED. PT REPOSTITIONED FOR COMFORT. REQUESTED WATER, BUT IS CURRENTLY NPO. ORAL CARE PROVIDED FOR COMFORT. 16FR PATTEN CATH CHANGED USING STERILE TECHNIQUE. NO IMMEDIATE OUTPUT NOTED. PREVIOUS PATTEN DISCARDED AFTER NOTING SMALL AMOUNT OF CLOUDY FOUL SMELLING, YELLOW FLUID WITH SEDIMENT IN TUBING AND BAG. STAT LOCK IN PLACE. ADMISSION ASSESSMENT IN PROGRESS. SAFETY MEASURES IN PLACE. WILL CONTINUE TO MONITOR AND ADDRESS NEEDS THEY ARISE.
[2021-01-14 01:37] LABS: Hematocrit 33.5 % (37.0-53.0); Mean Corpuscular HGB 30.4 pg (26.0-34.0); Mean Corpuscular HGB Conc 32.8 g/dL (31.5-36.5); Mean Corpuscular Volume 93 fL (80-100); Mean Platelet Volume 9.8 fL (9.1-12.4); Platelet Count 61 K/mm3 (150-400); RDW Coefficient Variation 18.4 % (11.7-14.2); RDW Standard Deviation 62.7 fL (35.1-46.3); Red Blood Cell Count 3.62 M/mm3 (4.30-5.90); White Blood Cell Count 3.45 K/mm3 (4.00-11.30)
[2021-01-14 01:45] LABS: Albumin/Globulin Ratio 0.9 (0.8-1.8); Bun/Creatinine Ratio 15.7 (12.0-20.0); Calcium, Blood 8.5 mg/dL (8.5-10.1); Creatinine, Blood 1.34 mg/dL (0.60-1.20); Globulin, Blood 3.4 g/dL (2.2-4.0); Potassium, Blood 3.7 mmol/L (3.5-5.5); Total Protein, Blood 6.4 g/dL (6.4-8.2)
[2021-01-14 01:59] LABS: BAND PERCENT MAN 12 % (0-8); BASOPHILS PERCENT MAN 0 % (0-2); EOSINOPHILS PERCENT MAN 0 % (0-6); LYMPHOCYTES ABSOLUTE MAN 0.31 K/mm3 (0.84-5.20); LYMPHOCYTES PERCENT MAN 9 % (21-46); MONOCYTES ABSOLUTE MAN 0.44 K/mm3 (0.16-1.47); MONOCYTES PERCENT MAN 13 % (4-13); NEUTROPHILS ABSOLUTE MAN 2.69 K/mm3 (1.96-9.15); SEG NEUTROPHILS PERCENT MAN 66 % (41-73); TOTAL CELLS COUNTED 100
--- NOTE | 2021-01-14 06:26 | NUR ---
LYING ON RIGHT SIDE FACING THE WINDOW. HAS RESTED WELL SINCE ADMISSION. DROPLETTE PRECAUTIONS IN PLACE. REMAINS ON RA WHIE MAINTAINING SAT AT 90%-93%. ATTENDS REMAIN C/D/I. DENIES FURTHER NEEDS OR WANTS AT THIS TIME. SAFETY MEASURES IN PLACE. WILL CONTINUE TO MONITOR AND GIVE HAND OFF TO ONCOMING SHIFT USING SBAR DURING BEDSIDE REPORT.
--- NOTE | 2021-01-14 10:28 | NUR ---
Case Conference Note Spoke with crime lab technician Kathie and discussed case. [facility] [place]. Called and spoke with Pt daughter in law Debra and Pt's step son (POA) alana. Reviewed plan of care and plan for transfer to [facility] in [place]. Answered questions and discussed Pt's current code status. Educated on life sustaining treatments including risk factors and implications of CPR. Discussed the importance of reviewing Pt's wishes on a routine basis. Family expresses appreciation and are in agreement with plan. Palliative Care will remain available.
--- NOTE | 2021-01-14 18:50 | NUR ---
RN SHIFT SUMMARY PT WAS HYPOTENSIVE THIS MORNING bp'S IN 82/62.DOCTOR WAS NOTIFIED AND 1800 ML LACTATED RINGERS WAS ADMINISTERED IV BOLUS. BP'S HAVE IMPROVED TO 97/66 AND 99/63. PT SEEEMS ALERT AND ORIENT X 4. PT IS HARD OF HEARING. ECHO WAS COMPLETED THIS EVENING AT 6 PM.SPO2 ON ROOM AIR IS 97%
--- NOTE | 2021-01-14 19:21 | NUR ---
Echocardiogram completed.
--- NOTE | 2021-01-15 00:25 | NUR ---
HOSPITALIST NOTIFIED HOSPITALIST NOTIFIED OF PT'S INCREASED WORK OF BREATHING & COURSE/WET LUNG SOUNDS. PT IS ALSO REQUESTING AN ALBUTEROL BREATHING TX AT THIS TIME. PT APPEARS TO BE FLUID OVERLOAD. SPO2 REMAINS >95% ON ROOM AIR. PT STATES HE TAKES BOTH ALBUTEROL & BUMEX @ HOME. 40 MG IV LASIX ORDERED TO BE GIVEN AT THIS TIME IF SYSTOLIC BP >90. ALBUTEROL TX Q2 HRS PRN.
[2021-01-15 04:01] LABS: BASOPHILS ABSOLUTE AUTO 0.02 K/mm3 (0.00-0.23); BASOPHILS PERCENT AUTO 0 % (0-2); EOSINOPHILS PERCENT AUTO 0 % (0-6); Hemoglobin 10.6 g/dL (13.5-17.5); IMMATURE GRAN ABSOLUTE AUTO 0.03 K/mm3 (0.00-0.10); IMMATURE GRAN PERCENT AUTO 1 % (0-1); LYMPHOCYTES ABSOLUTE AUTO 0.89 K/mm3 (0.84-5.20); LYMPHOCYTES PERCENT AUTO 18 % (21-46); MONOCYTES ABSOLUTE AUTO 0.28 K/mm3 (0.16-1.47); MONOCYTES PERCENT AUTO 6 % (4-13); Mean Corpuscular HGB 30.5 pg (26.0-34.0); Mean Corpuscular HGB Conc 33.1 g/dL (31.5-36.5); Mean Corpuscular Volume 92 fL (80-100); NEUTROPHILS ABSOLUTE AUTO 3.78 K/mm3 (1.96-9.15); NEUTROPHILS PERCENT AUTO 76 % (41-73); Platelet Count 59 K/mm3 (150-400); RDW Coefficient Variation 18.6 % (11.7-14.2); RDW Standard Deviation 62.4 fL (35.1-46.3); Red Blood Cell Count 3.48 M/mm3 (4.30-5.90)
[2021-01-15 04:19] LABS: Albumin, Blood 2.6 g/dL (3.4-5.0); Anion Gap 7 mmol/L (6-16); Blood Urea Nitrogen 27 mg/dL (8-24); Bun/Creatinine Ratio 24.3 (12.0-20.0); CO2, Blood 26 mmol/L (21-32); Calcium, Blood 7.6 mg/dL (8.5-10.1); Chloride, Blood 102 mmol/L (98-108); Creatinine, Blood 1.11 mg/dL (0.60-1.20); Glomerular Filtration Rate >60 (60-); Glucose, Blood 71 mg/dL (70-99); Phosphorus, Blood 2.8 mg/dL (2.5-4.9); Potassium, Blood 3.4 mmol/L (3.5-5.5); Sodium, Blood 135 mmol/L (136-145)
--- NOTE | 2021-01-15 06:42 | NUR ---
SHIFT SUMMARY PT REMIANS A&O X3, ON ROOM AIR. LUNG SOUNDS WET W/CRACKLES TO BILATERAL BASES. PT STATES BREATHING HAS IMPROVED SINCE LASIX WAS GIVEN, 1350 ML'S OF URINE PRODUCED. RT WAS ALSO CALLED TO GIVE ALBUTEROL TX, FLUTTER VALVE THERAPY INTRODUCED, EDUCATION PROVIDED. SPO2 >95%. AFIB, DENIES CP. BED ALARM IS ON FOR SAFETY. CALL LIGHT IN REACH. REPORT GIVEN TO DAY RN
--- NOTE | 2021-01-15 19:20 | NUR ---
RN SHIFT SUMMARY PT REMAINS STABLE ON MIDODRONE BP'S AND DIUREIS WITH LASIX. PT IS PREPARING TO [facility] IN [place]. PT IS AWAITIN DIET CONSULT TO RESUME TUBE FEED HE DOES AT HOME WITH 1.5 JEVITY.
[2021-01-16 05:12] LABS: Alanine Aminotransfer (ALT/SGP 327 U/L (12-78); Albumin, Blood 2.7 g/dL (3.4-5.0); Albumin/Globulin Ratio 0.8 (0.8-1.8); Alk Phos 106 U/L (50-136); Anion Gap 10 mmol/L (6-16); Aspartate Aminotrans (AST/SGOT 604 U/L (12-37); Blood Urea Nitrogen 27 mg/dL (8-24); CO2, Blood 23 mmol/L (21-32); Calcium, Blood 8.3 mg/dL (8.5-10.1); Chloride, Blood 100 mmol/L (98-108); Globulin, Blood 3.5 g/dL (2.2-4.0); Glomerular Filtration Rate >60 (60-); Glucose, Blood 76 mg/dL (70-99); Iron Serum 30 ug/dL (65-175); Percent Saturation 15.2 % (20.0-50.0); Potassium, Blood 3.9 mmol/L (3.5-5.5); Sodium, Blood 133 mmol/L (136-145); Total Iron Binding Capacity 197 ug/dL (250-450); Total Protein, Blood 6.2 g/dL (6.4-8.2)
[2021-01-16 05:35] LABS: Ferritin, Serum 2451 ng/mL (26-388)
[2021-01-16 05:52] LABS: Hemoglobin 11.2 g/dL (13.5-17.5); Mean Corpuscular HGB 30.6 pg (26.0-34.0); Mean Corpuscular HGB Conc 32.9 g/dL (31.5-36.5); Mean Corpuscular Volume 93 fL (80-100); Platelet Count 79 K/mm3 (150-400); RDW Coefficient Variation 18.6 % (11.7-14.2); RDW Standard Deviation 62.9 fL (35.1-46.3); Red Blood Cell Count 3.66 M/mm3 (4.30-5.90); White Blood Cell Count 5.95 K/mm3 (4.00-11.30)
--- NOTE | 2021-01-16 06:01 | NUR ---
shift summary pt rested some through night. alert and oriented, able to make needs known. cooperative with plan of care. hard of hearing, and a little anxious at times. sats >90% on room air. tele afib - rate 80's-100's. no c/o chest pain. able to transition to side of bed to sit up, did well with transitioning with some assitance. soft bite diet, had some milk overnight, tolerated well, took po meds well. generalized bruising. was able to have bowel movement after bowel regimen started - frequent loose movements noted. peg tube remains in place and not being used at this time. vss. bp soft, but stable. no c/o pain. call light within reach, bed in lowest position. will continue to monitor.
--- NOTE | 2021-01-16 14:04 | NUR ---
PT TRANSER REPORT WAS GIVEN TO NURSE THIBODEAUX
--- NOTE | 2021-01-16 17:14 | NUR ---
partial echo completed, full echo done 2 days prior
--- NOTE | 2021-01-16 18:05 | NUR ---
SHIFT SUMMARY PATIENT IS ALERT AND ORIENTATED X3. PATIENT IS ON ROOM AIR AND IS BEING SPOT CHECKED WITH VITALS AND IS MAINTAINING 94% ON ROOM AIR. PATIENT APPEARS CONFUSED AND IS HARD OF HEARING. PATIENT TRANSFERED FROM PCU THIS AFTERNOON. PATIENT HAS HAD DOSE OF MIDODRINE TO MAINTAIN BP OF 90S/50S. PATIENT HAS HAD DIETARY CONSULT FOR CONTINUATION OF TUBE FEEDINGS.
--- NOTE | 2021-01-16 23:29 | NUR ---
Patent IV lt FA when PT transferred from PCU. Had IV contrast in ABD CT of abd pelvis. TOlerated.
[2021-01-17 05:55] LABS: Hematocrit 32.1 % (37.0-53.0); Hemoglobin 10.5 g/dL (13.5-17.5); Mean Corpuscular HGB 30.3 pg (26.0-34.0); Mean Corpuscular HGB Conc 32.7 g/dL (31.5-36.5); Mean Corpuscular Volume 93 fL (80-100); Mean Platelet Volume 12.1 fL (9.1-12.4); NRBC ABSOLUTE 0.04 K/mm3 (0.00-0.02); NRBC Auto 0.8 /100 WBC (0.0-0.2); Platelet Count 89 K/mm3 (150-400); RDW Coefficient Variation 18.6 % (11.7-14.2); RDW Standard Deviation 63.4 fL (35.1-46.3); Red Blood Cell Count 3.47 M/mm3 (4.30-5.90); White Blood Cell Count 4.89 K/mm3 (4.00-11.30)
[2021-01-17 06:57] LABS: Albumin, Blood 2.6 g/dL (3.4-5.0); Albumin/Globulin Ratio 0.8 (0.8-1.8); Bilirubin, Total 1.3 mg/dL (0.1-1.0); Bun/Creatinine Ratio 25.6 (12.0-20.0); Calcium, Blood 8.4 mg/dL (8.5-10.1); Creatinine, Blood 1.6 mg/dL (0.60-1.20); Globulin, Blood 3.2 g/dL (2.2-4.0); Potassium, Blood 4.3 mmol/L (3.5-5.5); Total Protein, Blood 5.8 g/dL (6.4-8.2)
--- NOTE | 2021-01-17 07:22 | NUR ---
80 YEAR OLD MaLE APPEARS OLDER THAN ACTUAL AGE WITH COVID 19. pt HAS HOME CARE PROVIDER 3 DAYS WEEK OTHERWISE ALONE AT HOME OUTSIDE [facility]. pt IN SPECIAL DROPLET CONTACT ENHANCED PRECAUTIONS. HE HAS HX OF MRSA ABSCESS, MYESTHENIA GRAVIS. pEG TUBE FEED TOLE 2 BOLUS FEEDS OF 250 ML WITH 200 ML FREE WATER FLUSH Q 4 HOURS. bps LOW 90S OVER 50S. TACHPNEA BUT ON ROOM AIR. pt HAS AICD WITH UNKNOWN FUNCTION OR DATE OF INSERTION. lIVER ENZYMES HIGHLY ELEVATED THIS AM. DENIES ABD PAIN BUT ABD DISTENDED TENDER.
--- NOTE | 2021-01-17 08:07 | NUR ---
DR. THOMPSON NOTIFIED BY TELEPHONE OF PATIENTS ELEVATED LIVER ENZYMES AND DISTENDED/SOFT ABDOMEN. DR. THOMPSON STATES SHE WAS AWARE AND IS WAITING FOR THE RESULTS OF THE CT TO COME BACK. WILL CONTINUE TO MONITOR
--- NOTE | 2021-01-17 13:45 | NUR ---
THIS RN ADMINISTERED 200ML WATER VIA GI TUBE. NO C/O PAIN DURING ADMINISTRATION. AFTER THE WATER WAS GIVEN, THIS RN NOTICED CLEAR LIQUID LEAKING FROM THE SITE ALONG WITH HEARING BUBBLING SOUNDS COMING FROM THE SITE WITH BREATHING. REDNESS AT DISCHARGE AT THE SITE IS NOTED. DR. THOMPSON NOTIFIED OF THESE NEW FINDINGS, SHE ORDERED A SURGERY CONSULT TO BE PLACED AND KUB TO BE ORDERED. DR. FORRESTER HAS BEEN CONSULTED AND THE KUB HAS BEEN COMPLETED AT THIS TIME.
--- NOTE | 2021-01-17 16:53 | NUR ---
DR. THOMPSON NOTIFIED OF PATIENT'S RESPIRATORY RATE OF 38/MIN. LASIX IV ORDERED.
--- NOTE | 2021-01-17 18:20 | NUR ---
PATIENT IS ALERT AND DISORIENTED. HE IS NEWHALEN, HEARING AIDS AT THE BEDSIDE. CHRONIC PATTEN. ABDOMEN DISTENSION. DR. FORRESTER ASSESSED THE PATIENT'S PEG TUBE AND ADJUSTED IT TO FIT CLOSER TO THE PATIENT'S SKIN. THE PATIENT'S RESPIRATIONS THIS AFTERNOON WAS 38 BPM, DR. THOMPSON ORDERED IV LASIX. ONE FEEDING WAS GIVEN TO THE PATIENT TODAY AND 400ML OF WATER THROUGH THE GI TUBE. WILL CONTINUE TO MONITOR
--- NOTE | 2021-01-17 20:06 | NUR ---
T on room air sat 88-89 does not rise with repositioning. Oxygen 2 l nc to get sat 93. covid 19 positive. Tube feeding appliance tightened by surgeon for leaking of air & fluid. PT very hard of hearing has hearing aides at bedside.
[2021-01-18 05:29] LABS: Hemoglobin 10.3 g/dL (13.5-17.5); Mean Corpuscular HGB 30.1 pg (26.0-34.0); Mean Corpuscular HGB Conc 32.2 g/dL (31.5-36.5); Mean Corpuscular Volume 94 fL (80-100); Mean Platelet Volume 12.2 fL (9.1-12.4); NRBC ABSOLUTE 0.07 K/mm3 (0.00-0.02); NRBC Auto 1.1 /100 WBC (0.0-0.2); Platelet Count 104 K/mm3 (150-400); RDW Coefficient Variation 18.5 % (11.7-14.2); RDW Standard Deviation 63.2 fL (35.1-46.3); Red Blood Cell Count 3.42 M/mm3 (4.30-5.90); White Blood Cell Count 6.48 K/mm3 (4.00-11.30)
[2021-01-18 06:19] LABS: Albumin, Blood 2.5 g/dL (3.4-5.0); Albumin/Globulin Ratio 0.8 (0.8-1.8); Bilirubin, Total 1.5 mg/dL (0.1-1.0); Bun/Creatinine Ratio 29.6 (12.0-20.0); Calcium, Blood 7.8 mg/dL (8.5-10.1); Creatinine, Blood 1.62 mg/dL (0.60-1.20); Globulin, Blood 3.3 g/dL (2.2-4.0); Magnesium, Blood 2.1 mg/dL (1.6-2.4); Phosphorus, Blood 3.4 mg/dL (2.5-4.9); Potassium, Blood 4.3 mmol/L (3.5-5.5); Total Protein, Blood 5.8 g/dL (6.4-8.2)
--- NOTE | 2021-01-18 15:53 | NUR ---
Case Conference Note Spoke with Primary RN Dara and Dr Jain. Reviewed plan of care and discussed case. Pt has become increasingly confused and is now refusing care including his tube feedings. Care team reports code status discussion with family would be beneficial. Spoke step son Mickey who reports only having financial POA but feels Pt's code status should be DNR. Spoke with family friend Debra who agrees Pt should be DNR. Pt's has documented on his POLST if treatment is no longer beneficial then discontinue. Discussed case with Gopal Carter from [employer] who reports based off information Pt listed changing Pt's code status to DNR aligns with Pt's wishes. Dr Jain is in agreement. Changed Pt's code status to DNR per V/O from Dr Jain. Awaiting phone call from Pt's son Memo and will provide update.
--- NOTE | 2021-01-18 17:18 | NUR ---
Case Conference Note Received call from Pt's son Memo [phone]. Memo reports having a conversation with other family members. Family is reporting that Pt would want to focus on comfort at this stage. Educated on comfort care philosophy with V/U made. Family would like to pursue comfort care. Offered therapeutic listening and answered questions. Memo expresses appreciation and reports no other concerns at this time. Spoke with Dr Jain and relayed conversation and wishes. Placed comfort care order, comfort care order set per V/O from Dr Jain. Palliative Care will remain available.
--- NOTE | 2021-01-18 18:10 | NUR ---
PATIENT IS ALERT AND DISORIENTED. REFUSES MEDICATIONS AND TUBE FEEDS AT TIMES. LABORED BREATHING. HIS ABDOMEN IS DISTENDED BUT NOT TENDER. PATIENT C/O BACK PAIN. TRANSITIONED TO COMFORT CARE THIS AFTERNOON. WILL CONTINUE TO MONITOR
--- NOTE | 2021-01-18 19:38 | NUR ---
Pt with covid 19 & multiple underlying medical conditions CAD AICD gtube & compression fx with acute pain. Changed to DNR status today and Comfort measures. PT on 2 l oxygen for comfort room air sat less than 90%. Purple band applied. Bruno cath patent. Will assess if PT desires tube feed. Continues in special droplet contact isolation for covid 19.
--- NOTE | 2021-01-19 00:12 | NUR ---
medicated PT with covid 19 with roxinol 5 mg and 1 mg iv ativan with helpful effect.Nonverbal tonight has hearing aides in.
--- NOTE | 2021-01-19 04:49 | NUR ---
PT with multiple medical problems & covid 19 continues in special droplet contact precautions. He was changed to DNR status yesterday & started on comfort measures. He has been medicated for pain & anxiety with helpful effect. PT has taken no oral except sl roxicodone. Has patent pierre & gtube. declined tube feeding . Resting quietly.
--- NOTE | 2021-01-19 07:10 | NUR ---
ON ASSESSMENT THIS MORNING PT FOUND TO HAVE NO RESPIRATIONS. PULSES WERE NOT PALPABLE AND NO HEART SOUNDS. TOD NOTED AT 0658. POST MORTEM CARE COMPLETED.
--- NOTE | 2021-01-19 07:47 | NUR ---
ATTEMPTED TO CONTACT SISTER WADE LISTED IN CONTACTS BUT NUMBER IS OUT OF ORDER. NO OTHER CONTACTS LISTED.
--- NOTE | 2021-01-19 08:11 | NUR ---
STEP SON ENDER RETURNED CALL AND WAS NOTIFIED OF . HE REQUESTS WE CONTACT [facility] IN [place].
== END 2021-01-19 06:58 | DRG 871 ==
LOC: ER 19:54 → MEDS 22:22 → PCU 22:22 → MEDS 01-16 12:49
PROVIDERS: Emergency Medicine; Family Medicine; Internal Medicine; ADMIT Hospitalist
PROC: 8E0ZXY6 Isolation (ICD-10-PCS; principal; 2021-01-13)
DX: A41.89 Other specified sepsis (principal); U07.1 COVID-19; G92 Toxic encephalopathy; K72.00 Acute and subacute hepatic failure without coma; I50.23 Acute on chronic systolic (congestive) heart failure; I42.9 Cardiomyopathy, unspecified; E87.1 Hypo-osmolality and hyponatremia; N17.9 Acute kidney failure, unspecified; E87.2 Acidosis; M48.56XA Collapsed vertebra, not elsewhere classified, lumbar region, initial encounter for fracture; E46 Unspecified protein-calorie malnutrition; N39.0 Urinary tract infection, site not specified; Z66 Do not resuscitate; Z51.5 Encounter for palliative care; G70.00 Myasthenia gravis without (acute) exacerbation; K21.9 Gastro-esophageal reflux disease without esophagitis; I25.10 Atherosclerotic heart disease of native coronary artery without angina pectoris; E03.9 Hypothyroidism, unspecified; F32.9 Major depressive disorder, single episode, unspecified; G25.81 Restless legs syndrome; D69.59 Other secondary thrombocytopenia; E88.09 Other disorders of plasma-protein metabolism, not elsewhere classified; R65.20 Severe sepsis without septic shock; I48.91 Unspecified atrial fibrillation; D64.9 Anemia, unspecified; J44.9 Chronic obstructive pulmonary disease, unspecified; Z95.5 Presence of coronary angioplasty implant and graft; Z95.810 Presence of automatic (implantable) cardiac defibrillator; Z93.1 Gastrostomy status; Z98.42 Cataract extraction status, left eye; Z98.41 Cataract extraction status, right eye; Z98.890 Other specified postprocedural states; Z87.891 Personal history of nicotine dependence; Z88.1 Allergy status to other antibiotic agents; Z79.82 Long term (current) use of aspirin; Z79.52 Long term (current) use of systemic steroids; Z79.899 Other long term (current) drug therapy; Z79.01 Long term (current) use of anticoagulants; Z68.21 Body mass index [BMI] 21.0-21.9, adult
CPT/HCPCS: 36415; 71045; 74018; 74177; 80053; 80069; 81001; 82024; 82533; 82728; 83540; 83550; 83605; 83615; 83735; 83880; 84100; 84145; 84443; 84484; 85025; 85027; 85379; 86140; 87040; 87086; 92610; 93005; 93010; 93306; 93308; 93321; 94640; 94667; 94760; 94762; 96365; 97110; 97162; 99285-25; A9270; J0713; J1650; J1940; J1956; J2060; J7030; J7120; Q9967; U0004